=== PATIENT | male | born 1930 | race Caucasian/White ===

== ENCOUNTER 2016-12-05 12:51 | Inpatient (IN) | payer MEDICARE, OTHER ==
[~2016-12-05] VITALS: Ht 165.1 cm; Wt 65.0 kg
[2016-12-05] MEDS ORDERED: ONDANSETRON 4 MG INJ IV STA (12:54)
[2016-12-05] MEDS ORDERED: morphine 4 MG/ML VIAL IV STA (12:54)
[2016-12-05] MEDS ORDERED: SOD CHLORIDE 0.9% 1,000 ML IV STA (12:54)
[2016-12-05] MEDS ORDERED: ONDANSETRON 4 MG INJ IV PRN ×3 (13:00→18:00)
[2016-12-05] MEDS ORDERED: ACETAMINOPHEN 325 MG TAB PO PRN ×2 (13:00→18:00)
[2016-12-05 13:39] LABS: BASOPHILS % 0.2 % (0.0-2.0); EOSINOPHILS % 0.1 % (0.0-7.0); HEMATOCRIT 35.9 % (42.0-52.0); LYMPHOCYTES # 1.2 10^3/ul (0.8-2.9); MEAN CORPUSCULAR HEMOGLOBIN 30.6 pg (29.0-33.0); MEAN CORPUSCULAR HGB CONC 33.4 g/dl (32.0-37.0); MEAN CORPUSCULAR VOLUME 91.6 fl (82.0-101.0); MEAN PLATELET VOLUME 8.3 fl (7.4-10.4); MONOCYTES % 6.9 % (0.0-11.0); NEUTROPHIL # 12.5 10^3/ul (1.6-7.5); NEUTROPHILS % 84.3 % (39.0-77.0); PLATELET COUNT 528 10^3/UL (140-415); RED BLOOD COUNT 3.92 10^6/ul (4.70-6.10); RED CELL DISTRIBUTION WIDTH 12.5 % (11.5-14.5); WHITE BLOOD COUNT 14.9 10^3/ul (4.8-10.8)
--- NOTE | 2016-12-05 13:42 | RADRPT ---
PROCEDURE: Chest Radiograph. CLINICAL INDICATION: Abdominal pain TECHNIQUE: Single frontal chest radiograph. COMPARISON: CT abdomen pelvis 12/12/2015 FINDINGS: The heart is magnified. The cardiomediastinal silhouette is otherwise within normal limits. The le ft lung is clear.. There is a moderate right pleural effusion which may be loculated. There is a h azy ovoid opacity in the right mid lung zone which may represent fluid within the major fissure. A pulmonary mass or infiltrate could also have this appearance.. The bones are intact. IMPRESSION: 1. Moderate, possibly loculated right pleural effusion with adjacent atelectasis/infiltrate. 2. Ovoid opacity in the right mid lung zone which may represent fluid within the major fissure or m ay represent infiltrate or mass. Consider further evaluation with CT chest if indicated. RPTAT: KK .Carlito Pleitez MD, Date Time Electronically viewed and signed by .Carlito Pleitez MD, on 12/05/2016 13:42 .B/
[2016-12-05 13:55] LABS: INR 1.23; PROTIME 15.6 Sec (12.2-14.2); PT RATIO 1.2
[2016-12-05 13:56] LABS: PARTIAL THROMBOPLASTIN TIME 36.5 Sec (25.0-35.0)
[2016-12-05 13:57] LABS: ALANINE AMINOTRANSFERASE 25 IU/L (13-69); ALBUMIN 3.4 g/dl (3.3-4.9); ALKALINE PHOSPHATASE 129 IU/L (42-121); ANION GAP 20 (8-16); ASPARTATE AMINO TRANSFERASE 30 IU/L (15-46); BILIRUBIN,INDIRECT 0.7 mg/dl (0-1.1); BILIRUBIN,TOTAL 0.7 mg/dl (0.2-1.3); BLOOD UREA NITROGEN 21 mg/dl (7-20); CALCIUM 8.8 mg/dl (8.4-10.2); CARBON DIOXIDE 29 mmol/L (21-31); CHLORIDE 96 mmol/L (97-110); CREATININE 1.03 mg/dl (0.61-1.24); GLUCOSE 113 mg/dl (70-220); POTASSIUM 3.8 mmol/L (3.5-5.1); SODIUM 141 mmol/L (135-144); TOTAL PROTEIN 7.6 g/dl (6.1-8.1)
[2016-12-05 14:12] LABS: TROPONIN-I < 0.012 ng/ml (0.00-0.12)
[2016-12-05] MEDS ORDERED: AZTREONAM 1 GM/NS (PMX) 50 ML IVPB STA (14:34)
--- NOTE | 2016-12-05 14:47 | RADRPT ---
PROCEDURE: CT Abdomen and Pelvis without contrast. CLINICAL INDICATION: Chest and abdominal pain. TECHNIQUE: CT scan of the abdomen and pelvis without contrast was performed on a multidetector hig h-resolution CT scanner. The patient was scanned without intravenous contrast. Coronal and sagittal reformatted images were obtained from the axial source images. Images were reviewed on a high-resol [employer] PACS workstation. The total exam CTDI equals 8.07 mGy and the total exam DLP equals 445.04 mGy -cm. One or more of the following dose reduction techniques were used: Automated exposure control. Adjustment of the mA and/or kV according to patient size. Use of iterative reconstruction technique. COMPARISON: CT abdomen and pelvis 12/12/2015 FINDINGS: CT abdomen: The lung bases are remarkable for small loculated right pleural effusion. There is dense consolidati on in the right lower lobe concerning for pneumonia. There is focal pleural thickening versus locul ated pleural effusion along the anterior mid right hemithorax. The heart size is mildly enlarged wit hout pericardial thickening or effusion. The liver is normal in size and density without focal mass or intrahepatic biliary dilatation. The spleen is normal in size and homogeneous in density. The stomach is partially collapsed, but is austin ssly unremarkable. The pancreas as visualized is normal. The gallbladder is remarkable for choleli thiasis. There is no evidence for biliary dilatation. The adrenal glands are symmetric and normal. The kidneys are symmetrically unremarkable as well. No renal calculus or obstructive uropathy or m ass lesion is seen. The aorta is of normal caliber. Aortic vascular calcifications are present. There is no retroperit gan lymphadenopathy. The maria de jesus hepatis region is clear. The bowel and mesentery, as visualized, are equally unremarkable. CT pelvis: The small bowel loops situated within the pelvis are unremarkable. The patient is status post prost atectomy and pelvic lymphadenectomy . The pelvic sidewalls and inguinal regions are clear. The sigm oid colon and rectum are unremarkable. No mass, lymphadenopathy, or free fluid is seen. No acute i nflammation is seen. The surrounding osseous structures are remarkable for degenerative spondylosis of the spine. No osteolytic or osteoblastic lesion is detected. IMPRESSION: 1. Dense consolidation in the right lower lobe concerning for pneumonia. Small amount of loculated right-sided pleural effusion is present. Focal pleural thickening versus loculated pleural effusio n in the anterior right mid hemithorax. Recommend follow-up imaging to ensure resolution after the treatment. 2. Cholelithiasis without evidence of acute cholecystitis. 3. Aortoiliac atherosclerosis. 4. Status post prostatectomy and pelvic lymph node dissection. RPTAT: BB .Nayana Leon MD, MD Date Time Electronically viewed and signed by .Nayana Leon MD, MD on 12/05/2016 14:46 .O/
[2016-12-05] MEDS ORDERED: VANCOMYCIN 1 GM (PMX) 250 ML IVPB ONE (15:00)
[2016-12-05 15:28] VITALS: TEMP 98
[2016-12-05] MEDS ORDERED: FURO40TA4 PO (15:29)
--- NOTE | 2016-12-05 15:38 | ERA ---
ER Documentation Chief Complaint Date/Time DATE: 12/05/16 TIME: 15:35 Chief Complaint CHEST PAIN AND ABD PAIN SENT BY DR LAI. NO VOMITING. NAUSEA ONLY HPI Patient is an 86-year-old with no medical problems who presents with abdominal pain. The patient was sent by Dr. Lai for abdominal pain and confusion. He has had confusion over the past few weeks which is different than his normal. The patient was admitted at [facility] and had a full workup. The patient's temperature was [address] Lai wanted the patient admitted as he is unsure as to the etiology of the patient's symptoms at this time. ROS All systems reviewed and are negative except as per history of present illness. Medications Home Meds Reported Medications Furosemide* (Furosemide*) 40 Mg Tablet, 40 MG PO DAILY, TAB 12/05/16 Allergies Allergies: Coded Allergies: Penicillins (Verified Allergy, Unknown, 12/05/16) watermelon (Verified Allergy, Unknown, 12/05/16) PMhx/Soc Medical and Surgical Hx: pt denies Medical Hx, Unable to obtain Hx Alcohol Use: No Hx Substance Use: No Hx Tobacco Use: No Smoking Status: Never smoker FmHx Family History: No diabetes Physical Exam Vitals Vital Signs Date Time Temp Pulse Resp B/P Pulse Ox O2 Delivery O2 Flow Rate FiO2 12/05/16 15:28 98.0 89 20 118/67 97 Nasal Cannula 2.0 12/05/16 14:03 94 20 114/60 97 Nasal Cannula 2.0 12/05/16 13:13 98.2 102 21 105/68 97 Physical Exam Const: No acute distress Head: Atraumatic Eyes: Normal Conjunctiva ENT: Normal External Ears, Nose and Mouth. Neck: Full range of motion..~ No meningismus. Resp: Decreased breath sounds bilaterally Cardio: Regular rate and rhythm, no murmurs Abd: Diffuse tenderness to palpation with guarding Skin: No petechiae or rashes Back: No midline or flank tenderness Ext: No cyanosis, or edema Neur: Awake but confusion per the Result Diagram: 12/05/16 1330 12/05/16 1330 Results 24 hrs Laboratory Tests Test 12/05/16 13:30 White Blood Count 14.910^3/ul Red Blood Count 3.9210^6/ul Hemoglobin 12.0g/dl Hematocrit 35.9% Mean Corpuscular Volume 91.6fl Mean Corpuscular Hemoglobin 30.6pg Mean Corpuscular Hemoglobin Concent 33.4g/dl Red Cell Distribution Width 12.5% Platelet Count 06505^3/UL Mean Platelet Volume 8.3fl Neutrophils % 84.3% Lymphocytes % 8.0% Monocytes % 6.9% Eosinophils % 0.1% Basophils % 0.2% Nucleated Red Blood Cells % 0.0/100WBC Neutrophils # 12.510^3/ul Lymphocytes # 1.210^3/ul Monocytes # 1.010^3/ul Eosinophils # 0.010^3/ul Basophils # 0.010^3/ul Nucleated Red Blood Cells # 0.010^3/ul Prothrombin Time 15.6Sec Prothrombin Time Ratio 1.2 INR International Normalized Ratio 1.23 Activated Partial Thromboplast Time 36.5Sec Sodium Level 141mmol/L Potassium Level 3.8mmol/L Chloride Level 96mmol/L Carbon Dioxide Level 29mmol/L Anion Gap 20 Blood Urea Nitrogen 21mg/dl Creatinine 1.03mg/dl Glucose Level 113mg/dl Calcium Level 8.8mg/dl Total Bilirubin 0.7mg/dl Direct Bilirubin 0.00mg/dl Indirect Bilirubin 0.7mg/dl Aspartate Amino Transf (AST/SGOT) 30IU/L Alanine Aminotransferase (ALT/SGPT) 25IU/L Alkaline Phosphatase 129IU/L Troponin I < 0.012ng/ml Total Protein 7.6g/dl Albumin 3.4g/dl Globulin 4.20g/dl Albumin/Globulin Ratio 0.80 Lipase 86U/L Current Medications Medications (Trade) Dose Ordered Sig/Kelechi Route PRN Reason Start Time Stop Time Status Last Admin Dose Admin Sodium Chloride (NS) 1,000 ml @ 1,000 mls/hr Q1H STAT IV 12/05/16 12:54 12/05/16 13:53 DC 12/05/16 13:22 Morphine Sulfate (morphine) 4 mg ONCE STAT IV 12/05/16 12:54 12/05/16 12:56 DC 12/05/16 13:23 Ondansetron HCl (Zofran Inj) 4 mg ONCE STAT IV 12/05/16 12:54 12/05/16 12:56 DC 12/05/16 13:23 Ondansetron HCl (Zofran Inj) 4 mg BRIDGE ORDER PRN IV NAUSEA AND/OR VOMITING 12/05/16 13:00 12/06/16 12:59 Acetaminophen 650 mg 650 mg ER BRIDGE PRN PO MILD PAIN/FEVER 12/05/16 13:00 12/06/16 12:59 Vancomycin HCl 250 ml @ 125 mls/hr ONCE ONCE IVPB 12/05/16 15:00 12/05/16 16:59 Aztreonam (Azactam 1gm/NS (Pmx)) 50 ml @ 100 mls/hr ONCE STAT IVPB 12/05/16 14:34 12/05/16 15:03 DC 12/05/16 15:19 Procedures/MDM Chest x-ray shows pneumonia per radiology. CT scan shows pneumonia per radiology. EKG read by me: Rate/Rhythm: Regular rate and rhythm at a normal rate Intervals: Normal Impression: No evidence of ischemia or arrhythmia Patient is a 86-year-old male presents with abdominal pain. He was found to have acute pneumonia. The patient will be given vancomycin and aztreonam as he has a penicillin allergy. At this point I doubt true sepsis. The patient will be admitted to a medical surgical bed under the care of Dr. Lai. The patient will likely need continued antibiotics. The patient and family understand the plan and are okay for admission at this time. Departure Diagnosis: Primary Impression: Pneumonia Qualified Code: J18.9 - Pneumonia due to infectious organism, unspecified laterality, unspecified part of lung Additional Impressions: Altered mental status Qualified Code: R41.82 - Altered mental status, unspecified altered mental status type Abdominal pain Qualified Code: R10.84 - Generalized abdominal pain Condition: GUDELIA Li MD Dec 05, 2016 15:37
[2016-12-05 17:19] VITALS: Ht 165.1 cm; Wt 65.0 kg
[2016-12-05] MEDS ORDERED: NACL 0.9% 3 ML SYG IV SCH (18:00)
[2016-12-05] MEDS ORDERED: VANCOMYCIN IV PER PHARMACY XX SCH (18:00)
[2016-12-05] MEDS ORDERED: HALOPERIDOL 5 MG INJ IM PRN (18:00)
[2016-12-05 18:01] VITALS: BP 113/61; RESP 17
[2016-12-05] MEDS: FUROSEMIDE 40 MG INJ IV SCH ×2 (19:15→23:41)
[2016-12-05 20:55] VITALS: BP 107/57; RESP 18
--- NOTE | 2016-12-05 20:56 | HP ---
DATE OF ADMISSION: 12/05/2016 REASON FOR ADMISSION: Cough, chest pain and stomach pain. HISTORY OF PRESENT ILLNESS: This 86-year-old man was in his usual state of health until yesterday when he said he developed some cough with chest and upper abdominal pain. He also had some chills that "made him jump". The patient says that he has had some greenish phlegm that he is coughing up. The patient has had a decreased appetite. The patient has been eating and drinking some, but very little according to his . The patient has a history of dementia and is a poor historian. About 4 weeks ago, the patient was admitted to [facility] with a sore throat, fever, and altered mental status. The patient was in the hospital there and had a neurologic workup including a lumbar puncture, which was all negative. He was then transferred to a rehabilitation facility called [facility]. The patient, according to his and daughter, had improved, however, he has continued to be confused at times. He had a cough, but the cough at that time was dry. I saw the patient on December 02, 2016 in my office. At that time, he was more awake and less confused than he is now. CURRENT MEDICATIONS: Include the following, Centrum Silver, vitamin C 500 mg once a day, aspirin 81 mg a day, Prolia 60 mg subcutaneous every 6 months, vitamin D3 2000 units a day, Dulcolax laxative 5 mg delayed release 1 tablet once a day, MiraLAX daily, furosemide 80 mg orally once a day. PAST MEDICAL HISTORY: 1. Remarkable for prostate CA, status post total prostatectomy. 2. Basal cell CA of the skin removed. 3. Mid systolic click. 4. Torn cartilage ligament in the right knee, status post ACL, MCL. 5. Mitral valve prolapse. 6. Osteoporosis. 7. Dementia. ALLERGIES: PENICILLIN AND SULFA. PAST SURGICAL HISTORY: Prostatectomy for prostate cancer in 1995. FAMILY HISTORY: 1. Father . 2. Mother . SOCIAL HISTORY: The patient does not smoke. Does not drink alcohol. REVIEW OF SYSTEMS: CONSTITUTIONAL: He has had some chills. He has not had fever, but he has been weak and fatigued. HEENT: Eyes, no recent changes. Ears, nose, and throat. He denies sore throat. RESPIRATORY: He does have a productive cough. He does have pleuritic chest pain. He does seem to be dyspneic. GASTROINTESTINAL: He has had some abdominal pain in the upper abdominal area. NEUROLOGIC: He is weak diffusely. He is using a walker at home. He has no new obvious nor focal neurologic deficits.He is confused and not able to have a fluent conversation . GENITOURINARY: He is incontinent of urine. PHYSICAL EXAMINATION: GENERAL: At this time reveals an elderly, frail, patient who is fatigued. He is not able to carry on a full conversation. He does not follow simple commands. HEENT: Head normocephalic. Eyes, he is staring straight ahead and does not follow my finger at my command. Nose and mouth are normal. NECK: Supple. No neck vein distention. LUNGS: He has diminished breath sounds at both bases, more on the right than the left. HEART: Regular rhythm. No murmurs, gallops, or rubs. ABDOMEN: The abdomen is tender in the epigastric area and the abdomen is rigid. I am unable to palpate the liver or spleen. EXTREMITIES: He has 2 plus bilateral pitting edema. IMPRESSION: This patient presents now with multiple complaints. He was seen in the emergency room today. He had a chest x-ray, which shows a large right pleural effusion, possible infiltrate. This could be consistent with either a pneumonia with an effusion and/or some component of congestive heart failure. His abdominal CT scan was essentially unremarkable except for cholelithiasis without evidence of acute cholecystitis. He does have a large amount of peripheral edema, which he has had and seems increased at this time. He has not had heart disease in the past, but one must rule this out. This patient seems to have an ongoing dementing illness. The etiology of this is not entirely clear, but this has been going on for at least a year . PLAN: 1. Admit to med/surgery. 2. Start broad-spectrum antibiotics. CAT scan of brain . 3. IV diuretics. 4. Echocardiogram. 5. Will discuss with family regarding how aggressive to be with workup and other tests. 6. neurology , cardiology and pulmonary consults called . Dictated By: Jose Delgado MD /yvonne/ruddy /Document#: [id number] RAVINDER
--- NOTE | 2016-12-05 21:20 | RADRPT ---
PROCEDURE: CT Head without. CLINICAL INDICATION: Confusion. TECHNIQUE: The study was performed utilizing a multi-slice, multidetector CT scanner. Direct spira l 1 mm axial sections were obtained through the head and without the use of intravenous contrast mat erial. 1 or more of the following dose reduction techniques were utilized: Automated exposure cont rol, adjustment of the mA and/or kV according to patient's size, iterative reconstruction technique. Coronal and sagittal reformations were obtained. The images were reviewed on a PACS workstation. RADIATION DOSE: CTDIvol: 44.6 mGyDLP: 720.2 mGy-cm COMPARISON: No prior studies are available for comparison. FINDINGS: There is no intracranial hemorrhage, extra-axial fluid collection, mass lesion, midline shift or hyd rocephalus. There is mild prominence of the cerebral sulci, lateral and third ventricles. There is moderate patchy periventricular and subcortical white matter hypodensity. There is mild arterioscl erotic calcification of the parasellar internal carotid arteries. The hays-white matter differentia tion is preserved. The basal cisterns are patent. The midline structures are intact. 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 The orbits, calvarium and extracranial soft tissues are normal in appearance. The v isualized paranasal sinuses, mastoid air cells and middle ear cavities are normally aerated. IMPRESSION: 1. No acute intracranial abnormality. No intracranial hemorrhage, extra-axial fluid collection, ma ss lesion or hydrocephalous. 2. Mild peripheral and central cerebral volume loss. 3. Moderate patchy periventricular and subcortical white matter hypodensity, likely related to mainspring former brace end moi microangiopathic changes. RPTAT: HGAS .Jose Perez MD, Date Time Electronically viewed and signed by .Jose Perez MD, on 12/05/2016 21:20 .S/
[2016-12-06 02:29] VITALS: BP 122/63; RESP 20
[2016-12-06] MEDS: FUROSEMIDE 40 MG INJ IV SCH ×2 (05:37→17:13)
[2016-12-06 07:08] LABS: ALBUMIN 3.4 g/dl (3.3-4.9); ALBUMIN/GLOBULIN RATIO 0.91; BILIRUBIN,INDIRECT 0.7 mg/dl (0-1.1); BILIRUBIN,TOTAL 0.7 mg/dl (0.2-1.3); CALCIUM 8.4 mg/dl (8.4-10.2); CREATININE 1.01 mg/dl (0.61-1.24); MAGNESIUM 2.3 mg/dl (1.7-2.5); POTASSIUM 3.7 mmol/L (3.5-5.1); TOTAL PROTEIN 7.1 g/dl (6.1-8.1)
[2016-12-06 07:39] VITALS: BP 90/52; RESP 22
[2016-12-06 08:05] LABS: BASOPHILS % 0.2 % (0.0-2.0); EOSINOPHILS % 0.2 % (0.0-7.0); HEMATOCRIT 37.3 % (42.0-52.0); HEMOGLOBIN 11.9 g/dl (14.0-18.0); LYMPHOCYTES # 1.4 10^3/ul (0.8-2.9); LYMPHOCYTES % 9.4 % (15.0-51.0); MEAN CORPUSCULAR HEMOGLOBIN 29.6 pg (29.0-33.0); MEAN CORPUSCULAR HGB CONC 31.9 g/dl (32.0-37.0); MEAN CORPUSCULAR VOLUME 92.8 fl (82.0-101.0); MEAN PLATELET VOLUME 8.6 fl (7.4-10.4); MONOCYTE # 1.2 10^3/ul (0.3-0.9); MONOCYTES % 7.7 % (0.0-11.0); NEUTROPHIL # 12.2 10^3/ul (1.6-7.5); NEUTROPHILS % 81.5 % (39.0-77.0); PLATELET COUNT 520 10^3/UL (140-415); RED BLOOD COUNT 4.02 10^6/ul (4.70-6.10); RED CELL DISTRIBUTION WIDTH 12.6 % (11.5-14.5)
--- NOTE | 2016-12-06 10:09 | CONS ---
Date/Time of Note Date/Time of Note DATE: 12/06/16 TIME: 09:53 Assessment/Plan Assessment/Plan Chief Complaint/Hosp Course 1-right pleural effusion. This is a new finding compared to previous chest x- ray from [place] 2 months ago. Given elevated white count and loculation suspect infectious etiology. Given unilateral effusion less likely cardiac. Echocardiogram is pending. Will obtain BMP as well. 2. Chest pain. Sounds pleuritic in nature. Likely related to ongoing pulmonary process. Would repeat troponin and obtain EKG which is not available for review. Echocardiogram is pending. 3. Edema- pitting ble, no mention of this on previous admission. will obtain bnp , echo pending. ok to diurese. keep ble elevated. obtain venous u/s to r/o dvt. 4. Chills and leukocytosis also at the right-effusion possible infection on antibiotics.consider diagnostic/therapeutic thoracentesis 5. Dementia-patient is alert I will confused. Previous workup negative at [facility] Problems: Consultation Date/Type/Reason Admit Date/Time Dec 05, 2016 at 12:55 Date of Consultation: Dec 06, 2016 Type of Consultation: Cardiology Reason for Consultation Edema Referring Provider: CAYDEN LAI MD Hx of Present Illness Patient is a 86-year-old man without past cardiac history. Patient recently admitted to [facility] in October due to altered mental status. Workup at that time was negative and notable for no effusion or infiltrate on chest x- ray. EKG at that time showed a normal sinus rhythm with no significant abnormalities. Patient now admitted for abdominal pain and chest pain. Patient reports cough with chills. States when he coughs he has abdominal pain and chest pain. Is unclear how active patient is though he states he is moving he does not get chest pain or shortness of breath. Patient noted to have right pleural effusion with possible loculation on chest x-ray and CT scan. This is a new finding. Also with pitting edema in the bilateral lower extremities at the ankles. He does have history of dementia but is alert and responsive to questions. His face and a very soft voice making it difficult to understand him. Constitutional: chills Eyes: no complaints ENT: no complaints Respiratory: cough, shortness of breath Cardiovascular: chest pain Gastrointestinal: pain Genitourinary: no complaints Musculoskeletal: no complaints Skin: no complaints Neurologic: confusion Psychological: nl mood/affect, no complaints Past Medical History Reviewed and unchanged. per Dr. Lai's H+P note 1. Remarkable for prostate CA, status post total prostatectomy. 2. Basal cell CA of the skin removed. 3. Mid systolic click. 4. Torn cartilage ligament in the right knee, status post ACL, MCL. 5. Mitral valve prolapse. 6. Osteoporosis. 7. Dementia. Family History Significant Family History: other (pt denies high risk cad) Social History Alcohol Use: none Smoking Status: Never smoker Drug Use: none Exam/Review of Systems Vital Signs Vitals Vital Signs Date Time Temp Pulse Resp B/P Pulse Ox O2 Delivery O2 Flow Rate FiO2 12/06/16 07:39 99.2 79 22 90/52 91 12/05/16 15:28 Nasal Cannula 2.0 Intake and Output 12/05/16 12/05/16 12/06/16 15:00 23:00 07:00 Intake Total 250 ml 220 ml Balance 250 ml 220 ml Exam Constitutional: alert, other (speaks in very soft voice), No oriented Psych: nl mood/affect, no complaints Head: atraumatic, normocephalic Eyes: EOMI, nl conjunctiva, nl lids ENMT: nl nasal mucosa & septum Neck: non-tender, supple, No jvd Respiratory: other (decreased bs R base) Cardiovascular: edema (2+ pitting in ankles ble), other (rrr, nl s1s2, ii/vi llsb) Gastrointestinal: non-tender, soft Musculoskeletal: nl extremities to inspection, other Extremities: normal pulses Neurological: CONTINUITY READER II-XII intact Skin: nl turgor, No rash or lesions Results Result Diagram: 12/06/16 0730 12/06/16 0602 Results 24 hrs Laboratory Tests Test 12/05/16 13:30 12/06/16 06:02 12/06/16 07:30 White Blood Count 14.9 H 15.0 H Red Blood Count 3.92 L 4.02 L Hemoglobin 12.0 L 11.9 L Hematocrit 35.9 L 37.3 L Mean Corpuscular Volume 91.6 92.8 Mean Corpuscular Hemoglobin 30.6 29.6 Mean Corpuscular Hemoglobin Concent 33.4 31.9 L Red Cell Distribution Width 12.5 12.6 Platelet Count 528 H 520 H Mean Platelet Volume 8.3 8.6 Neutrophils % 84.3 H 81.5 H Lymphocytes % 8.0 L 9.4 L Monocytes % 6.9 7.7 Eosinophils % 0.1 0.2 Basophils % 0.2 0.2 Nucleated Red Blood Cells % 0.0 0.0 Neutrophils # 12.5 H 12.2 H Lymphocytes # 1.2 1.4 Monocytes # 1.0 H 1.2 H Eosinophils # 0.0 0.0 Basophils # 0.0 0.0 Nucleated Red Blood Cells # 0.0 0.0 Prothrombin Time 15.6 H Prothrombin Time Ratio 1.2 INR International Normalized Ratio 1.23 Activated Partial Thromboplast Time 36.5 H Sodium Level 141 142 Potassium Level 3.8 3.7 Chloride Level 96 L 101 Carbon Dioxide Level 29 27 Anion Gap 20 H 18 H Blood Urea Nitrogen 21 H 17 Creatinine 1.03 1.01 Glucose Level 113 96 Calcium Level 8.8 8.4 Total Bilirubin 0.7 0.7 Direct Bilirubin 0.00 0.00 Indirect Bilirubin 0.7 0.7 Aspartate Amino Transf (AST/SGOT) 30 43 Alanine Aminotransferase (ALT/SGPT) 25 28 Alkaline Phosphatase 129 H 116 Troponin I < 0.012 Total Protein 7.6 7.1 Albumin 3.4 3.4 Globulin 4.20 H 3.70 H Albumin/Globulin Ratio 0.80 0.91 Lipase 86 Phosphorus Level 3.0 Magnesium Level 2.3 Medications Medications Current Medications Ondansetron HCl (Zofran Inj) 4 mg Q6H PRN IV NAUSEA AND/OR VOMITING; Start 12/05 at 18:00 Acetaminophen (Tylenol Tab) 650 mg Q6H PRN PO PAIN LEVEL 1-3 OR FEVER; Start at 18:00 Enoxaparin Sodium (Lovenox) 40 mg DAILY SC ; Start 12/06/16 at 09:00 Acetaminophen (Tylenol Liquid) 650 mg Q4H PRN PO PAIN AND OR ELEVATED TEMP; Start 12/05/16 at 18:00 Ondansetron HCl (Zofran Inj) 4 mg Q4H PRN IV NAUSEA AND/OR VOMITING; Start 12/05 at 18:00 Haloperidol 1 mg 1 mg Q4 PRN IM Agitation Last administered on 12/05/16t 18:50; Admin Dose 1 MG; Start 12/05/16 at 18:00 Aztreonam 50 ml @ 100 mls/hr Q8 IVPB ; Start 12/06/16 at 22:00 Vancomycin HCl (Vancocin) 250 ml @ 125 mls/hr Q24H IVPB ; Start 12/06/16 at 11: 00 Procedures Procedures cxr images reviewed R pleural effusion with possible loculation EKG at [facility] reviewed, current ekg/echo pending SEEMA ROBB Dec 06, 2016 10:04
--- NOTE | 2016-12-06 10:14 | CONS ---
Date/Time of Note Date/Time of Note DATE: 12/06/16 TIME: 10:06 Assessment/Plan Assessment/Plan Chief Complaint/Hosp Course 86 yo male with history of prostate CA s/p prostatectomy, osteoporosis, dementia and recent gradual cognitive decline admitted with pleural effusion being treated with IV antibiotics. Head CT unrevealing for acute process. Suspect delirium secondary to active metabolic issues superimposed on dementia would continue current management as planned, once medically more stabilized may follow up with neurology and consider further cognitive testing and trial of Aricept to help slow down degenerative process would avoid haldol and ativan or any other bendzodiazepines as they may further worsen delirium, would recommend low dose Seroquel may use 25 mg qhs prn for agitation thank you for involving me in his care, i will follow up as needed Problems: Consultation Date/Type/Reason Admit Date/Time Dec 05, 2016 at 12:55 Date of Consultation: Dec 06, 2016 Type of Consultation: Neurology Reason for Consultation encephalopathy delirium Hx of Present Illness 86 year old male with history of cognitive decline recent admission to [facility] over 4 weeks ago admitted with AMS, fever and sore throat received previous unrevealing neurologic work up. He was transferred to a rehab facility [facility], was improving reportedly confused at times. Mental status has been fluctuating was seen by PCP on December 02 with less confusion at that time, he is now admitted for pleural effusion and infiltrate and CHF receiving diuresis and antibiotics. Head CT was obtained yesterday which showed no acute intracranial abnormal, no hemorrhage, no hydrocephalus with mild atrophy and chronic periventricular changes. Past Medical History as per [facility] Social History Smoking Status: Never smoker Exam/Review of Systems Vital Signs Vitals Vital Signs Date Time Temp Pulse Resp B/P Pulse Ox O2 Delivery O2 Flow Rate FiO2 12/06/16 07:39 99.2 79 22 90/52 91 12/05/16 15:28 Nasal Cannula 2.0 Intake and Output 12/05/16 12/05/16 12/06/16 15:00 23:00 07:00 Intake Total 250 ml 220 ml Balance 250 ml 220 ml Exam awake and alert can state his name difficult to assess orientation patient is very hypophonic and dysarthric CN: VERONIQUE, blinks to threat no facial asymmetry tongue midline Motor: some tremors noted in UE only on intention, no resting tremors no cogwheeling tone is wnl, can lift both UE and LE without obvious drift Coordination poor cooperation for FTN testing Reflexes 1+ throughout toes withdraw bilaterally gait unable to test Results Result Diagram: 12/06/16 0730 12/06/1602 Results 24 hrs Laboratory Tests Test 12/05/16 13:30 12/06/16 06:02 12/06/16 07:30 White Blood Count 14.9 H 15.0 H Red Blood Count 3.92 L 4.02 L Hemoglobin 12.0 L 11.9 L Hematocrit 35.9 L 37.3 L Mean Corpuscular Volume 91.6 92.8 Mean Corpuscular Hemoglobin 30.6 29.6 Mean Corpuscular Hemoglobin Concent 33.4 31.9 L Red Cell Distribution Width 12.5 12.6 Platelet Count 528 H 520 H Mean Platelet Volume 8.3 8.6 Neutrophils % 84.3 H 81.5 H Lymphocytes % 8.0 L 9.4 L Monocytes % 6.9 7.7 Eosinophils % 0.1 0.2 Basophils % 0.2 0.2 Nucleated Red Blood Cells % 0.0 0.0 Neutrophils # 12.5 H 12.2 H Lymphocytes # 1.2 1.4 Monocytes # 1.0 H 1.2 H Eosinophils # 0.0 0.0 Basophils # 0.0 0.0 Nucleated Red Blood Cells # 0.0 0.0 Prothrombin Time 15.6 H Prothrombin Time Ratio 1.2 INR International Normalized Ratio 1.23 Activated Partial Thromboplast Time 36.5 H Sodium Level 141 142 Potassium Level 3.8 3.7 Chloride Level 96 L 101 Carbon Dioxide Level 29 27 Anion Gap 20 H 18 H Blood Urea Nitrogen 21 H 17 Creatinine 1.03 1.01 Glucose Level 113 96 Calcium Level 8.8 8.4 Total Bilirubin 0.7 0.7 Direct Bilirubin 0.00 0.00 Indirect Bilirubin 0.7 0.7 Aspartate Amino Transf (AST/SGOT) 30 43 Alanine Aminotransferase (ALT/SGPT) 25 28 Alkaline Phosphatase 129 H 116 Troponin I < 0.012 Total Protein 7.6 7.1 Albumin 3.4 3.4 Globulin 4.20 H 3.70 H Albumin/Globulin Ratio 0.80 0.91 Lipase 86 Phosphorus Level 3.0 Magnesium Level 2.3 Medications Medications Current Medications Ondansetron HCl (Zofran Inj) 4 mg Q6H PRN IV NAUSEA AND/OR VOMITING; Start 12/05 at 18:00 Acetaminophen (Tylenol Tab) 650 mg Q6H PRN PO PAIN LEVEL 1-3 OR FEVER; Start at 18:00 Enoxaparin Sodium (Lovenox) 40 mg DAILY SC ; Start 12/06/16 at 09:00 Acetaminophen (Tylenol Liquid) 650 mg Q4H PRN PO PAIN AND OR ELEVATED TEMP; Start 12/05/16 at 18:00 Ondansetron HCl (Zofran Inj) 4 mg Q4H PRN IV NAUSEA AND/OR VOMITING; Start 12/05 at 18:00 Haloperidol 1 mg 1 mg Q4 PRN IM Agitation Last administered on 12/05/16t 18:50; Admin Dose 1 MG; Start 12/05/16 at 18:00 Aztreonam 50 ml @ 100 mls/hr Q8 IVPB ; Start 12/06/16 at 22:00 Vancomycin HCl (Vancocin) 250 ml @ 125 mls/hr Q24H IVPB ; Start 12/06/16 at 11: 00 KADY MILLER MD Dec 06, 2016 10:14
[2016-12-06 10:47] LABS: TROPONIN-I 0.016 ng/ml (0.00-0.12)
[2016-12-06] MEDS: VANCOMYCIN 1 GM in NS 250 ML IVPB SCH (12:29)
[2016-12-06] MEDS: ENOXAPARIN 40 MG/0.4 ML SYG SC SCH (12:29)
[2016-12-06] MEDS ORDERED: QUETIAPINE 25 MG TAB PO SCH (12:30)
--- NOTE | 2016-12-06 12:39 | PN ---
Date/Time of Note Date/Time of Note DATE: 12/06/16 TIME: 12:32 Assessment/Plan VTE Prophylaxis VTE Prophylaxis Intervention: LMWH Lines/Catheters [facility] Saline Lock Urinary Cath still in place: No Assessment/Plan Chief Complaint/Hosp Course 1. Dementia with superimposed acute encephalopathy. He seems somewhat better today. He was seen by neurology. They agree acute encephalopathy superimposed on dementia. CAT scan of head did not show any acute changes. 2. Right pleural effusion. It seems loculated ,could be secondary to infection. He is on antibiotics. Pulmonary consultation called. Discussed case with Dr. Nick . 3. Peripheral edema ,rule out congestive heart failure , echocardiogram is pending. Cardiology has seen patient and will follow. The patient does have an elevated BNP. Venous Dopplers of both legs were ordered to rule out DVT. 4. Debility. 5. Will advance diet as tolerated. 6. Discussed above with . Problems: Subjective 24 Hr Interval Summary Free Text/Dictation He is more awake today . He seems less agitated. He still has some right- sided pleuritic chest pain. Constitutional: disoriented Respiratory: cough, pleuritic pain, shortness of breath Cardiovascular: chest pain, edema Gastrointestinal: no complaints Genitourinary: no complaints Neurologic: confusion Exam/Review of Systems Vital Signs Vitals Vital Signs Date Time Temp Pulse Resp B/P Pulse Ox O2 Delivery O2 Flow Rate FiO2 12/06/16 07:39 99.2 79 22 90/52 91 12/05/16 15:28 Nasal Cannula 2.0 Intake and Output 12/05/16 12/05/16 12/06/16 15:00 23:00 07:00 Intake Total 250 ml 220 ml Balance 250 ml 220 ml Exam Constitutional: alert, frail Respiratory: congested cough, diminished breath sounds Cardiovascular: edema, regular rate and rhythm Gastrointestinal: non-tender, soft Extremities: edema Neurological: confused, lethargic Results Result Diagram: 12/06/16 0730 12/06/16 0602 Results 24 hrs Laboratory Tests Test 12/05/16 13:30 12/06/16 06:02 12/06/16 07:30 White Blood Count 14.9 H 15.0 H Red Blood Count 3.92 L 4.02 L Hemoglobin 12.0 L 11.9 L Hematocrit 35.9 L 37.3 L Mean Corpuscular Volume 91.6 92.8 Mean Corpuscular Hemoglobin 30.6 29.6 Mean Corpuscular Hemoglobin Concent 33.4 31.9 L Red Cell Distribution Width 12.5 12.6 Platelet Count 528 H 520 H Mean Platelet Volume 8.3 8.6 Neutrophils % 84.3 H 81.5 H Lymphocytes % 8.0 L 9.4 L Monocytes % 6.9 7.7 Eosinophils % 0.1 0.2 Basophils % 0.2 0.2 Nucleated Red Blood Cells % 0.0 0.0 Neutrophils # 12.5 H 12.2 H Lymphocytes # 1.2 1.4 Monocytes # 1.0 H 1.2 H Eosinophils # 0.0 0.0 Basophils # 0.0 0.0 Nucleated Red Blood Cells # 0.0 0.0 Prothrombin Time 15.6 H Prothrombin Time Ratio 1.2 INR International Normalized Ratio 1.23 Activated Partial Thromboplast Time 36.5 H Sodium Level 141 142 Potassium Level 3.8 3.7 Chloride Level 96 L 101 Carbon Dioxide Level 29 27 Anion Gap 20 H 18 H Blood Urea Nitrogen 21 H 17 Creatinine 1.03 1.01 Glucose Level 113 96 Calcium Level 8.8 8.4 Total Bilirubin 0.7 0.7 Direct Bilirubin 0.00 0.00 Indirect Bilirubin 0.7 0.7 Aspartate Amino Transf (AST/SGOT) 30 43 Alanine Aminotransferase (ALT/SGPT) 25 28 Alkaline Phosphatase 129 H 116 Troponin I < 0.012 0.016 Total Protein 7.6 7.1 Albumin 3.4 3.4 Globulin 4.20 H 3.70 H Albumin/Globulin Ratio 0.80 0.91 Lipase 86 Phosphorus Level 3.0 Magnesium Level 2.3 B-Type Natriuretic Peptide 1450 H Medications Medications Current Medications Ondansetron HCl (Zofran Inj) 4 mg Q6H PRN IV NAUSEA AND/OR VOMITING; Start 12/05 at 18:00 Acetaminophen (Tylenol Tab) 650 mg Q6H PRN PO PAIN LEVEL 1-3 OR FEVER; Start at 18:00 Enoxaparin Sodium (Lovenox) 40 mg DAILY SC Last administered on 12/06/16t 12:29 ; Admin Dose 40 MG; Start 12/06/16 at 09:00 Acetaminophen (Tylenol Liquid) 650 mg Q4H PRN PO PAIN AND OR ELEVATED TEMP; Start 12/05/16 at 18:00 Ondansetron HCl 4 mg 4 mg Q4H PRN IV NAUSEA AND/OR VOMITING; Start 12/05/16 at 18:00 Aztreonam 50 ml @ 100 mls/hr Q8 IVPB ; Start 12/06/16 at 22:00 Vancomycin HCl (Vancocin) 250 ml @ 125 mls/hr Q24H IVPB Last administered on t 12:29; Admin Dose 125 MLS/HR; Start 12/06/16 at 11:00 Quetiapine Fumarate (Seroquel) 25 mg BID PO ; Start 12/06/16 at 12:30 CAYDEN LAI MD Dec 06, 2016 12:39
[2016-12-06 14:00] VITALS: BP 109/58; RESP 22
--- NOTE | 2016-12-06 15:37 | RADRPT ---
PROCEDURE: Bilateral lower extremity venous duplex. CLINICAL INDICATION: Lower extremity pain and swelling. TECHNIQUE: Multiple longitudinal and transverse images of the bilateral lower extremity veins were obtained with hays scale and color Doppler imaging. 2D grayscale measurements with compression, co eddie Doppler flow, and augmentation was performed. The calf veins were interrogated as well. COMPARISON: No prior studies are available for comparison. FINDINGS: The bilateral common femoral, superficial femoral and popliteal veins are normally compressible thro ughout. Color flow demonstrates normal filling of the vessel. Normal waveforms are visualized and there is normal response to augmentation. The calf veins visualized are equally unremarkable. IMPRESSION: 1. No evidence of a deep vein thrombosis involving either lower extremity. RPTAT: QQ .Balbir Parkinson MD, MD Date Time Electronically viewed and signed by .Balbir Parkinson MD, on 12/06/2016 15:36 .L/
--- NOTE | 2016-12-06 17:52 | CONS ---
Date/Time of Note Date/Time of Note DATE: 12/06/16 TIME: 17:41 Assessment/Plan Assessment/Plan Additional Assessment/Plan IMP: 1. Multi-loculated small right pleural effusion with associated RLL pneumonia-- likely represents an complicated parapneumonic effusion/empyema. Concern for chronic aspiration. Unfortunately, the size of the effusion will make it a bit challenging for IR to perform U/S guided thoracentesis. RECS: 1. Obtain CT chest non-contrast to better evaluate the mid to upper lung zones not seen on CT abdomen. 2. CT-guided diagnostic thoracentesis 3. Broaden abx coverage. Recognize PCN allergy, however, carbapenem should be safe (azteonam not ideal). 4. Suggest video swallow eval. 5. Would maintain NPO Consultation Date/Type/Reason Admit Date/Time Dec 05, 2016 at 12:55 Date of Consultation: Dec 06, 2016 Type of Consultation: Pulm Hx of Present Illness Briefly, this is an 86-year-old man with a history of rapidly progressive dementia s/p recent hospitalization at [place], followed by transfer to a rehab facility, who presents with some cough, chills, and leukocytosis--noted to have a multiloculated right pleural effusion. He is very sleepy now and not able to follow commands. Subjective hx not possible: pt non-verbal Constitutional: disoriented Eyes: no complaints ENT: no complaints Respiratory: cough, pleuritic pain, shortness of breath Cardiovascular: chest pain, edema Gastrointestinal: no complaints Genitourinary: no complaints Musculoskeletal: no complaints Skin: no complaints Neurologic: confusion Psychological: nl mood/affect, no complaints Past Medical History 1. Remarkable for prostate CA, status post total prostatectomy. 2. Basal cell CA of the skin removed. 3. Mid systolic click. 4. Torn cartilage ligament in the right knee, status post ACL, MCL. 5. Mitral valve prolapse. 6. Osteoporosis. 7. Dementia. Past Surgical History prostatectomy Family History Significant Family History: no pertinent family hx Social History Alcohol Use: none Smoking Status: Never smoker Drug Use: none Exam/Review of Systems Vital Signs Vitals Vital Signs Date Time Temp Pulse Resp B/P Pulse Ox O2 Delivery O2 Flow Rate FiO2 12/06/16 14:00 99.8 85 22 109/58 97 12/05/16 15:28 Nasal Cannula 2.0 Intake and Output 8/4/17 8/4/17 8/5/17 15:00 23:00 07:00 Intake Total 250 ml 220 ml Balance 250 ml 220 ml Exam Constitutional: non-verbal Head: atraumatic, normocephalic Eyes: nl conjunctiva, nl sclera ENMT: mucosa pink and moist, nl external ears & nose Neck: non-tender, supple Respiratory: diminished breath sounds Cardiovascular: nl pulses, regular rate and rhythm Gastrointestinal: non-tender, soft Extremities: normal pulses Neurological: confused, lethargic Results Result Diagram: 12/06/16 0730 12/06/16 0602 Results 24 hrs Laboratory Tests Test 12/06/16 06:02 12/06/16 07:30 Sodium Level 142 Potassium Level 3.7 Chloride Level 101 Carbon Dioxide Level 27 Anion Gap 18 H Blood Urea Nitrogen 17 Creatinine 1.01 Glucose Level 96 Calcium Level 8.4 Phosphorus Level 3.0 Magnesium Level 2.3 Total Bilirubin 0.7 Direct Bilirubin 0.00 Indirect Bilirubin 0.7 Aspartate Amino Transf (AST/SGOT) 43 Alanine Aminotransferase (ALT/SGPT) 28 Alkaline Phosphatase 116 Troponin I 0.016 B-Type Natriuretic Peptide 1450 H Total Protein 7.1 Albumin 3.4 Globulin 3.70 H Albumin/Globulin Ratio 0.91 White Blood Count 15.0 H Red Blood Count 4.02 L Hemoglobin 11.9 L Hematocrit 37.3 L Mean Corpuscular Volume 92.8 Mean Corpuscular Hemoglobin 29.6 Mean Corpuscular Hemoglobin Concent 31.9 L Red Cell Distribution Width 12.6 Platelet Count 520 H Mean Platelet Volume 8.6 Neutrophils % 81.5 H Lymphocytes % 9.4 L Monocytes % 7.7 Eosinophils % 0.2 Basophils % 0.2 Nucleated Red Blood Cells % 0.0 Neutrophils # 12.2 H Lymphocytes # 1.4 Monocytes # 1.2 H Eosinophils # 0.0 Basophils # 0.0 Nucleated Red Blood Cells # 0.0 Medications Medications Current Medications Enoxaparin Sodium (Lovenox) 40 mg DAILY SC Last administered on 12/06/16t 12:29 ; Admin Dose 40 MG; Start 12/06/16 at 09:00 Acetaminophen (Tylenol Liquid) 650 mg Q4H PRN PO PAIN AND OR ELEVATED TEMP; Start 12/05/16 at 18:00 Ondansetron HCl 4 mg 4 mg Q4H PRN IV NAUSEA AND/OR VOMITING; Start 12/05/16 at 18:00 Aztreonam 50 ml @ 100 mls/hr Q8 IVPB ; Start 12/06/16 at 22:00 Vancomycin HCl (Vancocin) 250 ml @ 125 mls/hr Q24H IVPB Last administered on 12:29; Admin Dose 125 MLS/HR; Start 12/06/16 at 11:00 Quetiapine Fumarate (Seroquel) 25 mg BID PO Last administered on 12/06/16 12:38 ; Admin Dose 25 MG; Start 12/06/16 at 12:30 LINDA BARNES MD Dec 06, 2016 17:52
[2016-12-06 21:29] VITALS: BP 113/57; RESP 21
[2016-12-06] MEDS ORDERED: AZTREONAM 1 GM/NS (PMX) 50 ML IVPB SCH (22:00)
[2016-12-06] MEDS: MEROPENEM 1 GM/50ML(PMX) 50 ML IVPB SCH (22:17)
[2016-12-06] MEDS: ACETAMINOPHEN 650MG/20.3ML CUP PO PRN (22:22)
[2016-12-07 05:14] VITALS: BP 111/68
[2016-12-07] MEDS: FUROSEMIDE 40 MG INJ IV SCH ×2 (05:14→17:37)
[2016-12-07 07:22] VITALS: BP 114/57; RESP 22
[2016-12-07] MEDS: MEROPENEM 1 GM/50ML(PMX) 50 ML IVPB SCH ×2 (09:01→22:12)
[2016-12-07] MEDS: QUETIAPINE 25 MG TAB PO SCH ×2 (09:02→22:12)
[2016-12-07] MEDS: ENOXAPARIN 40 MG/0.4 ML SYG SC SCH (09:03)
[2016-12-07 11:03] LABS: BASOPHILS % 0.1 % (0.0-2.0); EOSINOPHILS % 0.1 % (0.0-7.0); HEMATOCRIT 38.9 % (42.0-52.0); HEMOGLOBIN 12.6 g/dl (14.0-18.0); LYMPHOCYTES # 0.9 10^3/ul (0.8-2.9); LYMPHOCYTES % 4.5 % (15.0-51.0); MEAN CORPUSCULAR HEMOGLOBIN 30.1 pg (29.0-33.0); MEAN CORPUSCULAR HGB CONC 32.4 g/dl (32.0-37.0); MEAN CORPUSCULAR VOLUME 92.8 fl (82.0-101.0); MEAN PLATELET VOLUME 8.4 fl (7.4-10.4); MONOCYTE # 0.8 10^3/ul (0.3-0.9); NEUTROPHIL # 18.2 10^3/ul (1.6-7.5); NEUTROPHILS % 90.7 % (39.0-77.0); PLATELET COUNT 578 10^3/UL (140-415); RED BLOOD COUNT 4.19 10^6/ul (4.70-6.10); RED CELL DISTRIBUTION WIDTH 12.4 % (11.5-14.5); WHITE BLOOD COUNT 20.1 10^3/ul (4.8-10.8)
[2016-12-07 11:31] LABS: ALBUMIN 3.3 g/dl (3.3-4.9); ALBUMIN/GLOBULIN RATIO 0.84; BILIRUBIN,INDIRECT 0.6 mg/dl (0-1.1); BILIRUBIN,TOTAL 0.6 mg/dl (0.2-1.3); CALCIUM 8.4 mg/dl (8.4-10.2); CREATININE 0.99 mg/dl (0.61-1.24); MAGNESIUM 2.3 mg/dl (1.7-2.5); PHOSPHORUS 3.2 mg/dl (2.5-4.9); POTASSIUM 4.1 mmol/L (3.5-5.1); TOTAL PROTEIN 7.2 g/dl (6.1-8.1)
[2016-12-07] MEDS: VANCOMYCIN 1 GM in NS 250 ML IVPB SCH (11:41)
--- NOTE | 2016-12-07 12:05 | RADRPT ---
Echocardiogram Report Patient Name: DENNY CHRISTIANSEN Gender: Male Date: 1930 Study Date: 06-Dec-2016 Guideman: JENY Location: I Ref. Physician: CAYDEN LAI Quality: Technically Difficult Study Procedures: Transthoracic echocardiogram examination, no parasternal images. Indications: Edema. 2D/M Mode Doppler Measurement Value Normal Range Measurement Value Normal Range IVSd 2D 1.1 0.6 - 1.1 cm AV Peak Zain 1.1 m/sec LA Dimen 2D 2.4 2.3 - 4.0 cm AV Peak PG 5.0 mmHg LVOT Peak Zain 1.0 m/sec MV E Peak Zain 0.5 m/sec MV A Peak Zain 0.8 m/sec MV E/A 0.7 MV Decel Time 252 msec MV Decel Treasure 2 MV E/A 0.7 Findings Left Ventricle: Normal left ventricular cavity size, wall thickness and systolic function. Normal left ventricular systolic function. Tissue Doppler/Mitral Doppler indices are consistent with impaired relaxation (Stage I diastolic dysfunction). Normal left ventricular wall thickness. The left ventricular ejection fraction is visually estimated at 65 %. Right Ventricle: Normal right ventricular size. Normal right ventricular systolic function. Left Atrium: The left atrium is normal in size and appearance. Right Atrium: The right atrium is normal in size and appearance. Atrial Septum: Normal atrial septum. Mitral Valve: Normal appearance and function of the mitral valve with trace physiologic regurgitation. Aortic Valve: The aortic valve is not well visualized. No significant aortic stenosis or insufficiency. Tricuspid Valve: Normal appearance of the tricuspid valve. No evidence of tricuspid regurgitation. Pulmonic Valve: The pulmonic valve is not visualized. Pericardium: Normal pericardium with no significant pericardial effusion. Right pleural effusion seen. Aorta: The aorta is not visualized. IVC: Normal inferior vena cava appearance. Pulmonary Artery: Pulmonary artery is not well visualized. Conclusions 1.Fair quality echo, parasternal views not obtained. 2.Normal left ventricular cavity size, wall thickness and systolic function. Normal left ventricular systolic function. Tissue Doppler/Mitral Doppler indices are consistent with impaired relaxation (Stage I diastolic dysfunction). Normal left ventricular wall thickness. The left ventricular ejection fraction is visually estimated at 65 %. 3.Normal right ventricular size. Normal right ventricular systolic function. 4.The aortic valve is not well visualized. No significant aortic stenosis or insufficiency. 5.Normal appearance of the tricuspid valve. No evidence of tricuspid regurgitation. 6.Normal pericardium with no significant pericardial effusion. Right pleural effusion seen. 7.Normal inferior vena cava appearance. Electronically Signed By: Sergio Leija 07-Dec-2016 12:04:07 -0700 Patient Name: DENNY CHRISTIANSEN Study Date: 06-Dec-2016 [id number]
--- NOTE | 2016-12-07 12:23 | PN ---
Date/Time of Note Date/Time of Note DATE: 12/07/16 TIME: 12:16 Assessment/Plan VTE Prophylaxis VTE Prophylaxis Intervention: LMWH Lines/Catheters IV [facility] Saline Lock Urinary Cath still in place: No Assessment/Plan Chief Complaint/Hosp Course 1. Dementia with superimposed acute encephalopathy. He seems somewhat better today. He was seen by neurology. They agree acute encephalopathy superimposed on dementia. CAT scan of head did not show any acute changes. 2. Right pleural effusion. It seems loculated ,could be secondary to infection. He is on antibiotics. Discussed case with Dr. Nick . He has seen the patient and made recommendations. 3. Peripheral edema ,rule out congestive heart failure , echocardiogram is pending. Cardiology has seen patient and will follow. The patient does have an elevated BNP. Venous Dopplers of both legs were ordered to rule out DVT. 4. Debility. 5. Will advance diet as tolerated. 6. Discussed above with . She tells me that on there advanced directives they have stipulated that they do not want heroic measures in the event that they has a catastrophic event. She agrees with having a DNR status which I will order. Problems: Subjective 24 Hr Interval Summary Free Text/Dictation He is more alert today; however, he is confused. He is confabulating. His is in the room with him. He denies pain. Respiratory: no complaints Cardiovascular: no complaints Gastrointestinal: no complaints Genitourinary: no complaints Musculoskeletal: no complaints Exam/Review of Systems Vital Signs Vitals Vital Signs Date Time Temp Pulse Resp B/P Pulse Ox O2 Delivery O2 Flow Rate FiO2 12/07/16 07:47 2.0 12/07/16 07:22 98.6 95 22 114/57 92 12/05/16 15:28 Nasal Cannula Intake and Output 12/06/16 12/06/16 12/07/16 15:00 23:00 07:00 Intake Total 700 ml 30 ml Balance 700 ml 30 ml Exam Constitutional: frail Psych: confusion Neck: supple Respiratory: diminished breath sounds Cardiovascular: edema, regular rate and rhythm Gastrointestinal: non-tender, soft Extremities: edema Results Result Diagram: 12/07/16 1052 12/07/16 1052 Results 24 hrs Laboratory Tests Test 12/07/16 10:52 White Blood Count 20.1 #H Red Blood Count 4.19 L Hemoglobin 12.6 L Hematocrit 38.9 L Mean Corpuscular Volume 92.8 Mean Corpuscular Hemoglobin 30.1 Mean Corpuscular Hemoglobin Concent 32.4 Red Cell Distribution Width 12.4 Platelet Count 578 H Mean Platelet Volume 8.4 Neutrophils % 90.7 H Lymphocytes % 4.5 L Monocytes % 4.0 Eosinophils % 0.1 Basophils % 0.1 Nucleated Red Blood Cells % 0.0 Neutrophils # 18.2 H Lymphocytes # 0.9 Monocytes # 0.8 Eosinophils # 0.0 Basophils # 0.0 Nucleated Red Blood Cells # 0.0 Sodium Level 147 H Potassium Level 4.1 Chloride Level 100 Carbon Dioxide Level 31 Anion Gap 20 H Blood Urea Nitrogen 16 Creatinine 0.99 Glucose Level 95 Calcium Level 8.4 Phosphorus Level 3.2 Magnesium Level 2.3 Total Bilirubin 0.6 Direct Bilirubin 0.00 Indirect Bilirubin 0.6 Aspartate Amino Transf (AST/SGOT) 31 Alanine Aminotransferase (ALT/SGPT) 25 Alkaline Phosphatase 125 H Total Protein 7.2 Albumin 3.3 Globulin 3.90 H Albumin/Globulin Ratio 0.84 Medications Medications Current Medications Enoxaparin Sodium (Lovenox) 40 mg DAILY SC Last administered on 12/07/16 09:03 ; Admin Dose 40 MG; Start 12/06/16 at 09:00 Acetaminophen (Tylenol Liquid) 650 mg Q4H PRN PO PAIN AND OR ELEVATED TEMP Last administered on 12/06/16 22:22; Admin Dose 650 MG; Start 12/05/16 at 18:00 Ondansetron HCl 4 mg 4 mg Q4H PRN IV NAUSEA AND/OR VOMITING; Start 12/05/16 at 18:00 Vancomycin HCl 250 ml @ 125 mls/hr Q24H IVPB Last administered on 12/07/16 11: 41; Admin Dose 125 MLS/HR; Start 12/06/16 at 11:00 Meropenem/Sodium Chloride (Merrem 1 Gm/50 ml (Pmx)) 50 ml @ 100 mls/hr Q12 IVPB Last administered on 12/07/16 09:01; Admin Dose 100 MLS/HR; Start 12/06/16 at 21:00 Quetiapine Fumarate (Seroquel) 12.5 mg BID PO Last administered on 12/07/16 09: 02; Admin Dose 12.5 MG; Start 12/07/16 at 09:00 CAYDEN LAI MD Dec 07, 2016 12:23
--- NOTE | 2016-12-07 13:33 | CONS ---
Date/Time of Note Date/Time of Note DATE: 12/07/16 TIME: 13:28 Assessment/Plan Assessment/Plan Chief Complaint/Hosp Course 1-right pleural effusion. This is a new finding compared to previous chest x- ray from [place] 2 months ago. Given elevated white count and loculation suspect infectious etiology. Given unilateral effusion less likely cardiac. does have elevated bnp, but normal lvef on echo. could have some degree of diastolic hf, but still favor primary etiology of infection as more likely source. agree with swallow eval as well 2. Chest pain. Sounds pleuritic in nature. Likely related to ongoing pulmonary process. no wma on echo. flat trop essentially. 3. Edema- pitting ble, much improved with elevation, diuretic. as above, may have mild diastolic hf. which could explain edema. cont prn diuretic. no e/o of dvt on u/s. 4. Chills and leukocytosis also at the right-effusion possible infection on antibiotics.consider diagnostic/therapeutic thoracentesis 5. Dementia-patient is alert I will confused. Previous workup negative at [facility] Problems: Consultation Date/Type/Reason Admit Date/Time Dec 06, 2016 at 10:07 Initial Consult Date 12/06/16 Type of Consultation: card Referring Provider: CAYDEN LAI MD 24 HR Interval Summary Free Text/Dictation pt seen, additional hx obtained from family at bedside. remains confused, eyes closed. answers some questions. pt ate some lunch per family. no report of aspiration. no cp. swelling improved. incont of urine Detailed Summary Respiratory: no complaints Cardiovascular: no complaints Gastrointestinal: no complaints Exam/Review of Systems Vital Signs Vitals Vital Signs Date Time Temp Pulse Resp B/P Pulse Ox O2 Delivery O2 Flow Rate FiO2 12/07/16 07:47 2.0 12/07/16 07:22 98.6 95 22 114/57 92 12/05/16 15:28 Nasal Cannula Intake and Output 12/06/16 12/06/16 12/07/16 15:00 23:00 07:00 Intake Total 700 ml 30 ml Balance 700 ml 30 ml Exam Constitutional: alert, other (speaks in very soft voice), No oriented Psych: nl mood/affect, no complaints Head: atraumatic, normocephalic Eyes: EOMI, nl conjunctiva, nl lids ENMT: nl nasal mucosa & septum Neck: non-tender, supple, No jvd Respiratory: other (decreased bs R base) Cardiovascular: edema (2+ pitting in ankles ble), other (rrr, nl s1s2, ii/vi llsb) Gastrointestinal: non-tender, soft Musculoskeletal: nl extremities to inspection, other Extremities: normal pulses Neurological: CELL PREPARER II-XII intact Skin: nl turgor, No rash or lesions Results Result Diagram: 12/07/16 1052 12/07/16 1052 Results 24 hrs Laboratory Tests Test 12/07/16 10:52 White Blood Count 20.1 #H Red Blood Count 4.19 L Hemoglobin 12.6 L Hematocrit 38.9 L Mean Corpuscular Volume 92.8 Mean Corpuscular Hemoglobin 30.1 Mean Corpuscular Hemoglobin Concent 32.4 Red Cell Distribution Width 12.4 Platelet Count 578 H Mean Platelet Volume 8.4 Neutrophils % 90.7 H Lymphocytes % 4.5 L Monocytes % 4.0 Eosinophils % 0.1 Basophils % 0.1 Nucleated Red Blood Cells % 0.0 Neutrophils # 18.2 H Lymphocytes # 0.9 Monocytes # 0.8 Eosinophils # 0.0 Basophils # 0.0 Nucleated Red Blood Cells # 0.0 Sodium Level 147 H Potassium Level 4.1 Chloride Level 100 Carbon Dioxide Level 31 Anion Gap 20 H Blood Urea Nitrogen 16 Creatinine 0.99 Glucose Level 95 Calcium Level 8.4 Phosphorus Level 3.2 Magnesium Level 2.3 Total Bilirubin 0.6 Direct Bilirubin 0.00 Indirect Bilirubin 0.6 Aspartate Amino Transf (AST/SGOT) 31 Alanine Aminotransferase (ALT/SGPT) 25 Alkaline Phosphatase 125 H Total Protein 7.2 Albumin 3.3 Globulin 3.90 H Albumin/Globulin Ratio 0.84 Medications Medications Current Medications Enoxaparin Sodium (Lovenox) 40 mg DAILY SC Last administered on 12/07/16 09:03 ; Admin Dose 40 MG; Start 12/06/16 at 09:00 Acetaminophen (Tylenol Liquid) 650 mg Q4H PRN PO PAIN AND OR ELEVATED TEMP Last administered on 12/06/16 22:22; Admin Dose 650 MG; Start 12/05/16 at 18:00 Ondansetron HCl 4 mg 4 mg Q4H PRN IV NAUSEA AND/OR VOMITING; Start 12/05/16 at 18:00 Vancomycin HCl 250 ml @ 125 mls/hr Q24H IVPB Last administered on 12/07/16 11: 41; Admin Dose 125 MLS/HR; Start 12/06/16 at 11:00 Meropenem/Sodium Chloride (Merrem 1 Gm/50 ml (Pmx)) 50 ml @ 100 mls/hr Q12 IVPB Last administered on 12/07/16 09:01; Admin Dose 100 MLS/HR; Start 12/06/16 at 21:00 Quetiapine Fumarate (Seroquel) 12.5 mg BID PO Last administered on 12/07/16 09: 02; Admin Dose 12.5 MG; Start 12/07/16 at 09:00 Procedures Procedures venous u/s images reviewed, no dvt SEEMA ROBB Dec 07, 2016 13:33
[2016-12-07 14:00] VITALS: BP 95/53; RESP 21
--- NOTE | 2016-12-07 16:05 | CONS ---
Date/Time of Note Date/Time of Note DATE: 12/07/16 TIME: 16:01 Consult Date/Type/Reason Admit Date/Time Dec 06, 2016 at 10:07 Initial Consult Date 12/06/16 Type of Consultation: Pulm Ordering Provider: CAYDEN LAI MD Subjective Still quite somnolent and confused. Objective Vital Signs Date Time Temp Pulse Resp B/P Pulse Ox O2 Delivery O2 Flow Rate FiO2 12/07/16 14:00 98.8 88 21 95/53 93 12/07/16 07:47 2.0 12/05/16 15:28 Nasal Cannula Intake and Output 12/06/16 12/06/16 12/07/16 15:00 23:00 07:00 Intake Total 700 ml 30 ml Balance 700 ml 30 ml Exam HEENT: Neck supple; no JVD; no LAD CVS: RRR, S1 and S2 CHEST: Coarse BS R>L ABD: Soft, NT, + BS EXT: No c/c/e Results/Medications Result Diagram: 12/07/16 1052 12/07/16 1052 Results 24 hrs Laboratory Tests Test 12/07/16 10:52 White Blood Count 20.1 #H Red Blood Count 4.19 L Hemoglobin 12.6 L Hematocrit 38.9 L Mean Corpuscular Volume 92.8 Mean Corpuscular Hemoglobin 30.1 Mean Corpuscular Hemoglobin Concent 32.4 Red Cell Distribution Width 12.4 Platelet Count 578 H Mean Platelet Volume 8.4 Neutrophils % 90.7 H Lymphocytes % 4.5 L Monocytes % 4.0 Eosinophils % 0.1 Basophils % 0.1 Nucleated Red Blood Cells % 0.0 Neutrophils # 18.2 H Lymphocytes # 0.9 Monocytes # 0.8 Eosinophils # 0.0 Basophils # 0.0 Nucleated Red Blood Cells # 0.0 Sodium Level 147 H Potassium Level 4.1 Chloride Level 100 Carbon Dioxide Level 31 Anion Gap 20 H Blood Urea Nitrogen 16 Creatinine 0.99 Glucose Level 95 Calcium Level 8.4 Phosphorus Level 3.2 Magnesium Level 2.3 Total Bilirubin 0.6 Direct Bilirubin 0.00 Indirect Bilirubin 0.6 Aspartate Amino Transf (AST/SGOT) 31 Alanine Aminotransferase (ALT/SGPT) 25 Alkaline Phosphatase 125 H Total Protein 7.2 Albumin 3.3 Globulin 3.90 H Albumin/Globulin Ratio 0.84 Medications Current Medications Enoxaparin Sodium (Lovenox) 40 mg DAILY SC Last administered on 12/07/16 09:03 ; Admin Dose 40 MG; Start 12/06/16 at 09:00 Acetaminophen (Tylenol Liquid) 650 mg Q4H PRN PO PAIN AND OR ELEVATED TEMP Last administered on 12/06/16 22:22; Admin Dose 650 MG; Start 12/05/16 at 18:00 Ondansetron HCl 4 mg 4 mg Q4H PRN IV NAUSEA AND/OR VOMITING; Start 12/05/16 at 18:00 Vancomycin HCl 250 ml @ 125 mls/hr Q24H IVPB Last administered on 12/07/16 11: 41; Admin Dose 125 MLS/HR; Start 12/06/16 at 11:00 Meropenem/Sodium Chloride (Merrem 1 Gm/50 ml (Pmx)) 50 ml @ 100 mls/hr Q12 IVPB Last administered on 12/07/16 09:01; Admin Dose 100 MLS/HR; Start 12/06/16 at 21:00 Quetiapine Fumarate (Seroquel) 12.5 mg BID PO Last administered on 12/07/16 09: 02; Admin Dose 12.5 MG; Start 12/07/16 at 09:00 Miscellaneous Information (*Rx Drug Level Order Reminder*) VANCO TROUGH @ 1, 000 ON... ONCE ONCE XX ; Start 12/08/16 at 10:00; Stop 12/08/16 at 10:01 Assessment/Plan Chief Complaint/Hosp Course Briefly, this is an 86-year-old man with a history of rapidly progressive dementia s/p recent hospitalization at [facility], followed by transfer to a rehab facility, who presents with some cough, chills, and leukocytosis--noted to have a multiloculated right pleural effusion. He is very sleepy now and not able to follow commands. Problems: Additional Assessment/Plan IMP: 1. Multi-loculated small right pleural effusion with associated RLL pneumonia-- likely represents an complicated parapneumonic effusion/empyema. Concern for chronic aspiration. Unfortunately, the size of the effusion will make it a bit challenging for IR to perform U/S guided thoracentesis. RECS: 1. Still awaiting CT chest non-contrast to better evaluate the mid to upper lung zones not seen on CT abdomen. 2. CT-guided diagnostic thoracentesis, if possible by IR 3. Continue broad-spectrum abx 4. Suggest video swallow eval once more alert LINDA BARNES MD Dec 07, 2016 16:05
[2016-12-07 19:40] VITALS: BP 106/60; RESP 16
[2016-12-08 02:00] VITALS: BP 92/58; PULSE 88; RESP 20
[2016-12-08] MEDS: ACETAMINOPHEN 650MG/20.3ML CUP PO PRN (02:05)
[2016-12-08 06:17] VITALS: BP 103/64; PULSE 78; RESP 20
[2016-12-08] MEDS: FUROSEMIDE 40 MG INJ IV SCH (06:25)
[2016-12-08 07:30] VITALS: BP 104/60; RESP 20
[2016-12-08] MEDS: ENOXAPARIN 40 MG/0.4 ML SYG SC SCH (09:00)
[2016-12-08] MEDS: QUETIAPINE 25 MG TAB PO SCH ×2 (10:24→22:11)
[2016-12-08] MEDS: MEROPENEM 1 GM/50ML(PMX) 50 ML IVPB SCH ×2 (10:24→22:11)
[2016-12-08] MEDS: VANCOMYCIN 1 GM in NS 250 ML IVPB SCH (11:35)
--- NOTE | 2016-12-08 11:59 | PN ---
Date/Time of Note Date/Time of Note DATE: 12/08/16 TIME: 11:52 Assessment/Plan VTE Prophylaxis VTE Prophylaxis Intervention: LMWH Lines/Catheters IV [facility]ter Type (from [facility] Saline Lock Urinary Cath still in place: No Assessment/Plan Chief Complaint/Hosp Course 1. Dementia with superimposed acute encephalopathy. He is better today. He was seen by neurology. They agree acute encephalopathy superimposed on dementia. CAT scan of head did not show any acute changes. He is less confused and more oriented . 2. Right pleural effusion. It seems loculated ,could be secondary to infection. He is on antibiotics. Discussed case with Dr. Nick . Patient is scheduled to have a CT of chest today 3. Peripheral edema , he has a normal EF on echocardiogram and negative venous dopplers . Edema has improved and I will decrease diuretics . 4. Debility. Will start PT . 5. Will advance diet as tolerated. 6. Discussed above with . She tells me that on there advanced directives they have stipulated that they do not want heroic measures in the event that they has a catastrophic event. She agrees with having a DNR status which I will order. Problems: Subjective 24 Hr Interval Summary Free Text/Dictation He is more alert and less disoriented and less confused . Constitutional: no complaints Respiratory: no complaints Cardiovascular: no complaints Gastrointestinal: no complaints Genitourinary: no complaints Exam/Review of Systems Vital Signs Vitals Vital Signs Date Time Temp Pulse Resp B/P Pulse Ox O2 Delivery O2 Flow Rate FiO2 12/08/16 11:18 2.0 12/08/16 07:30 98.2 78 20 104/60 95 12/08/16 06:17 Nasal Cannula Intake and Output 12/07/16 12/07/16 12/08/16 15:00 23:00 07:00 Intake Total 300 ml 240 ml 240 ml Output Total 200 ml 200 ml Balance 300 ml 40 ml 40 ml Exam Constitutional: alert, frail Psych: confusion Head: normocephalic Respiratory: diminished breath sounds Cardiovascular: regular rate and rhythm Gastrointestinal: non-tender, soft Musculoskeletal: nl extremities to inspection Results Result Diagram: 12/07/16 1052 12/07/16 1052 Results 24 hrs Laboratory Tests Test 12/08/16 10:29 Vancomycin Level Trough 10.1 Medications Medications Current Medications Enoxaparin Sodium (Lovenox) 40 mg DAILY SC Last administered on 12/07/16 09:03 ; Admin Dose 40 MG; Start 12/06/16 at 09:00 Acetaminophen (Tylenol Liquid) 650 mg Q4H PRN PO PAIN AND OR ELEVATED TEMP Last administered on 12/08/16 02:05; Admin Dose 650 MG; Start 12/05/16 at 18:00 Ondansetron HCl 4 mg 4 mg Q4H PRN IV NAUSEA AND/OR VOMITING; Start 12/05/16 at 18:00 Vancomycin HCl 250 ml @ 125 mls/hr Q24H IVPB Last administered on 12/08/16 11: 35; Admin Dose 125 MLS/HR; Start 12/06/16 at 11:00 Meropenem/Sodium Chloride (Merrem 1 Gm/50 ml (Pmx)) 50 ml @ 100 mls/hr Q12 IVPB Last administered on 12/08/16 10:24; Admin Dose 100 MLS/HR; Start 12/06/16 at 21:00 Quetiapine Fumarate (Seroquel) 12.5 mg BID PO Last administered on 12/08/16 10: 24; Admin Dose 12.5 MG; Start 12/07/16 at 09:00 CAYDEN LAI MD Dec 08, 2016 11:59
--- NOTE | 2016-12-08 15:53 | CONS ---
Date/Time of Note Date/Time of Note DATE: 12/08/16 TIME: 15:51 Consult Date/Type/Reason Admit Date/Time Dec 06, 2016 at 10:07 Initial Consult Date 12/06/16 Type of Consultation: Pulm Ordering Provider: CAYDEN LAI MD Subjective Patient little better this afternoon. Objective Vital Signs Date Time Temp Pulse Resp B/P Pulse Ox O2 Delivery O2 Flow Rate FiO2 12/08/16 11:18 2.0 12/08/16 07:30 98.2 78 20 104/60 95 12/08/16 06:17 Nasal Cannula Intake and Output 12/07/16 12/07/16 12/08/16 15:00 23:00 07:00 Intake Total 300 ml 240 ml 240 ml Output Total 200 ml 200 ml Balance 300 ml 40 ml 40 ml Exam GENERAL: Frail elderly gentleman VITAL SIGNS: per chart NECK: Supple. No JVD or lymphadenopathy. CARDIAC EXAM: S1, S2. No added sounds or murmurs. CHEST: Diminished air entry right base ABDOMEN: Soft, nontender. No guarding or rebound. EXTREMITIES: No cyanosis, clubbing or edema. NEUROLOGIC: Generalized weakness. No focal deficits. Results/Medications Result Diagram: 12/07/16 1052 12/07/16 1052 Results 24 hrs Laboratory Tests Test 12/08/16 10:29 Vancomycin Level Trough 10.1 Medications Current Medications Enoxaparin Sodium (Lovenox) 40 mg DAILY SC Last administered on 12/07/16 09:03 ; Admin Dose 40 MG; Start 12/06/16 at 09:00 Acetaminophen (Tylenol Liquid) 650 mg Q4H PRN PO PAIN AND OR ELEVATED TEMP Last administered on 12/08/16 02:05; Admin Dose 650 MG; Start 12/05/16 at 18:00 Ondansetron HCl 4 mg 4 mg Q4H PRN IV NAUSEA AND/OR VOMITING; Start 12/05/16 at 18:00 Vancomycin HCl 250 ml @ 125 mls/hr Q24H IVPB Last administered on 12/08/16 11: 35; Admin Dose 125 MLS/HR; Start 12/06/16 at 11:00; Stop 12/08/16 at 16:00 Meropenem/Sodium Chloride (Merrem 1 Gm/50 ml (Pmx)) 50 ml @ 100 mls/hr Q12 IVPB Last administered on 12/08/16 10:24; Admin Dose 100 MLS/HR; Start 12/06/16 at 21:00 Quetiapine Fumarate 12.5 mg 12.5 mg BID PO Last administered on 12/08/16 10:24 ; Admin Dose 12.5 MG; Start 12/07/16 at 09:00 Vancomycin HCl/ Sodium Chloride (Vancocin/NS) 250 ml @ 83.333 mls/ hr Q24H IVPB ; Start 12/09/16 at 11:00 Furosemide (Lasix) 40 mg DAILY PO ; Start 12/09/16 at 09:00 Assessment/Plan Chief Complaint/Hosp Course Assessment 1. Hypoxemic respiratory failure 2. Loculated right pleural effusion 3. Possible chronic aspiration 4. Leukocytosis secondary to above Plan 1. Continue current antibiotics 2. Ultrasound-guided thoracentesis case was discussed with radiology. Given that pleural effusion is loculated he may end up requiring chest tube placement. Patient is a poor surgical candidate for video-assisted thorascopic surgery. Problems: RACHID ALAN MD, [facility] Dec 08, 2016 15:53
--- NOTE | 2016-12-08 17:52 | RADRPT ---
PROCEDURE: CT Chest without contrast. CLINICAL INDICATION: Loculated pleural effusion. TECHNIQUE: Multiple contiguous helical CT images of the chest were obtained without the administra tion of intravenous contrast. Coronal and sagittal reformatted images were obtained from the source images. CTDIvol (mGy): 8.07; Total Exam DLP (mGy-cm): 326.02. One or more of the following dose reduction techniques were utilized: - Automated exposure control. - Adjustment of the mA and/or kV according to patient size. - Use of iterative reconstruction technique. COMPARISON: Chest x-ray 12/05/2016. FINDINGS: Limited imaging of the lower neck is unremarkable. The heart is mildly enlarged. There is no pericardial effusion. There is no bulky mediastinal, hil ar or axillary lymphadenopathy. Multiple small mediastinal lymph nodes are present. The thoracic aor ta is normal in caliber with atherosclerotic calcification. Tortuosity of the thoracic aorta is obse rved. The pulmonary arteries are not enlarged. There is a moderate large right pleural effusion which demonstrates a lobular contour suggesting loc ulation. A focal collection of pleural fluid is seen within the minor fissure corresponding to the o pacity on earlier x-ray. Trace left pleural fluid is observed. Scattered reticular consolidation is seen within the bilateral lung bases and likely a result of atelectasis. There is a small calcification within the right upper quadrant which may reflect a calcified lymph n ode or gallstone. Mild degenerative changes of the thoracic spine are present. Chest wall soft tissues are unremarkab le. IMPRESSION: Moderate large loculated right pleural effusion. Trace left pleural effusion. Scattered reticular consolidation throughout the lung bases, likely a result of atelectasis. RPTAT: [facility] .Susana Myers MD, MD Date Time Electronically viewed and signed by .Susana Myers MD, MD on 12/08/2016 17:51 .T/
[2016-12-08 20:24] VITALS: BP 110/59; RESP 16
[2016-12-09 02:33] VITALS: BP 109/68; RESP 16
[2016-12-09 06:34] LABS: BASOPHILS % 0.2 % (0.0-2.0); EOSINOPHILS # 0.2 10^3/ul (0.0-0.5); HEMATOCRIT 35.8 % (42.0-52.0); HEMOGLOBIN 11.4 g/dl (14.0-18.0); LYMPHOCYTES # 1.9 10^3/ul (0.8-2.9); LYMPHOCYTES % 12.2 % (15.0-51.0); MEAN CORPUSCULAR HEMOGLOBIN 29.4 pg (29.0-33.0); MEAN CORPUSCULAR HGB CONC 31.8 g/dl (32.0-37.0); MEAN CORPUSCULAR VOLUME 92.3 fl (82.0-101.0); MEAN PLATELET VOLUME 8.7 fl (7.4-10.4); MONOCYTES % 6.4 % (0.0-11.0); NEUTROPHIL # 12.1 10^3/ul (1.6-7.5); NEUTROPHILS % 79.5 % (39.0-77.0); PLATELET COUNT 558 10^3/UL (140-415); RED BLOOD COUNT 3.88 10^6/ul (4.70-6.10); RED CELL DISTRIBUTION WIDTH 12.8 % (11.5-14.5); WHITE BLOOD COUNT 15.3 10^3/ul (4.8-10.8)
[2016-12-09 06:59] LABS: ALBUMIN 3.1 g/dl (3.3-4.9); ALBUMIN/GLOBULIN RATIO 0.86; BILIRUBIN,INDIRECT 0.4 mg/dl (0-1.1); BILIRUBIN,TOTAL 0.4 mg/dl (0.2-1.3); CALCIUM 8.1 mg/dl (8.4-10.2); MAGNESIUM 2.6 mg/dl (1.7-2.5); PHOSPHORUS 2.8 mg/dl (2.5-4.9); POTASSIUM 3.8 mmol/L (3.5-5.1); TOTAL PROTEIN 6.7 g/dl (6.1-8.1)
[2016-12-09 07:17] LABS: CREATININE 0.97 mg/dl (0.61-1.24)
[2016-12-09 07:50] VITALS: BP 111/62; RESP 20
[2016-12-09] MEDS: MEROPENEM 1 GM/50ML(PMX) 50 ML IVPB SCH ×3 (08:41→22:20)
[2016-12-09] MEDS: QUETIAPINE 25 MG TAB PO SCH ×2 (08:42→20:36)
[2016-12-09] MEDS ORDERED: FUROSEMIDE 40 MG TAB PO SCH (09:00)
--- NOTE | 2016-12-09 09:17 | RADRPT ---
PROCEDURE: XR Chest 1 view. CLINICAL INDICATION: Shortness of breath. TECHNIQUE: AP views of the chest were obtained. COMPARISON: CT December 08, 2016 FINDINGS: The heart is large. Calcified atherosclerosis is noted in the aorta. Patchy infiltrates throughout the right lung, combined with moderate pleural effusion are stable. Left lower lobe infiltrates zackary ear unchanged. The lungs are hyperexpanded. The osseous structures are osteopenic, but appear shreyas sly intact. IMPRESSION: Cardiomegaly with calcified atherosclerosis in the aorta. Stable patchy infiltrates throughout the right lung, combined with moderate pleural effusion. Stable left lower lobe infiltrates. Hyperexpanded lungs. RPTAT: AA .Huy Rm MD, MD Date Time Electronically viewed and signed by .Huy Rm MD, on 12/09/2016 09:17 .P/
--- NOTE | 2016-12-09 09:43 | PN ---
Date/Time of Note Date/Time of Note DATE: 12/09/16 TIME: 09:35 Assessment/Plan VTE Prophylaxis VTE Prophylaxis Intervention: LMWH Lines/Catheters IV [facility]from [facility] Saline Lock Urinary Cath still in place: No Assessment/Plan Chief Complaint/Hosp Course 1. Dementia with superimposed acute encephalopathy. He is still confused . He was seen by neurology. They agree acute encephalopathy superimposed on dementia. CAT scan of head did not show any acute changes. He is still confused . 2. Right pleural effusion. R pneumonia ,It seems loculated ,could be secondary to infection. He is on antibiotics and is afebrile . Patient had a CT of chest yesterday , which showed a R loculated effusion . He is scheduled for a thoracentesis today . 3. Peripheral edema , he has a normal EF on echocardiogram and negative venous dopplers . Edema has improved and I will decrease diuretics . 4. Debility. Will start PT . 5. Will advance diet as tolerated. 6. Discussed above with . She tells me that on there advanced directives they have stipulated that they do not want heroic measures in the event that they has a catastrophic event. She agrees with having a DNR status which I will order. Problems: Subjective 24 Hr Interval Summary Free Text/Dictation He is in bed . He is confused . He is scheduled for a R thoracentesis today . Constitutional: disoriented Exam/Review of Systems Vital Signs Vitals Vital Signs Date Time Temp Pulse Resp B/P Pulse Ox O2 Delivery O2 Flow Rate FiO2 12/09/16 07:50 99.1 87 20 111/62 94 12/08/16 20:00 2.0 12/08/16 06:17 Nasal Cannula Intake and Output 12/08/16 12/08/16 12/09/16 15:00 23:00 07:00 Intake Total 50 ml 700 ml 200 ml Output Total 700 ml 100 ml Balance 50 ml 0 ml 100 ml Exam Psych: confusion Respiratory: diminished breath sounds Cardiovascular: regular rate and rhythm Gastrointestinal: non-tender, soft Musculoskeletal: nl extremities to inspection Neurological: confused Results Result Diagram: 12/09/16 0559 12/09/16 0559 Results 24 hrs Laboratory Tests Test 12/08/16 10:29 12/09/16 05:59 Vancomycin Level Trough 10.1 White Blood Count 15.3 #H Red Blood Count 3.88 L Hemoglobin 11.4 L Hematocrit 35.8 L Mean Corpuscular Volume 92.3 Mean Corpuscular Hemoglobin 29.4 Mean Corpuscular Hemoglobin Concent 31.8 L Red Cell Distribution Width 12.8 Platelet Count 558 H Mean Platelet Volume 8.7 Neutrophils % 79.5 H Lymphocytes % 12.2 L Monocytes % 6.4 Eosinophils % 1.0 Basophils % 0.2 Nucleated Red Blood Cells % 0.0 Neutrophils # 12.1 H Lymphocytes # 1.9 Monocytes # 1.0 H Eosinophils # 0.2 Basophils # 0.0 Nucleated Red Blood Cells # 0.0 Sodium Level 147 H Potassium Level 3.8 Chloride Level 102 Carbon Dioxide Level 34 H Anion Gap 15 Blood Urea Nitrogen 20 Creatinine 0.97 Glucose Level 101 Calcium Level 8.1 L Phosphorus Level 2.8 Magnesium Level 2.6 H Total Bilirubin 0.4 Direct Bilirubin 0.00 Indirect Bilirubin 0.4 Aspartate Amino Transf (AST/SGOT) 33 Alanine Aminotransferase (ALT/SGPT) 28 Alkaline Phosphatase 163 H Total Protein 6.7 Albumin 3.1 L Globulin 3.60 H Albumin/Globulin Ratio 0.86 Medications Medications Current Medications Enoxaparin Sodium (Lovenox) 40 mg DAILY SC Last administered on 12/07/16 09:03 ; Admin Dose 40 MG; Start 12/06/16 at 09:00 Acetaminophen (Tylenol Liquid) 650 mg Q4H PRN PO PAIN AND OR ELEVATED TEMP Last administered on 12/08/16 02:05; Admin Dose 650 MG; Start 12/05/16 at 18:00 Ondansetron HCl 4 mg 4 mg Q4H PRN IV NAUSEA AND/OR VOMITING; Start 12/05/16 at 18:00 Meropenem/Sodium Chloride (Merrem 1 Gm/50 ml (Pmx)) 50 ml @ 100 mls/hr Q12 IVPB Last administered on 12/09/16 08:41; Admin Dose 100 MLS/HR; Start 12/06/16 at 21:00 Quetiapine Fumarate 12.5 mg 12.5 mg BID PO Last administered on 12/09/16 08:42 ; Admin Dose 12.5 MG; Start 12/07/16 at 09:00 Vancomycin HCl/ Sodium Chloride (Vancocin/NS) 250 ml @ 83.333 mls/ hr Q24H IVPB ; Start 12/09/16 at 11:00 Furosemide (Lasix) 40 mg DAILY PO Last administered on 12/09/16t 08:42; Admin Dose 40 MG; Start 12/09/16 at 09:00 CAYDEN LAI MD Dec 09, 2016 09:43
[2016-12-09] MEDS ORDERED: VANCOMYCIN 1.25 GM in SOD CHLORIDE 0.9% 250 ML IVPB SCH (11:00)
--- NOTE | 2016-12-09 11:59 | CONS ---
Date/Time of Note Date/Time of Note DATE: 12/09/16 TIME: 11:47 Assessment/Plan Assessment/Plan Chief Complaint/Hosp Course 1) R sided loculated pleural effusion and likely pneumonia clear CXR back in mid october and neg procalcitonin's continue treatment for possible HCA pneumonia with vanco/merrem pt awaits R sided thorancentesis, if infected will likely need a chest tube unable to get sputum cx will get nasal cx for MRSA increase dose of merrem 2) dementia 3) hx of prostate CA and prostatectomy will order u/a and urine cx Problems: Consultation Date/Type/Reason Admit Date/Time Dec 06, 2016 at 10:07 Date of Consultation: Dec 09, 2016 Type of Consultation: ID Hx of Present Illness pt is mostly unintelligible with his speech but able to follow directions is a fair historian was hospitalized at [facility] in mid october due to fever and AMS LP was neg, neg CXR and neg procalcitonin's and was treated with just levaquin for unspecified infection He went for a doctor's visit and was adviced to be admitted to the hospital He denies F, C, NS, N, V, ORTEZ, sore throat, coryza, cough. his H&P stated he had some abd/chest pain with a cough but he denies this now Constitutional: disoriented Eyes: no complaints ENT: no complaints Respiratory: no complaints Cardiovascular: no complaints Gastrointestinal: no complaints Genitourinary: no complaints Musculoskeletal: no complaints Skin: no complaints Neurologic: confusion Psychological: confusion Past Medical History prostate CA, mitral valve prolapse, dementia Past Surgical History prostatectomy, R knee ACL repair Social History Alcohol Use: none Smoking Status: Never smoker Drug Use: none Exam/Review of Systems Vital Signs Vitals Vital Signs Date Time Temp Pulse Resp B/P Pulse Ox O2 Delivery O2 Flow Rate FiO2 12/09/16 10:22 2.0 12/09/16 07:50 99.1 87 20 111/62 94 12/08/16 06:17 Nasal Cannula Intake and Output 12/08/16 12/08/16 12/09/16 15:00 23:00 07:00 Intake Total 50 ml 700 ml 200 ml Output Total 700 ml 100 ml Balance 50 ml 0 ml 100 ml Exam Constitutional: alert, other (pt is soft spoken and unable to fully understand what he is saying but follows directions well) Head: normocephalic Respiratory: other (decreased BS at bases) Cardiovascular: regular rate and rhythm Gastrointestinal: non-tender, soft Extremities: other (no swelling) Results Result Diagram: 12/09/1659 12/09/16 0559 Results 24 hrs Laboratory Tests Test 12/09/16 05:59 White Blood Count 15.3 #H Red Blood Count 3.88 L Hemoglobin 11.4 L Hematocrit 35.8 L Mean Corpuscular Volume 92.3 Mean Corpuscular Hemoglobin 29.4 Mean Corpuscular Hemoglobin Concent 31.8 L Red Cell Distribution Width 12.8 Platelet Count 558 H Mean Platelet Volume 8.7 Neutrophils % 79.5 H Lymphocytes % 12.2 L Monocytes % 6.4 Eosinophils % 1.0 Basophils % 0.2 Nucleated Red Blood Cells % 0.0 Neutrophils # 12.1 H Lymphocytes # 1.9 Monocytes # 1.0 H Eosinophils # 0.2 Basophils # 0.0 Nucleated Red Blood Cells # 0.0 Sodium Level 147 H Potassium Level 3.8 Chloride Level 102 Carbon Dioxide Level 34 H Anion Gap 15 Blood Urea Nitrogen 20 Creatinine 0.97 Glucose Level 101 Calcium Level 8.1 L Phosphorus Level 2.8 Magnesium Level 2.6 H Total Bilirubin 0.4 Direct Bilirubin 0.00 Indirect Bilirubin 0.4 Aspartate Amino Transf (AST/SGOT) 33 Alanine Aminotransferase (ALT/SGPT) 28 Alkaline Phosphatase 163 H Total Protein 6.7 Albumin 3.1 L Globulin 3.60 H Albumin/Globulin Ratio 0.86 Medications Medications Current Medications Enoxaparin Sodium (Lovenox) 40 mg DAILY SC Last administered on 12/07/16 09:03 ; Admin Dose 40 MG; Start 12/06/16 at 09:00 Acetaminophen (Tylenol Liquid) 650 mg Q4H PRN PO PAIN AND OR ELEVATED TEMP Last administered on 12/08/16 02:05; Admin Dose 650 MG; Start 12/05/16 at 18:00 Ondansetron HCl 4 mg 4 mg Q4H PRN IV NAUSEA AND/OR VOMITING; Start 12/05/16 at 18:00 Meropenem/Sodium Chloride (Merrem 1 Gm/50 ml (Pmx)) 50 ml @ 100 mls/hr Q12 IVPB Last administered on 12/09/16 08:41; Admin Dose 100 MLS/HR; Start 12/06/16 at 21:00 Quetiapine Fumarate 12.5 mg 12.5 mg BID PO Last administered on 12/09/16t 08:42 ; Admin Dose 12.5 MG; Start 12/07/16 at 09:00 Vancomycin HCl/ Sodium Chloride (Vancocin/NS) 250 ml @ 83.333 mls/ hr Q24H IVPB ; Start 12/09/16 at 11:00 MAHENDRA VILLALOBOS MD Dec 09, 2016 11:57
[2016-12-09] MEDS ORDERED: LIDOCAINE 1% (MPF) 5 ML VIAL ONE (12:37)
--- NOTE | 2016-12-09 13:14 | RADRPT ---
PROCEDURE: Chest radiograph CLINICAL INDICATION: POST RIGHT THORACENTESIS (IN ULTRASOUND). TECHNIQUE: Single portable frontal view. COMPARISON: Radiograph performed approximately 4 hours earlier. FINDINGS: Loculated right pleural effusion, extending to the minor fissure, has slightly increased size last 4 hours. Subsegmental atelectasis at the left lung base. Right apical pleural scar. No pneumothorax. The cardiomediastinal silhouette is normal. No suspicious bone lesion. IMPRESSION: Loculated pleural effusion on the right has slightly increased in size and loss 4 hours. RPTAT: PP Physician Mecredez Date Time Electronically viewed and signed by Physician Mercedez on 12/09/2016 13:13 /
[2016-12-09] MEDS ORDERED: BARIUM SULFATE 135 ML (E-Z HD) PO ONE (13:21)
[2016-12-09 13:36] LABS: FLD MN% 44.2 %; FLD PMN% 55.8 %; FLD RBC 17 /uL; FLD WBC 443 /cmm
[2016-12-09 13:46] LABS: FLUID TOTAL PROTEIN 4.2 g/dl
[2016-12-09 13:47] LABS: FLUID GLUCOSE 96 mg/dl; FLUID TYPE THORACENTESIS FLUID
[2016-12-09 13:57] LABS: FLUID TYPE THORACENTESIS FLUID
--- NOTE | 2016-12-09 14:27 | RADRPT ---
PROCEDURE: US guided right thoracentesis. CLINICAL INDICATION: Shortness of breath. Right pleural effusion. TECHNIQUE: Prior to the procedure, informed consent was obtained. The risks, benefits, and alternatives were e xplained to the patient or the patient's family, including but not limited to bleeding, infection, p ain, visceral or vascular damage, shock, pneumothorax, chest tube placement, air embolism, and . The patient or the patient's family understood the risks and the alternatives and wished to proce ed with the study. Informed written consent was obtained. A procedural pause was performed. The patient's name, date of , and procedure to be performed were verified. Ultrasound of the right hemithorax was performed in the axial and sagittal planes. A right pleural e ffusion is noted. Utilizing ultrasound guidance, optimal location for entry to the pleural cavity wa s ascertained. The overlying skin was prepped and draped in the usual sterile fashion. Approximate ly 10 ml of 1% Xylocaine was injected locally for pain control. Using ultrasound guidance, a 5-Fren Yueh catheter was introduced into the right pleural space without difficulty. Fluid was aspirated . COMPARISON: None. FINDINGS: Initial ultrasound demonstrates fluid in the right pleural space. Approximately 0.450liters of sero us fluid was aspirated and sent to the laboratory. IMPRESSION: 1. Satisfactory ultrasound-guided right thoracentesis. RPTAT: QQ .Earle Varner MD, Date Time Electronically viewed and signed by .Earle Varner MD, on 12/09/2016 14:27 .R/
[2016-12-09 14:35] VITALS: BP 109/63; RESP 18
[2016-12-09 15:27] LABS: FLD TYPE THORACENTHESIS
[2016-12-09 15:28] LABS: FLD CLARITY CLOUDY; FLD COLOR OTHER
[2016-12-09] MEDS: ENOXAPARIN 40 MG/0.4 ML SYG SC SCH (15:28)
--- NOTE | 2016-12-09 15:53 | CONS ---
Date/Time of Note Date/Time of Note DATE: 12/09/16 TIME: 15:51 Consult Date/Type/Reason Admit Date/Time Dec 06, 2016 at 10:07 Initial Consult Date 12/06/16 Type of Consultation: Pulmonary Ordering Provider: CAYDEN LAI MD Subjective Patient status post thoracentesis. 0.45 L removed right lung. Repeat chest x- ray shows loculated effusion. Objective Vital Signs Date Time Temp Pulse Resp B/P Pulse Ox O2 Delivery O2 Flow Rate FiO2 12/09/16 14:35 98.6 98 18 109/63 92 12/09/16 10:22 2.0 12/08/16 06:17 Nasal Cannula Intake and Output 12/08/16 12/08/16 12/09/16 14:59 22:59 06:59 Intake Total 50 ml 700 ml 200 ml Output Total 700 ml 100 ml Balance 50 ml 0 ml 100 ml Exam GENERAL: Elderly gentleman comfortable at rest no acute distress VITAL SIGNS: per chart NECK: Supple. No JVD or lymphadenopathy. CARDIAC EXAM: S1, S2. No added sounds or murmurs. CHEST: Diminished air entry both bases few rales ABDOMEN: Soft, nontender. No guarding or rebound. EXTREMITIES: No cyanosis, clubbing or edema. NEUROLOGIC: Generalized weakness. No focal deficits. Results/Medications Result Diagram: 12/09/16 0559 12/09/16 0559 Results 24 hrs Laboratory Tests Test 12/09/16 05:59 12/09/16 12:20 White Blood Count 15.3 #H Red Blood Count 3.88 L Hemoglobin 11.4 L Hematocrit 35.8 L Mean Corpuscular Volume 92.3 Mean Corpuscular Hemoglobin 29.4 Mean Corpuscular Hemoglobin Concent 31.8 L Red Cell Distribution Width 12.8 Platelet Count 558 H Mean Platelet Volume 8.7 Neutrophils % 79.5 H Lymphocytes % 12.2 L Monocytes % 6.4 Eosinophils % 1.0 Basophils % 0.2 Nucleated Red Blood Cells % 0.0 Neutrophils # 12.1 H Lymphocytes # 1.9 Monocytes # 1.0 H Eosinophils # 0.2 Basophils # 0.0 Nucleated Red Blood Cells # 0.0 Sodium Level 147 H Potassium Level 3.8 Chloride Level 102 Carbon Dioxide Level 34 H Anion Gap 15 Blood Urea Nitrogen 20 Creatinine 0.97 Glucose Level 101 Calcium Level 8.1 L Phosphorus Level 2.8 Magnesium Level 2.6 H Total Bilirubin 0.4 Direct Bilirubin 0.00 Indirect Bilirubin 0.4 Aspartate Amino Transf (AST/SGOT) 33 Alanine Aminotransferase (ALT/SGPT) 28 Alkaline Phosphatase 163 H Total Protein 6.7 Albumin 3.1 L Globulin 3.60 H Albumin/Globulin Ratio 0.86 Body Fluid Type THORACENTESIS FLUID Body Fluid Volume 450.0 Body Fluid Color OTHER Body Fluid Appearance CLOUDY Body Fluid WBC 443 Body Fluid RBC (Auto) 17 Body Fluid Polynuclear WBCs (%) 55.8 Body Fluid Mononuclear Cells % Auto 44.2 Body Fluid Glucose 96 Body Fluid Total Protein 4.2 Body Fluid Lactate Dehydrogenase Medications Current Medications Enoxaparin Sodium (Lovenox) 40 mg DAILY SC Last administered on 12/09/16 15:28 ; Admin Dose 40 MG; Start 12/06/16 at 09:00 Acetaminophen (Tylenol Liquid) 650 mg Q4H PRN PO PAIN AND OR ELEVATED TEMP Last administered on 12/08/16 02:05; Admin Dose 650 MG; Start 12/05/16 at 18:00 Ondansetron HCl (Zofran Inj) 4 mg Q4H PRN IV NAUSEA AND/OR VOMITING; Start 12/05 at 18:00 Quetiapine Fumarate 12.5 mg 12.5 mg BID PO Last administered on 12/09/16 08:42 ; Admin Dose 12.5 MG; Start 12/07/16 at 09:00 Vancomycin HCl 1.25 gm/Sodium Chloride 250 ml @ 83.333 mls/ hr Q24H IVPB Last administered on 12/09/16 14:59; Admin Dose 83.333 MLS/HR; Start 12/09/16 at 11:00 Meropenem/Sodium Chloride (Merrem 1 Gm/50 ml (Pmx)) 50 ml @ 100 mls/hr Q8 IVPB Last administered on 12/09/16 14:59; Admin Dose 100 MLS/HR; Start 12/09/16 at 14:00 Docusate Sodium (Colace) 100 mg BID PO ; Start 12/09/16 at 21:00 Magnesium Hydroxide (Milk Of Mag) 30 ml DAILY PRN PO for constipation; Start at 14:00 Assessment/Plan Chief Complaint/Hosp Course Assessment 1. Hypoxemic respiratory failure 2. Loculated right pleural effusion, status post thoracentesis 3. Possible chronic aspiration 4. Leukocytosis secondary to above Plan 1. Continue current antibiotics, ID recommendations 2. Await pleural fluid studies 3. Will discuss with radiology may benefit from pigtail catheter. Problems: RACHID ALAN MD, [facility] Dec 09, 2016 15:53
--- NOTE | 2016-12-09 17:16 | RADRPT ---
PROCEDURE: Video-fluoroscopy swallowing study. CLINICAL INDICATION: Dysphagia. TECHNIQUE: Fluoroscopic guided video swallowing study was done in conjunction with the speech ther apist. The study was confined to the oral, pharyngeal, and cervical phases of the swallowing mechani sm. 0.9 minutes of fluoroscopy time was used. 9 series of images were obtained. COMPARISON: No prior study is available for comparison. FINDINGS: Images demonstrate silent aspiration during swallowing. IMPRESSION: 1. Normal study with silent aspiration during swallowing. 2. Please refer to the speech therapist's recommendations for future feedings. RPTAT: QQ .Earle Varner MD, MD Date Time Electronically viewed and signed by .Earle Varner MD, on 12/09/2016 17:16 .R/
[2016-12-09 20:00] VITALS: BP 134/62; RESP 20
[2016-12-09] MEDS: DOCUSATE SODIUM 100 MG CAP PO SCH (20:36)
[2016-12-10 02:00] VITALS: BP 130/59; RESP 19
[2016-12-10 05:35] LABS: BASOPHILS % 0.3 % (0.0-2.0); EOSINOPHILS # 0.1 10^3/ul (0.0-0.5); EOSINOPHILS % 0.8 % (0.0-7.0); HEMATOCRIT 35.7 % (42.0-52.0); HEMOGLOBIN 11.4 g/dl (14.0-18.0); LYMPHOCYTES # 1.5 10^3/ul (0.8-2.9); LYMPHOCYTES % 9.9 % (15.0-51.0); MEAN CORPUSCULAR HEMOGLOBIN 29.4 pg (29.0-33.0); MEAN CORPUSCULAR HGB CONC 31.9 g/dl (32.0-37.0); MEAN PLATELET VOLUME 8.9 fl (7.4-10.4); MONOCYTE # 0.9 10^3/ul (0.3-0.9); MONOCYTES % 5.9 % (0.0-11.0); NEUTROPHIL # 12.8 10^3/ul (1.6-7.5); NEUTROPHILS % 82.3 % (39.0-77.0); PLATELET COUNT 587 10^3/UL (140-415); RED BLOOD COUNT 3.88 10^6/ul (4.70-6.10); RED CELL DISTRIBUTION WIDTH 12.8 % (11.5-14.5); WHITE BLOOD COUNT 15.5 10^3/ul (4.8-10.8)
[2016-12-10] MEDS: MEROPENEM 1 GM/50ML(PMX) 50 ML IVPB SCH ×3 (05:53→21:11)
[2016-12-10 05:58] LABS: CALCIUM 8.1 mg/dl (8.4-10.2); CREATININE 0.93 mg/dl (0.61-1.24); POTASSIUM 3.3 mmol/L (3.5-5.1)
[2016-12-10 08:34] VITALS: BP 111/62; RESP 22
--- NOTE | 2016-12-10 08:34 | CONS ---
Date/Time of Note Date/Time of Note DATE: 12/10/16 TIME: 08:27 Assessment/Plan Assessment/Plan Chief Complaint/Hosp Course 1) R sided loculated pleural effusion and likely pneumonia clear CXR back in mid october and neg procalcitonin's continue treatment for possible HCA pneumonia with vanco/merrem pt awaits R sided thorancentesis, if infected will likely need a chest tube unable to get sputum cx will get nasal cx for MRSA increase dose of merrem 12/10 - thorancentesis performed and not likely empyema but it is exudative and likely parapneumonic effusion continue with vanco/merrem 2) dementia 3) hx of prostate CA and prostatectomy will order u/a and urine cx 12/10 -u/a looks good Problems: Consultation Date/Type/Reason Admit Date/Time Dec 06, 2016 at 10:07 Initial Consult Date 12/09/16 Type of Consultation: ID Referring Provider: CAYDEN LAI MD 24 HR Interval Summary Free Text/Dictation pt looks comfortable still hard to understand when he responds he follows directions no V, D Exam/Review of Systems Vital Signs Vitals Vital Signs Date Time Temp Pulse Resp B/P Pulse Ox O2 Delivery O2 Flow Rate FiO2 12/10/16 02:00 98.7 91 19 130/59 96 12/10/16 01:30 2.0 12/08/16 06:17 Nasal Cannula Intake and Output 12/09/16 12/09/16 12/10/16 15:00 23:00 07:00 Intake Total 100 ml 900 ml 100 ml Balance 100 ml 900 ml 100 ml Exam Constitutional: alert ENMT: mucosa pink and moist Respiratory: other (decredased BS at bases) Cardiovascular: regular rate and rhythm Gastrointestinal: non-tender, soft Results Result Diagram: 12/10/167 12/10/16 0427 Results 24 hrs Laboratory Tests Test 12/09/16 12:20 12/10/16 04:27 Body Fluid Type THORACENTESIS FLUID Body Fluid Volume 450.0 Body Fluid Color OTHER Body Fluid Appearance CLOUDY Body Fluid WBC 443 Body Fluid RBC (Auto) 17 Body Fluid Polynuclear WBCs (%) 55.8 Body Fluid Mononuclear Cells % Auto 44.2 Body Fluid Glucose 96 Body Fluid Total Protein 4.2 Body Fluid Lactate Dehydrogenase White Blood Count 15.5 H Red Blood Count 3.88 L Hemoglobin 11.4 L Hematocrit 35.7 L Mean Corpuscular Volume 92.0 Mean Corpuscular Hemoglobin 29.4 Mean Corpuscular Hemoglobin Concent 31.9 L Red Cell Distribution Width 12.8 Platelet Count 587 H Mean Platelet Volume 8.9 Neutrophils % 82.3 H Lymphocytes % 9.9 L Monocytes % 5.9 Eosinophils % 0.8 Basophils % 0.3 Nucleated Red Blood Cells % 0.0 Neutrophils # 12.8 H Lymphocytes # 1.5 Monocytes # 0.9 Eosinophils # 0.1 Basophils # 0.0 Nucleated Red Blood Cells # 0.0 Sodium Level 147 H Potassium Level 3.3 L Chloride Level 102 Carbon Dioxide Level 33 H Anion Gap 15 Blood Urea Nitrogen 20 Creatinine 0.93 Glucose Level 103 Calcium Level 8.1 L Medications Medications Current Medications Enoxaparin Sodium (Lovenox) 40 mg DAILY SC Last administered on 12/09/16 15:28 ; Admin Dose 40 MG; Start 12/06/16 at 09:00 Acetaminophen (Tylenol Liquid) 650 mg Q4H PRN PO PAIN AND OR ELEVATED TEMP Last administered on 12/08/16 02:05; Admin Dose 650 MG; Start 12/05/16 at 18:00 Ondansetron HCl (Zofran Inj) 4 mg Q4H PRN IV NAUSEA AND/OR VOMITING; Start 12/05 at 18:00 Quetiapine Fumarate 12.5 mg 12.5 mg BID PO Last administered on 12/09/16 20:36 ; Admin Dose 12.5 MG; Start 12/07/16 at 09:00 Meropenem/Sodium Chloride (Merrem 1 Gm/50 ml (Pmx)) 50 ml @ 100 mls/hr Q8 IVPB Last administered on 12/10/16 05:53; Admin Dose 100 MLS/HR; Start 12/09/16 at 14:00 Docusate Sodium (Colace) 100 mg BID PO Last administered on 12/09/16 20:36; Admin Dose 100 MG; Start 12/09/16 at 21:00 Magnesium Hydroxide 30 ml 30 ml DAILY PRN PO for constipation; Start 12/09/16 at 14:00 Vancomycin HCl/ Sodium Chloride (Vancocin/NS) 250 ml @ 83.333 mls/ hr Q24H IVPB ; Start 12/10/16 at 15:00 MAHENDRA VILLALOBOS MD Dec 10, 2016 08:34
[2016-12-10] MEDS: ENOXAPARIN 40 MG/0.4 ML SYG SC SCH (08:49)
[2016-12-10] MEDS: DOCUSATE SODIUM 100 MG CAP PO SCH ×2 (08:50→20:57)
[2016-12-10] MEDS: MAGNESIUM HYDROXIDE 30ML CUP PO PRN (08:50)
[2016-12-10] MEDS: QUETIAPINE 25 MG TAB PO SCH ×2 (08:50→20:57)
--- NOTE | 2016-12-10 14:06 | PN ---
Date/Time of Note Date/Time of Note DATE: 12/10/16 TIME: 13:58 Assessment/Plan VTE Prophylaxis VTE Prophylaxis Intervention: LMWH Lines/Catheters IV Catheter Type (from [facility] [place]): Saline Lock Urinary Cath still in place: No Assessment/Plan Chief Complaint/Hosp Course 1. Dementia . He is getting closer to baseline mental status . He is still confused . He was seen by neurology. They agree acute encephalopathy superimposed on dementia. CAT scan of head did not show any acute changes.. 2. Right pleural effusion. R pneumonia . loculated effusion . Thoracentesis done yesterday and 450 cc of fluid removed , exudative , 3. Peripheral edema , he has a normal EF on echocardiogram and negative venous dopplers . Edema has improved and I will decrease diuretics . 4. Debility. Will start PT . 5. Will advance diet as tolerated. 6. Discussed above with . She tells me that on there advanced directives they have stipulated that they do not want heroic measures in the event that they has a catastrophic event. She agrees with having a DNR status which I will order. 7. dysphagia ,he had swallowing study done yesterday which shows aspiration . He does not want a feeding tube . Continue current diet . To be evaluated by Acute Rehab . Problems: Subjective 24 Hr Interval Summary Free Text/Dictation He is awake and responsive ; although , confused and difficult to understand . Constitutional: disoriented Respiratory: cough Cardiovascular: no complaints Gastrointestinal: other Genitourinary: no complaints Musculoskeletal: no complaints Exam/Review of Systems Vital Signs Vitals Vital Signs Date Time Temp Pulse Resp B/P Pulse Ox O2 Delivery O2 Flow Rate FiO2 12/10/16 11:21 2.0 12/10/16 08:34 98.5 97 22 111/62 93 12/08/16 06:17 Nasal Cannula Intake and Output 12/09/16 12/09/16 12/10/16 15:00 23:00 07:00 Intake Total 100 ml 900 ml 100 ml Balance 100 ml 900 ml 100 ml Exam Constitutional: alert, frail Psych: confusion Neck: supple Respiratory: congested cough, diminished breath sounds Cardiovascular: regular rate and rhythm Gastrointestinal: non-tender, soft Musculoskeletal: nl extremities to inspection Results Result Diagram: 12/10/16 0427 12/10/16 0427 Results 24 hrs Laboratory Tests Test 12/10/16 04:27 White Blood Count 15.5 H Red Blood Count 3.88 L Hemoglobin 11.4 L Hematocrit 35.7 L Mean Corpuscular Volume 92.0 Mean Corpuscular Hemoglobin 29.4 Mean Corpuscular Hemoglobin Concent 31.9 L Red Cell Distribution Width 12.8 Platelet Count 587 H Mean Platelet Volume 8.9 Neutrophils % 82.3 H Lymphocytes % 9.9 L Monocytes % 5.9 Eosinophils % 0.8 Basophils % 0.3 Nucleated Red Blood Cells % 0.0 Neutrophils # 12.8 H Lymphocytes # 1.5 Monocytes # 0.9 Eosinophils # 0.1 Basophils # 0.0 Nucleated Red Blood Cells # 0.0 Sodium Level 147 H Potassium Level 3.3 L Chloride Level 102 Carbon Dioxide Level 33 H Anion Gap 15 Blood Urea Nitrogen 20 Creatinine 0.93 Glucose Level 103 Calcium Level 8.1 L Medications Medications Current Medications Enoxaparin Sodium (Lovenox) 40 mg DAILY SC Last administered on 12/10/16 08:49 ; Admin Dose 40 MG; Start 12/06/16 at 09:00 Acetaminophen (Tylenol Liquid) 650 mg Q4H PRN PO PAIN AND OR ELEVATED TEMP Last administered on 12/08/16 02:05; Admin Dose 650 MG; Start 12/05/16 at 18:00 Ondansetron HCl (Zofran Inj) 4 mg Q4H PRN IV NAUSEA AND/OR VOMITING; Start 12/05 at 18:00 Quetiapine Fumarate 12.5 mg 12.5 mg BID PO Last administered on 12/10/16 08:50 ; Admin Dose 12.5 MG; Start 12/07/16 at 09:00 Meropenem/Sodium Chloride (Merrem 1 Gm/50 ml (Pmx)) 50 ml @ 100 mls/hr Q8 IVPB Last administered on 12/10/16 05:53; Admin Dose 100 MLS/HR; Start 12/09/16 at 14:00 Docusate Sodium (Colace) 100 mg BID PO Last administered on 12/10/16 08:50; Admin Dose 100 MG; Start 12/09/16 at 21:00 Magnesium Hydroxide 30 ml 30 ml DAILY PRN PO for constipation Last administered on 12/10/16 08:50; Admin Dose 30 ML; Start 12/09/16 at 14:00 Vancomycin HCl/ Sodium Chloride (Vancocin/NS) 250 ml @ 83.333 mls/ hr Q24H IVPB ; Start 12/10/16 at 15:00 CAYDEN LAI MD Dec 10, 2016 14:06
[2016-12-10] MEDS ORDERED: POTASSIUM CHLORIDE 20 MEQ POWDER FOR ORAL SOLN PO ONE (14:30)
[2016-12-10 14:58] VITALS: BP 105/57; RESP 22
[2016-12-10] MEDS: VANCOMYCIN 1.25 GM in SOD CHLORIDE 0.9% 250 ML IVPB SCH (15:10)
--- NOTE | 2016-12-10 16:00 | RADRPT ---
Vent Rate: 92 bpm RR Interval: 0 msec LA Interval: 136 msec QRS Duration: 70 msec QT Interval: 360 msec QTC Interval: 445 msec P-R-T [place]: 57 - 54 - 61 degrees Normal sinus rhythm Normal ECG Electronically Signed By: Konstantin Ruiz [id number]
--- NOTE | 2016-12-10 16:28 | CONS ---
Date/Time of Note Date/Time of Note DATE: 12/10/16 TIME: 16:26 Consult Date/Type/Reason Admit Date/Time Dec 06, 2016 at 10:07 Initial Consult Date 12/06/16 Type of Consultation: Pulmonary Ordering Provider: CAYDEN LAI MD Subjective Patient relatively comfortable. Status post thoracentesis. Pleural fluid consistent with exudative effusion. Likely secondary to aspiration pneumonia. Objective Vital Signs Date Time Temp Pulse Resp B/P Pulse Ox O2 Delivery O2 Flow Rate FiO2 12/10/16 14:58 98.4 95 22 105/57 93 12/10/16 11:21 2.0 12/08/16 06:17 Nasal Cannula Intake and Output 12/09/16 12/09/16 12/10/16 14:59 22:59 06:59 Intake Total 100 ml 900 ml 100 ml Balance 100 ml 900 ml 100 ml Exam PHYSICAL EXAMINATION GENERAL: Chronically ill-appearing elderly gentleman. VITAL SIGNS: see below. HEENT: Pupils equal, round, and reactive to light CARDIAC: S1, S2, 1/6 systolic ejection murmur CHEST: Diminished air entry bilaterally. ABDOMEN: Mildly distended. Bowel sounds present no guarding or rebound EXTREMITIES: No cyanosis, clubbing edema +1 NEUROLOGIC: Generalized weakness Results/Medications Result Diagram: 12/10/1642612/10/167 Results 24 hrs Laboratory Tests Test 12/10/16 04:27 White Blood Count 15.5 H Red Blood Count 3.88 L Hemoglobin 11.4 L Hematocrit 35.7 L Mean Corpuscular Volume 92.0 Mean Corpuscular Hemoglobin 29.4 Mean Corpuscular Hemoglobin Concent 31.9 L Red Cell Distribution Width 12.8 Platelet Count 587 H Mean Platelet Volume 8.9 Neutrophils % 82.3 H Lymphocytes % 9.9 L Monocytes % 5.9 Eosinophils % 0.8 Basophils % 0.3 Nucleated Red Blood Cells % 0.0 Neutrophils # 12.8 H Lymphocytes # 1.5 Monocytes # 0.9 Eosinophils # 0.1 Basophils # 0.0 Nucleated Red Blood Cells # 0.0 Sodium Level 147 H Potassium Level 3.3 L Chloride Level 102 Carbon Dioxide Level 33 H Anion Gap 15 Blood Urea Nitrogen 20 Creatinine 0.93 Glucose Level 103 Calcium Level 8.1 L Medications Current Medications Enoxaparin Sodium (Lovenox) 40 mg DAILY SC Last administered on 12/10/16 08:49 ; Admin Dose 40 MG; Start 12/06/16 at 09:00 Acetaminophen (Tylenol Liquid) 650 mg Q4H PRN PO PAIN AND OR ELEVATED TEMP Last administered on 12/08/16 02:05; Admin Dose 650 MG; Start 12/05/16 at 18:00 Ondansetron HCl (Zofran Inj) 4 mg Q4H PRN IV NAUSEA AND/OR VOMITING; Start 12/05 at 18:00 Quetiapine Fumarate 12.5 mg 12.5 mg BID PO Last administered on 12/10/16 08:50 ; Admin Dose 12.5 MG; Start 12/07/16 at 09:00 Meropenem/Sodium Chloride (Merrem 1 Gm/50 ml (Pmx)) 50 ml @ 100 mls/hr Q8 IVPB Last administered on 12/10/16 14:20; Admin Dose 100 MLS/HR; Start 12/09/16 at 14:00 Docusate Sodium (Colace) 100 mg BID PO Last administered on 12/10/16 08:50; Admin Dose 100 MG; Start 12/09/16 at 21:00 Magnesium Hydroxide 30 ml 30 ml DAILY PRN PO for constipation Last administered on 12/10/16 08:50; Admin Dose 30 ML; Start 12/09/16 at 14:00 Vancomycin HCl/ Sodium Chloride (Vancocin/NS) 250 ml @ 83.333 mls/ hr Q24H IVPB Last administered on 12/10/16 15:10; Admin Dose 83.333 MLS/HR; Start at 15:00 Assessment/Plan Chief Complaint/Hosp Course Assessment 1. Hypoxemic respiratory failure 2. Loculated right pleural effusion, status post thoracentesis, will require pigtail catheter drainage. 3. Evidence of recurrent aspiration on swallow evaluation. 4. Leukocytosis secondary to above 5. Hypokalemia Plan 1. Continue current antibiotics, ID recommendations 2. Await pleural fluid studies 3. Pigtail catheter drainage 4. Speech therapy evaluation and recommendations. May require PEG tube placement. 5. Replace electrolytes Problems: RACHID ALAN MD, [facility] Dec 10, 2016 16:28
[2016-12-10] MEDS: ACETAMINOPHEN 650MG/20.3ML CUP PO PRN (18:20)
[2016-12-10 20:05] VITALS: BP 90/54; RESP 20
[2016-12-11 02:28] VITALS: BP 101/57; RESP 18
[2016-12-11] MEDS: MEROPENEM 1 GM/50ML(PMX) 50 ML IVPB SCH ×3 (05:13→21:38)
--- NOTE | 2016-12-11 06:18 | CONS ---
Date/Time of Note Date/Time of Note DATE: 12/11/16 TIME: 06:13 Assessment/Plan Assessment/Plan Chief Complaint/Hosp Course 1) R sided loculated pleural effusion and likely pneumonia clear CXR back in mid october and neg procalcitonin's continue treatment for possible HCA pneumonia with vanco/merrem pt awaits R sided thorancentesis, if infected will likely need a chest tube unable to get sputum cx will get nasal cx for MRSA increase dose of merrem 12/10 - thorancentesis performed and not likely empyema but it is exudative and likely parapneumonic effusion continue with vanco/merrem 12/11 - pt to get pigtail cath for further drainage of R sided loculated pleural effusion continue present vanco/merrem 2) dementia 12/11 - pt is more alert and able to speak back and be understood what he is saying 3) hx of prostate CA and prostatectomy will order u/a and urine cx 12/10 -u/a looks good Problems: Consultation Date/Type/Reason Admit Date/Time Dec 06, 2016 at 10:07 Initial Consult Date 12/09/16 Type of Consultation: ID Referring Provider: CAYDEN LAI MD 24 HR Interval Summary Free Text/Dictation pt to get pleurx cath today (pigtail) spoke to nurse no problems overnight no cough, N, V, D pt's speech is more clear and understandable now he wants to wear pants and is tired of all these procedures Exam/Review of Systems Vital Signs Vitals Vital Signs Date Time Temp Pulse Resp B/P Pulse Ox O2 Delivery O2 Flow Rate FiO2 12/11/16 02:28 97.6 74 18 101/57 97 12/10/16 19:52 2.0 12/08/16 06:17 Nasal Cannula Intake and Output 12/10/16 12/10/16 12/11/16 15:00 23:00 07:00 Intake Total 50 ml 830 ml Balance 50 ml 830 ml Exam Constitutional: alert, other (pt responds to questions and able to be understood today) Head: normocephalic ENMT: mucosa pink and moist Respiratory: other (decreased BS mainly at R base) Cardiovascular: regular rate and rhythm Gastrointestinal: non-tender, soft Results Result Diagram: 12/10/16 0427 12/10/16 042 Medications Medications Current Medications Enoxaparin Sodium (Lovenox) 40 mg DAILY SC Last administered on 12/10/16 08:49 ; Admin Dose 40 MG; Start 12/06/16 at 09:00 Acetaminophen (Tylenol Liquid) 650 mg Q4H PRN PO PAIN AND OR ELEVATED TEMP Last administered on 12/10/16 18:20; Admin Dose 650 MG; Start 12/05/16 at 18:00 Ondansetron HCl (Zofran Inj) 4 mg Q4H PRN IV NAUSEA AND/OR VOMITING; Start 12/05 at 18:00 Quetiapine Fumarate 12.5 mg 12.5 mg BID PO Last administered on 12/10/16 20:57 ; Admin Dose 12.5 MG; Start 12/07/16 at 09:00 Meropenem/Sodium Chloride (Merrem 1 Gm/50 ml (Pmx)) 50 ml @ 100 mls/hr Q8 IVPB Last administered on 12/11/16 05:13; Admin Dose 100 MLS/HR; Start 12/09/16 at 14:00 Docusate Sodium (Colace) 100 mg BID PO Last administered on 12/10/16 20:57; Admin Dose 100 MG; Start 12/09/16 at 21:00 Magnesium Hydroxide 30 ml 30 ml DAILY PRN PO for constipation Last administered on 12/10/16 08:50; Admin Dose 30 ML; Start 12/09/16 at 14:00 Vancomycin HCl/ Sodium Chloride (Vancocin/NS) 250 ml @ 83.333 mls/ hr Q24H IVPB Last administered on 12/10/16 15:10; Admin Dose 83.333 MLS/HR; Start at 15:00 MAHENDRA VILLALOBOS MD Dec 11, 2016 06:17
[2016-12-11 06:49] LABS: BASOPHILS % 0.3 % (0.0-2.0); EOSINOPHILS # 0.2 10^3/ul (0.0-0.5); EOSINOPHILS % 1.5 % (0.0-7.0); HEMATOCRIT 36.5 % (42.0-52.0); HEMOGLOBIN 11.4 g/dl (14.0-18.0); LYMPHOCYTES # 1.8 10^3/ul (0.8-2.9); LYMPHOCYTES % 11.3 % (15.0-51.0); MEAN CORPUSCULAR HEMOGLOBIN 28.9 pg (29.0-33.0); MEAN CORPUSCULAR HGB CONC 31.2 g/dl (32.0-37.0); MEAN CORPUSCULAR VOLUME 92.6 fl (82.0-101.0); MEAN PLATELET VOLUME 8.9 fl (7.4-10.4); MONOCYTE # 0.9 10^3/ul (0.3-0.9); MONOCYTES % 5.4 % (0.0-11.0); NEUTROPHIL # 12.6 10^3/ul (1.6-7.5); NEUTROPHILS % 80.9 % (39.0-77.0); PLATELET COUNT 624 10^3/UL (140-415); RED BLOOD COUNT 3.94 10^6/ul (4.70-6.10); RED CELL DISTRIBUTION WIDTH 12.9 % (11.5-14.5); WHITE BLOOD COUNT 15.6 10^3/ul (4.8-10.8)
[2016-12-11 07:10] LABS: CALCIUM 8.2 mg/dl (8.4-10.2); CREATININE 0.88 mg/dl (0.61-1.24); POTASSIUM 3.6 mmol/L (3.5-5.1)
[2016-12-11 07:56] VITALS: BP 105/55; RESP 20
[2016-12-11] MEDS: MAGNESIUM HYDROXIDE 30ML CUP PO PRN (09:16)
[2016-12-11] MEDS: DOCUSATE SODIUM 100 MG CAP PO SCH (09:16)
[2016-12-11] MEDS: QUETIAPINE 25 MG TAB PO SCH ×2 (09:16→21:38)
[2016-12-11] MEDS: ENOXAPARIN 40 MG/0.4 ML SYG SC SCH (09:24)
--- NOTE | 2016-12-11 10:13 | RADRPT ---
PROCEDURE: Chest 1 views. CLINICAL INDICATION: Shortness of breath. TECHNIQUE: AP views of the chest was obtained. COMPARISON: December 09, 2016 FINDINGS: The heart is large. Moderate sized, loculated appearing right pleural effusion is unchanged. Associ ated infiltrates in the right middle and lower lobes are stable. Atelectasis is seen at the left gaetano ng base. The osseous structures are osteopenic, but appear grossly intact. IMPRESSION: Cardiomegaly . Stable moderate sized, loculated appearing right pleural effusion with associated infiltrates in the right middle and lower lobes. Atelectasis at the left lung base. RPTAT: AA .Huy Rm MD, MD Date Time Electronically viewed and signed by .Huy Rm MD, on 12/11/2016 10:12 .P/
--- NOTE | 2016-12-11 13:23 | CONS ---
Date/Time of Note Date/Time of Note DATE: 12/11/16 TIME: 13:22 Consult Date/Type/Reason Admit Date/Time Dec 06, 2016 at 10:07 Initial Consult Date 12/06/16 Type of Consultation: Pulmonary Ordering Provider: CAYDEN LAI MD Subjective Agitated. No evidence of respiratory distress. Objective Vital Signs Date Time Temp Pulse Resp B/P Pulse Ox O2 Delivery O2 Flow Rate FiO2 12/11/16 07:56 97.5 92 20 105/55 94 12/10/16 19:52 2.0 12/08/16 06:17 Nasal Cannula Intake and Output 12/10/16 12/10/16 12/11/16 15:00 23:00 07:00 Intake Total 50 ml 1130 ml 750 ml Balance 50 ml 1130 ml 750 ml Exam PHYSICAL EXAMINATION GENERAL: Chronically ill-appearing elderly gentleman. VITAL SIGNS: see below. HEENT: Pupils equal, round, and reactive to light CARDIAC: S1, S2, 1/6 systolic ejection murmur CHEST: Diminished air entry bilaterally. ABDOMEN: Mildly distended. Bowel sounds present no guarding or rebound EXTREMITIES: No cyanosis, clubbing edema +1 NEUROLOGIC: Generalized weakness Results/Medications Result Diagram: 12/11/16 0600 12/11/16 0600 Results 24 hrs Laboratory Tests Test 12/11/16 06:00 White Blood Count 15.6 H Red Blood Count 3.94 L Hemoglobin 11.4 L Hematocrit 36.5 L Mean Corpuscular Volume 92.6 Mean Corpuscular Hemoglobin 28.9 L Mean Corpuscular Hemoglobin Concent 31.2 L Red Cell Distribution Width 12.9 Platelet Count 624 H Mean Platelet Volume 8.9 Neutrophils % 80.9 H Lymphocytes % 11.3 L Monocytes % 5.4 Eosinophils % 1.5 Basophils % 0.3 Nucleated Red Blood Cells % 0.0 Neutrophils # 12.6 H Lymphocytes # 1.8 Monocytes # 0.9 Eosinophils # 0.2 Basophils # 0.0 Nucleated Red Blood Cells # 0.0 Sodium Level 148 H Potassium Level 3.6 Chloride Level 104 Carbon Dioxide Level 33 H Anion Gap 15 Blood Urea Nitrogen 21 H Creatinine 0.88 Glucose Level 90 Calcium Level 8.2 L Medications Current Medications Enoxaparin Sodium (Lovenox) 40 mg DAILY SC Last administered on 12/11/16t 09:24 ; Admin Dose 40 MG; Start 8/5/17 at 09:00 Acetaminophen (Tylenol Liquid) 650 mg Q4H PRN PO PAIN AND OR ELEVATED TEMP Last administered on 12/10/16 18:20; Admin Dose 650 MG; Start 12/05/16 at 18:00 Ondansetron HCl (Zofran Inj) 4 mg Q4H PRN IV NAUSEA AND/OR VOMITING; Start 12/05 at 18:00 Quetiapine Fumarate 12.5 mg 12.5 mg BID PO Last administered on 12/11/16 09:16 ; Admin Dose 12.5 MG; Start 12/07/16 at 09:00 Meropenem/Sodium Chloride (Merrem 1 Gm/50 ml (Pmx)) 50 ml @ 100 mls/hr Q8 IVPB Last administered on 12/11/16 13:17; Admin Dose 100 MLS/HR; Start 12/09/16 at 14:00 Docusate Sodium (Colace) 100 mg BID PO Last administered on 12/11/16 09:16; Admin Dose 100 MG; Start 12/09/16 at 21:00 Magnesium Hydroxide 30 ml 30 ml DAILY PRN PO for constipation Last administered on 12/11/16 09:16; Admin Dose 30 ML; Start 12/09/16 at 14:00 Vancomycin HCl/ Sodium Chloride (Vancocin/NS) 250 ml @ 83.333 mls/ hr Q24H IVPB Last administered on 12/10/16 15:10; Admin Dose 83.333 MLS/HR; Start at 15:00 Miscellaneous Information (*Rx Drug Level Order Reminder*) 1 ONCE ONCE XX ; Start 12/12/16 at 14:00; Stop 12/12/16 at 14:01 Assessment/Plan Chief Complaint/Hosp Course Assessment 1. Hypoxemic respiratory failure 2. Loculated right pleural effusion, status post thoracentesis, discussed with radiology. Not enough fluid for chest pain. 3. Evidence of recurrent aspiration on swallow evaluation. 4. Leukocytosis secondary to above 5. Hypokalemia Plan 1. Continue current antibiotics, ID recommendations 2. Await pleural fluid studies 3. Aspiration precautions 4. Speech therapy evaluation and recommendations. May require PEG tube placement. 5. Replace electrolytes Prognosis guarded. May require palliative care. Problems: RACHID ALAN MD, [facility] Dec 11, 2016 13:23
[2016-12-11] MEDS: VANCOMYCIN 1.25 GM in SOD CHLORIDE 0.9% 250 ML IVPB SCH (14:38)
[2016-12-11 15:30] VITALS: BP 99/55; RESP 20
[2016-12-11 20:05] VITALS: BP 106/52; RESP 18
--- NOTE | 2016-12-11 20:27 | PN ---
Date/Time of Note Date/Time of Note DATE: 12/11/16 TIME: 20:20 Assessment/Plan VTE Prophylaxis VTE Prophylaxis Intervention: LMWH Lines/Catheters [facility] Saline Lock Urinary Cath still in place: No Assessment/Plan Chief Complaint/Hosp Course 1. Dementia . He is getting closer to baseline mental status and is trying to speak . He is still confused . He was seen by neurology. They agree acute encephalopathy superimposed on dementia. CAT scan of head did not show any acute changes.. 2. Right pleural effusion. R pneumonia . loculated effusion . Thoracentesis done 2 days ago and 450 cc of fluid removed , exudative , normal cytology . 3. Peripheral edema , he has a normal EF on echocardiogram and negative venous dopplers . Edema has improved and I will decrease diuretics . 4. Debility. Will start PT . He has been accepted to Acute Rehab Unit . 5. Will advance diet as tolerated. 6. Discussed above with . She tells me that on there advanced directives and they have stipulated that they do not want heroic measures in the event that they has a catastrophic event. She agrees with having a DNR status which I will order DNR . 7. dysphagia ,he had swallowing study done yesterday which shows aspiration . He does not want a feeding tube . Continue current diet . I spoke with and daughter about this and they agree no feeding tube . Problems: Subjective 24 Hr Interval Summary Free Text/Dictation The patient is awake and is trying to speak to me ; although most of his speech is unintelligible . His and general teller are in the room . Constitutional: disoriented, poor po Exam/Review of Systems Vital Signs Vitals Vital Signs Date Time Temp Pulse Resp B/P Pulse Ox O2 Delivery O2 Flow Rate FiO2 12/11/16 18:57 2.0 12/11/16 15:30 98.6 87 20 99/55 97 12/08/16 06:17 Nasal Cannula Intake and Output 12/10/16 12/10/16 12/11/16 15:00 23:00 07:00 Intake Total 50 ml 1130 ml 750 ml Balance 50 ml 1130 ml 750 ml Exam Constitutional: alert Psych: confusion ENMT: nl external ears & nose Neck: supple Respiratory: diminished breath sounds Cardiovascular: regular rate and rhythm Gastrointestinal: soft Musculoskeletal: nl extremities to inspection Neurological: confused Results Result Diagram: 12/11/16 0600 12/11/16 0600 Results 24 hrs Laboratory Tests Test 12/11/16 06:00 White Blood Count 15.6 H Red Blood Count 3.94 L Hemoglobin 11.4 L Hematocrit 36.5 L Mean Corpuscular Volume 92.6 Mean Corpuscular Hemoglobin 28.9 L Mean Corpuscular Hemoglobin Concent 31.2 L Red Cell Distribution Width 12.9 Platelet Count 624 H Mean Platelet Volume 8.9 Neutrophils % 80.9 H Lymphocytes % 11.3 L Monocytes % 5.4 Eosinophils % 1.5 Basophils % 0.3 Nucleated Red Blood Cells % 0.0 Neutrophils # 12.6 H Lymphocytes # 1.8 Monocytes # 0.9 Eosinophils # 0.2 Basophils # 0.0 Nucleated Red Blood Cells # 0.0 Sodium Level 148 H Potassium Level 3.6 Chloride Level 104 Carbon Dioxide Level 33 H Anion Gap 15 Blood Urea Nitrogen 21 H Creatinine 0.88 Glucose Level 90 Calcium Level 8.2 L Medications Medications Current Medications Enoxaparin Sodium (Lovenox) 40 mg DAILY SC Last administered on 12/11/16 09:24 ; Admin Dose 40 MG; Start 12/06/16 at 09:00 Acetaminophen (Tylenol Liquid) 650 mg Q4H PRN PO PAIN AND OR ELEVATED TEMP Last administered on 12/10/16 18:20; Admin Dose 650 MG; Start 12/05/16 at 18:00 Ondansetron HCl (Zofran Inj) 4 mg Q4H PRN IV NAUSEA AND/OR VOMITING; Start 12/05 at 18:00 Quetiapine Fumarate 12.5 mg 12.5 mg BID PO Last administered on 12/11/16 09:16 ; Admin Dose 12.5 MG; Start 12/07/16 at 09:00 Meropenem/Sodium Chloride (Merrem 1 Gm/50 ml (Pmx)) 50 ml @ 100 mls/hr Q8 IVPB Last administered on 12/11/16 13:17; Admin Dose 100 MLS/HR; Start 12/09/16 at 14:00 Docusate Sodium (Colace) 100 mg BID PO Last administered on 12/11/16 09:16; Admin Dose 100 MG; Start 12/09/16 at 21:00 Magnesium Hydroxide 30 ml 30 ml DAILY PRN PO for constipation Last administered on 12/11/16 09:16; Admin Dose 30 ML; Start 12/09/16 at 14:00 Vancomycin HCl/ Sodium Chloride (Vancocin/NS) 250 ml @ 83.333 mls/ hr Q24H IVPB Last administered on 12/11/16 14:38; Admin Dose 83.333 MLS/HR; Start 12/10 at 15:00 Miscellaneous Information (*Rx Drug Level Order Reminder*) 1 ONCE ONCE XX ; Start 12/12/16 at 14:00; Stop 12/12/16 at 14:01 CAYDEN LAI MD Dec 11, 2016 20:27
[2016-12-11] MEDS: DOCUSATE SODIUM 10 MG/ML (10ML CUP) PO SCH (21:38)
[2016-12-12 02:35] VITALS: BP 103/57; RESP 20
[2016-12-12] MEDS: MEROPENEM 1 GM/50ML(PMX) 50 ML IVPB SCH (05:26)
[2016-12-12 06:38] LABS: WHITE BLOOD COUNT 15.1 10^3/ul (4.8-10.8)
[2016-12-12 06:39] LABS: BASOPHILS % 0.3 % (0.0-2.0); EOSINOPHILS # 0.2 10^3/ul (0.0-0.5); EOSINOPHILS % 1.5 % (0.0-7.0); HEMATOCRIT 33.4 % (42.0-52.0); HEMOGLOBIN 10.7 g/dl (14.0-18.0); LYMPHOCYTES # 1.8 10^3/ul (0.8-2.9); LYMPHOCYTES % 11.8 % (15.0-51.0); MEAN CORPUSCULAR HEMOGLOBIN 30.1 pg (29.0-33.0); MEAN CORPUSCULAR VOLUME 94.1 fl (82.0-101.0); MONOCYTE # 0.9 10^3/ul (0.3-0.9); NEUTROPHILS % 79.9 % (39.0-77.0); PLATELET COUNT 566 10^3/UL (140-415); RED BLOOD COUNT 3.55 10^6/ul (4.70-6.10); RED CELL DISTRIBUTION WIDTH 12.9 % (11.5-14.5)
[2016-12-12 07:08] LABS: CALCIUM 8.1 mg/dl (8.4-10.2); CREATININE 0.82 mg/dl (0.61-1.24); POTASSIUM 3.9 mmol/L (3.5-5.1)
[2016-12-12 08:10] VITALS: BP 112/68; RESP 18
[2016-12-12] MEDS: DOCUSATE SODIUM 10 MG/ML (10ML CUP) PO SCH ×2 (08:20→21:02)
[2016-12-12] MEDS: QUETIAPINE 25 MG TAB PO SCH ×2 (08:20→20:53)
[2016-12-12] MEDS: ENOXAPARIN 40 MG/0.4 ML SYG SC SCH (08:21)
--- NOTE | 2016-12-12 10:45 | PN ---
Date/Time of Note Date/Time of Note DATE: 12/12/16 TIME: 10:39 Assessment/Plan VTE Prophylaxis VTE Prophylaxis Intervention: LMWH Lines/Catheters IV [facility]from [facility] Saline Lock Urinary Cath still in place: No Assessment/Plan Chief Complaint/Hosp Course 1. Dementia . He is getting closer to baseline mental status and is trying to speak . He is still confused . He was seen by neurology. They agree acute encephalopathy superimposed on dementia. CAT scan of head did not show any acute changes.. The patient has been accepted to acute rehab unit. He will be transferred there today. I have informed the and his daughter of this transfer. We will continue DNR status there. 2. Right pleural effusion. R pneumonia . loculated effusion . Thoracentesis done 2 days ago and 450 cc of fluid removed , exudative , normal cytology . 3. Peripheral edema , he has a normal EF on echocardiogram and negative venous dopplers . Edema has improved and I will decrease diuretics . 4. Debility. Will start PT . He has been accepted to Acute Rehab Unit . 5. Will advance diet as tolerated. 6. Discussed above with . She tells me that on there advanced directives and they have stipulated that they do not want heroic measures in the event that they has a catastrophic event. She agrees with having a DNR status which I will order DNR . 7. dysphagia ,he had swallowing study done yesterday which shows aspiration . He does not want a feeding tube . Continue current diet . I spoke with and daughter about this and they agree no feeding tube . Problems: Subjective 24 Hr Interval Summary Free Text/Dictation He is sleeping but he does arouse to verbal stimuli and is responsive. He is confused and it is difficult to understand him. He does have some area of redness on his right arm where he had an IV. I suspect the IV infiltrated. Constitutional: disoriented Exam/Review of Systems Vital Signs Vitals Vital Signs Date Time Temp Pulse Resp B/P Pulse Ox O2 Delivery O2 Flow Rate FiO2 12/12/16 08:10 98.1 84 18 112/68 96 12/12/16 03:52 2.0 12/11/16 21:30 Nasal Cannula Intake and Output 12/11/16 12/11/16 12/12/16 15:00 23:00 07:00 Intake Total 50 ml 850 ml 170 ml Balance 50 ml 850 ml 170 ml Exam Constitutional: alert Psych: confusion Respiratory: diminished breath sounds Cardiovascular: regular rate and rhythm Gastrointestinal: soft Musculoskeletal: nl extremities to inspection Neurological: confused (Home on #1 4-year-old Gretchen so I will write out this stuff for him he knows the mass has not seen him now because we can switch him to oral just being here and all of his right for now and he can go and continue the nose DNR on him when he goes) Results Result Diagram: 12/12/16 0544 12/12/16 0544 Results 24 hrs Laboratory Tests Test 12/12/16 05:44 White Blood Count 15.1 H Red Blood Count 3.55 L Hemoglobin 10.7 L Hematocrit 33.4 L Mean Corpuscular Volume 94.1 Mean Corpuscular Hemoglobin 30.1 Mean Corpuscular Hemoglobin Concent 32.0 Red Cell Distribution Width 12.9 Platelet Count 566 H Mean Platelet Volume 9.0 Neutrophils % 79.9 H Lymphocytes % 11.8 L Monocytes % 6.0 Eosinophils % 1.5 Basophils % 0.3 Nucleated Red Blood Cells % 0.0 Neutrophils # 12.0 H Lymphocytes # 1.8 Monocytes # 0.9 Eosinophils # 0.2 Basophils # 0.0 Nucleated Red Blood Cells # 0.0 Sodium Level 147 H Potassium Level 3.9 Chloride Level 104 Carbon Dioxide Level 32 H Anion Gap 15 Blood Urea Nitrogen 21 H Creatinine 0.82 Glucose Level 88 Calcium Level 8.1 L Medications Medications Current Medications Enoxaparin Sodium (Lovenox) 40 mg DAILY SC Last administered on 12/12/16 08:21 ; Admin Dose 40 MG; Start 12/06/16 at 09:00 Acetaminophen (Tylenol Liquid) 650 mg Q4H PRN PO PAIN AND OR ELEVATED TEMP Last administered on 12/10/16 18:20; Admin Dose 650 MG; Start 12/05/16 at 18:00 Ondansetron HCl (Zofran Inj) 4 mg Q4H PRN IV NAUSEA AND/OR VOMITING; Start 12/05 at 18:00 Quetiapine Fumarate 12.5 mg 12.5 mg BID PO Last administered on 12/12/16 08:20 ; Admin Dose 12.5 MG; Start 12/07/16 at 09:00 Meropenem/Sodium Chloride (Merrem 1 Gm/50 ml (Pmx)) 50 ml @ 100 mls/hr Q8 IVPB Last administered on 12/12/16 05:26; Admin Dose 100 MLS/HR; Start 12/09/16 at 14:00 Magnesium Hydroxide 30 ml 30 ml DAILY PRN PO for constipation Last administered on 12/11/16 09:16; Admin Dose 30 ML; Start 12/09/16 at 14:00 Vancomycin HCl/ Sodium Chloride (Vancocin/NS) 250 ml @ 83.333 mls/ hr Q24H IVPB Last administered on 12/11/16 14:38; Admin Dose 83.333 MLS/HR; Start 12/10 at 15:00 Miscellaneous Information (*Rx Drug Level Order Reminder*) 1 ONCE ONCE XX ; Start 12/12/16 at 14:00; Stop 12/12/16 at 14:01 Docusate Sodium (Colace Liquid Cup) 100 mg BID PO Last administered on 08:20; Admin Dose 100 MG; Start 12/11/16 at 21:00 CAYDEN LAI MD Dec 12, 2016 10:45
--- NOTE | 2016-12-12 10:48 | PDOCDIS ---
Discharge Instructions DIAGNOSIS Discharge Diagnosis 1.Right lower lobe pneumonia with loculated pleural effusion 2.Encephalopathy superimposed on dementia 3. Debility 4. Malnourished. CONDITION Patient Condition: Fair HOME CARE INSTRUCTIONS: Diet Instructions: Special Diet: PUREED, NECTAR THICK LIQ ACTIVITY: Activity Restrictions: Slowly Increase Activity Rest between Activity Bathing Restrictions: Shower FOLLOW UP/APPOINTMENTS Follow-up Plan CAYDEN Whitaker MD Dec 12, 2016 10:48
--- NOTE | 2016-12-12 12:33 | CONS ---
Date/Time of Note Date/Time of Note DATE: 12/12/16 TIME: 12:21 Assessment/Plan Assessment/Plan Chief Complaint/Hosp Course 1) R sided loculated pleural effusion and likely pneumonia clear CXR back in mid october and neg procalcitonin's continue treatment for possible HCA pneumonia with vanco/merrem pt awaits R sided thorancentesis, if infected will likely need a chest tube unable to get sputum cx will get nasal cx for MRSA increase dose of merrem 12/10 - thorancentesis performed and not likely empyema but it is exudative and likely parapneumonic effusion continue with vanco/merrem 12/11 - pt to get pigtail cath for further drainage of R sided loculated pleural effusion continue present vanco/merrem 12/12 - too little fluid to be able to get pigtail cath in and pt now a good candidate for decortication will change antibiotics to levo/flayl/doxy and continue thru 12/18 2) dementia 12/11 - pt is more alert and able to speak back and be understood what he is saying 12/12 - again hard to understand 1/2 of what he says 3) hx of prostate CA and prostatectomy will order u/a and urine cx 12/10 -u/a looks good Problems: Consultation Date/Type/Reason Admit Date/Time Dec 06, 2016 at 10:07 Initial Consult Date 12/09/16 Type of Consultation: ID Referring Provider: CAYDEN LAI MD 24 HR Interval Summary Free Text/Dictation pt is again more hard to understand looks comfortable, No V, D Exam/Review of Systems Vital Signs Vitals Vital Signs Date Time Temp Pulse Resp B/P Pulse Ox O2 Delivery O2 Flow Rate FiO2 12/12/16 08:10 98.1 84 18 112/68 96 12/12/16 03:52 2.0 12/11/16 21:30 Nasal Cannula Intake and Output 12/11/16 12/11/16 12/12/16 15:00 23:00 07:00 Intake Total 50 ml 850 ml 170 ml Balance 50 ml 850 ml 170 ml Exam Constitutional: alert Head: normocephalic ENMT: mucosa pink and moist Respiratory: other (decreased BS at R base) Cardiovascular: regular rate and rhythm Gastrointestinal: non-tender, soft Results Result Diagram: 12/12/16 0544 12/12/16 0544 Results 24 hrs Laboratory Tests Test 12/12/16 05:44 White Blood Count 15.1 H Red Blood Count 3.55 L Hemoglobin 10.7 L Hematocrit 33.4 L Mean Corpuscular Volume 94.1 Mean Corpuscular Hemoglobin 30.1 Mean Corpuscular Hemoglobin Concent 32.0 Red Cell Distribution Width 12.9 Platelet Count 566 H Mean Platelet Volume 9.0 Neutrophils % 79.9 H Lymphocytes % 11.8 L Monocytes % 6.0 Eosinophils % 1.5 Basophils % 0.3 Nucleated Red Blood Cells % 0.0 Neutrophils # 12.0 H Lymphocytes # 1.8 Monocytes # 0.9 Eosinophils # 0.2 Basophils # 0.0 Nucleated Red Blood Cells # 0.0 Sodium Level 147 H Potassium Level 3.9 Chloride Level 104 Carbon Dioxide Level 32 H Anion Gap 15 Blood Urea Nitrogen 21 H Creatinine 0.82 Glucose Level 88 Calcium Level 8.1 L Medications Medications Current Medications Enoxaparin Sodium (Lovenox) 40 mg DAILY SC Last administered on 12/12/16 08:21 ; Admin Dose 40 MG; Start 12/06/16 at 09:00 Acetaminophen (Tylenol Liquid) 650 mg Q4H PRN PO PAIN AND OR ELEVATED TEMP Last administered on 12/10/16 18:20; Admin Dose 650 MG; Start 12/05/16 at 18:00 Ondansetron HCl (Zofran Inj) 4 mg Q4H PRN IV NAUSEA AND/OR VOMITING; Start 12/05 at 18:00 Quetiapine Fumarate 12.5 mg 12.5 mg BID PO Last administered on 12/12/16 08:20 ; Admin Dose 12.5 MG; Start 12/07/16 at 09:00 Meropenem/Sodium Chloride (Merrem 1 Gm/50 ml (Pmx)) 50 ml @ 100 mls/hr Q8 IVPB Last administered on 12/12/16 05:26; Admin Dose 100 MLS/HR; Start 12/09/16 at 14:00 Magnesium Hydroxide 30 ml 30 ml DAILY PRN PO for constipation Last administered on 12/11/16 09:16; Admin Dose 30 ML; Start 12/09/16 at 14:00 Vancomycin HCl/ Sodium Chloride (Vancocin/NS) 250 ml @ 83.333 mls/ hr Q24H IVPB Last administered on 12/11/16 14:38; Admin Dose 83.333 MLS/HR; Start 12/10 at 15:00 Miscellaneous Information (*Rx Drug Level Order Reminder*) 1 ONCE ONCE XX ; Start 12/12/16 at 14:00; Stop 12/12/16 at 14:01 Docusate Sodium (Colace Liquid Cup) 100 mg BID PO Last administered on 08:20; Admin Dose 100 MG; Start 12/11/16 at 21:00 Silver Sulfadiazine (Thermazene 1% 25 Gm) 1 applic DAILY TOP ; Start 12/12/16 at 13:00 MAHENDRA VILLALOBOS MD Dec 12, 2016 12:33
[2016-12-12] MEDS ORDERED: SILVER SULFADIAZINE 1% 25 GM CR TOP SCH (13:00)
[2016-12-12] MEDS: metroNIDAZOLE 500 MG TAB PO SCH ×2 (14:19→21:01)
[2016-12-12 14:30] VITALS: BP 110/55; RESP 16
--- NOTE | 2016-12-12 15:31 | CONS ---
Date/Time of Note Date/Time of Note DATE: 12/12/16 TIME: 15:29 Consult Date/Type/Reason Admit Date/Time Dec 06, 2016 at 10:07 Initial Consult Date 12/06/16 Type of Consultation: Pulmonary Ordering Provider: CAYDEN LAI MD Subjective Intermittent agitation. Objective Vital Signs Date Time Temp Pulse Resp B/P Pulse Ox O2 Delivery O2 Flow Rate FiO2 12/12/16 14:30 98.3 82 16 110/55 96 12/12/16 03:52 2.0 12/11/16 21:30 Nasal Cannula Intake and Output 12/11/16 12/11/16 12/12/16 15:00 23:00 07:00 Intake Total 50 ml 850 ml 170 ml Balance 50 ml 850 ml 170 ml Exam PHYSICAL EXAMINATION GENERAL: Chronically ill-appearing elderly gentleman. VITAL SIGNS: see below. HEENT: Pupils equal, round, and reactive to light CARDIAC: S1, S2, 1/6 systolic ejection murmur CHEST: Diminished air entry bilaterally. ABDOMEN: Mildly distended. Bowel sounds present no guarding or rebound EXTREMITIES: No cyanosis, clubbing edema +1 NEUROLOGIC: Generalized weakness Results/Medications Result Diagram: 12/12/16 0544 12/12/16 0544 Results 24 hrs Laboratory Tests Test 12/12/16 05:44 White Blood Count 15.1 H Red Blood Count 3.55 L Hemoglobin 10.7 L Hematocrit 33.4 L Mean Corpuscular Volume 94.1 Mean Corpuscular Hemoglobin 30.1 Mean Corpuscular Hemoglobin Concent 32.0 Red Cell Distribution Width 12.9 Platelet Count 566 H Mean Platelet Volume 9.0 Neutrophils % 79.9 H Lymphocytes % 11.8 L Monocytes % 6.0 Eosinophils % 1.5 Basophils % 0.3 Nucleated Red Blood Cells % 0.0 Neutrophils # 12.0 H Lymphocytes # 1.8 Monocytes # 0.9 Eosinophils # 0.2 Basophils # 0.0 Nucleated Red Blood Cells # 0.0 Sodium Level 147 H Potassium Level 3.9 Chloride Level 104 Carbon Dioxide Level 32 H Anion Gap 15 Blood Urea Nitrogen 21 H Creatinine 0.82 Glucose Level 88 Calcium Level 8.1 L Medications Current Medications Enoxaparin Sodium (Lovenox) 40 mg DAILY SC Last administered on 12/12/16t 08:21 ; Admin Dose 40 MG; Start 12/06/16 at 09:00 Acetaminophen (Tylenol Liquid) 650 mg Q4H PRN PO PAIN AND OR ELEVATED TEMP Last administered on 12/10/16 18:20; Admin Dose 650 MG; Start 12/05/16 at 18:00 Ondansetron HCl (Zofran Inj) 4 mg Q4H PRN IV NAUSEA AND/OR VOMITING; Start 12/05 at 18:00 Quetiapine Fumarate (Seroquel) 12.5 mg BID PO Last administered on 12/12/16 08 :20; Admin Dose 12.5 MG; Start 12/07/16 at 09:00 Magnesium Hydroxide (Milk Of Mag) 30 ml DAILY PRN PO for constipation Last administered on 12/11/16 09:16; Admin Dose 30 ML; Start 12/09/16 at 14:00 Docusate Sodium (Colace Liquid Cup) 100 mg BID PO Last administered on 08:20; Admin Dose 100 MG; Start 12/11/16 at 21:00 Silver Sulfadiazine (Thermazene 1% 25 Gm) 1 applic DAILY TOP Last administered on 12/12/16 14:22; Admin Dose 1 APPLIC; Start 12/12/16 at 13:00 Doxycycline Hyclate (Vibramycin) 100 mg BID PO ; Start 12/12/16 at 21:00 Metronidazole (Flagyl) 500 mg Q8 PO Last administered on 12/12/16 14:19; Admin Dose 500 MG; Start 12/12/16 at 14:00 Levofloxacin (Levaquin) 500 mg DAILY@06 PO ; Start 12/13/16 at 06:00 Assessment/Plan Chief Complaint/Hosp Course Assessment 1. Hypoxemic respiratory failure 2. Loculated right pleural effusion, status post thoracentesis, discussed with radiology. Discussed with radiology not enough effusion for pigtail catheter. 3. Evidence of recurrent aspiration on swallow evaluation. 4. Leukocytosis secondary to above Plan 1. Continue current antibiotics, ID recommendations 2. Monitor chest x-ray and pleural effusions. 3. Aspiration precautions 4. Speech therapy evaluation and recommendations. More conservative approach may be appropriate given his advanced age and poor functional status Problems: RACHID ALAN MD, [facility] Dec 12, 2016 15:30
[2016-12-12] MEDS ORDERED: DOXYCYCLINE 100 MG TAB PO SCH (21:00)
[2016-12-12 23:58] VITALS: BP 100/59; RESP 19
[2016-12-13] MEDS ORDERED: LEVOFLOXACIN 500 MG TAB PO SCH (06:00)
== END 2016-12-12 23:15 | DRG 193 ==
LOC: E/R 12:51 → PP2 12:55 → OBSVTOIN 12-06 10:07
PROVIDERS: ADMIT Internal Medicine; ATTEND Internal Medicine
PROC: 0W993ZX Drainage of Right Pleural Cavity, Percutaneous Approach, Diagnostic (ICD-10-PCS; principal; 2016-12-09)
DX: J18.9 Pneumonia, unspecified organism (principal); J96.91 Respiratory failure, unspecified with hypoxia; G93.40 Encephalopathy, unspecified; J90 Pleural effusion, not elsewhere classified; R13.10 Dysphagia, unspecified; M81.0 Age-related osteoporosis without current pathological fracture; Y95 Nosocomial condition; F03.90 Unspecified dementia, unspecified severity, without behavioral disturbance, psychotic disturbance, mood disturbance, and anxiety; E87.6 Hypokalemia; R53.81 Other malaise; D72.829 Elevated white blood cell count, unspecified; Z66 Do not resuscitate; Z85.46 Personal history of malignant neoplasm of prostate; Z90.79 Acquired absence of other genital organ(s); Z85.828 Personal history of other malignant neoplasm of skin
CPT/HCPCS: 32555; 36415; 70450; 71010; 71250; 74176; 74230; 80048; 80053; 80202; 82945; 83615; 83690; 83735; 83880; 84100; 84145; 84157; 84484; 85025; 85610; 85730; 87070; 87102; 87116; 88104; 88305; 89051; 92526; 92610; 92611; 93005; 93306; 93970; 96361; 96374; 96375; 97110; 97116; 97163; 97530; G0378; J1630; J1650; J1940; J2185; J2270; J2405; J3370; J7030; J7050

== ENCOUNTER 2016-12-12 18:34 | Inpatient (IN) | payer MEDICARE, OTHER ==
[~2016-12-12] VITALS: Ht 165.1 cm; Wt 54.7 kg
[~2016-12-12 18:34] MED LIST: FURO40TA4 PO
[2016-12-12 23:40] VITALS: Ht 165.1 cm; Wt 54.7 kg
[2016-12-13 02:00] VITALS: BP 103/58; RESP 18
[2016-12-13] MEDS ORDERED: ACETAMINOPHEN 650MG/20.3ML CUP PO PRN (02:00)
[2016-12-13] MEDS: metroNIDAZOLE 500 MG TAB PO SCH ×3 (06:30→21:30)
[2016-12-13] MEDS: LEVOFLOXACIN 500 MG TAB PO SCH (06:30)
[2016-12-13 06:47] LABS: ADD UMIC YES; UR ASCORBIC ACID 20 mg/dL (NEGATIVE); UR BILIRUBIN (Dip) NEGATIVE (NEGATIVE); UR BLOOD (Dip) NEGATIVE (NEGATIVE); UR CLARITY CLEAR (CLEAR); UR COLOR YELLOW (YELLOW); UR GLUCOSE (Dip) NEGATIVE (NEGATIVE); UR KETONES (Dip) NEGATIVE (NEGATIVE); UR LEUKOCYTE ESTERASE (Dip) NEGATIVE Leu/ul (NEGATIVE); UR NITRITE (Dip) NEGATIVE (NEGATIVE); UR RBC 0 /HPF (0-5); UR SPECIFIC GRAVITY (Dip) 1.021 (1.003-1.030); UR TOTAL PROTEIN (Dip) 1+ mg/dl (NEGATIVE); UR UROBILINOGEN (Dip) 2+ mg/dL (NEGATIVE)
[2016-12-13 07:11] LABS: BASOPHILS % 0.2 % (0.0-2.0); EOSINOPHILS # 0.2 10^3/ul (0.0-0.5); EOSINOPHILS % 1.5 % (0.0-7.0); HEMATOCRIT 35.8 % (42.0-52.0); HEMOGLOBIN 11.5 g/dl (14.0-18.0); LYMPHOCYTES # 1.7 10^3/ul (0.8-2.9); MEAN CORPUSCULAR HEMOGLOBIN 29.9 pg (29.0-33.0); MEAN CORPUSCULAR HGB CONC 32.1 g/dl (32.0-37.0); MEAN CORPUSCULAR VOLUME 93.2 fl (82.0-101.0); MEAN PLATELET VOLUME 9.1 fl (7.4-10.4); MONOCYTE # 0.8 10^3/ul (0.3-0.9); MONOCYTES % 5.9 % (0.0-11.0); NEUTROPHIL # 10.2 10^3/ul (1.6-7.5); NEUTROPHILS % 78.8 % (39.0-77.0); PLATELET COUNT 592 10^3/UL (140-415); RED BLOOD COUNT 3.84 10^6/ul (4.70-6.10); RED CELL DISTRIBUTION WIDTH 12.9 % (11.5-14.5)
[2016-12-13 07:30] VITALS: BP 108/60; RESP 18
[2016-12-13 07:40] LABS: ALBUMIN 2.7 g/dl (3.3-4.9); ALBUMIN/GLOBULIN RATIO 0.69; BILIRUBIN,INDIRECT 0.3 mg/dl (0-1.1); BILIRUBIN,TOTAL 0.3 mg/dl (0.2-1.3); CALCIUM 8.3 mg/dl (8.4-10.2); CREATININE 0.79 mg/dl (0.61-1.24); TOTAL PROTEIN 6.6 g/dl (6.1-8.1)
[2016-12-13] MEDS: DOCUSATE SODIUM 10 MG/ML (10ML CUP) PO SCH ×2 (08:05→21:30)
[2016-12-13] MEDS: QUETIAPINE 25 MG TAB PO SCH ×2 (08:05→21:30)
[2016-12-13] MEDS: DOXYCYCLINE 100 MG TAB PO SCH ×2 (08:05→21:30)
[2016-12-13] MEDS: ENOXAPARIN 40 MG/0.4 ML SYG SC SCH (08:06)
--- NOTE | 2016-12-13 09:46 | HP ---
Date/Time of Note Date/Time of Note DATE: 12/13/16 TIME: 09:29 Assessment/Plan VTE Prophylaxis VTE Prophylaxis Intervention: LMWH Lines/Catheters Urinary Cath still in place: No Assessment/Plan Assessment/Plan ASSESSMENT: 1. Acute metabolic encephalopathy 2. Impaired mobility, gait and balance. 3. Impaired self-care and activities of daily living. 4. Impaired cognition 5. Dementia 6. Anemia. 7. Dysphagia 8. Status post hypoxemic respiratory failure due to right pleural effusion, status post thoracentesis, and aspiration pneumonia 9. Leukocytosis 10. Mitral valve prolapse 11. History of prostate carcinoma status post prostatectomy 12. Osteoporosis 13. History of right knee ACL/MCL tear PLAN: 1. The patient will be admitted for inpatient comprehensive interdisciplinary rehabilitation to address the impairments and medical conditions listed above while assessing equipment needs and compensatory strategies with coordinated interdisciplinary services that will include physical, occupational, speech therapies and close monitoring and treatment with 24-hour rehabilitation nursing. The patient is anticipated to tolerate 3 hours daily for at least 5 out of the 7 days per week of therapies. 2. Begin physical therapy for bed mobility, transfers, balance training, gait training with assistive devices as needed. 3. Begin occupational therapy for activities of daily living, functional transfers, adaptive equipment evaluation, and patient education. 4. Begin speech therapy for cognitive training and swallowing training for dysphagia. Continue current modified diet per ST. Per chart documentation, patient and family declined recommendation for alternate means of nutrition with risk of further aspiration. 5. Rehabilitation nursing to provide the patient education regarding current medications as they relate to medical illness. Monitor pain, monitor bowel and bladder programs and administer such programs and reinforce them with therapies. 6. Dr. Goncalves and associates follow for management of medical comorbidities. 7. For hypoxemic respiratory failure due to right pleural effusion, the patient is status post thoracentesis and with aspiration pneumonia, remains on antibiotics per pulmonary and internal medicine. Monitor pulmonary status, currently stable. 8. For anemia, continue to monitor hemoglobin and hematocrit. 9. For leukocytosis secondary to above, improving. Continue to monitor WBCs trend and monitor temp curve. 10. For DVT prophylaxis he is on lovenox. REHABILITATION GOALS: Improve bed mobility, transfers, gait and self-care activities of daily living to supervision level with assistive devices and adaptive equipment as needed. ESTIMATED LENGTH OF STAY: Approximately 14 days. His case will be discussed with a weekly interdisciplinary conference. Anticipated disposition is to home with family support. PROGNOSIS: At the current time, this inpatient hospital rehabilitation stay is medically necessary to achieve important health and functional goals. The patient requires frequent physician visits, 24-hour rehabilitation nursing and a coordinated intensive rehabilitation program as described above to address complex medical, nursing and rehabilitation needs. The patient has a fair prognosis for benefiting from this program and returning to home and community. REHABILITATION PHYSICIAN POST-ADMISSION ASSESSMENT REVIEW: I have had the opportunity to examine the patient within 24 hours of admission and have reviewed the preadmission assessment and find it consistent with my examination and evaluation of the patient. I confirm that this patient is appropriate for admission and treatment in this inpatient rehabilitation hospital, needs intense interdisciplinary rehabilitation care and is expected to achieve meaningful goals within a reasonable period of time that are consistent with the planned discharge disposition as noted above. 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 Work up done include CT head which showed no acute intracranial findings. CT Abdomen was unremarkable. CXR showed right sided pleural effusion with pneumonia. The patient was followed by pulmonary team and underwent thoracentesis. The patient was also started on antibiotics. The patient was evaluated bys speech therapy and underwent MBSS which showed silent aspiration even with puree and nectar thick and recommended alternate means of obtaining nutrition but patient and family declined feeding tube, understanding risks including further aspiration in the future, and patient was placed on puree diet with nectar thick liquids. The patient was evaluated by neurology and felt to have acute encephalopathy superimposed on dementia. The patient did work with physical and occupational therapies and noted to have a significant functional decline. Currently requiring max assist for his basic mobility and self care ADLs. Due to ongoing medical comorbidities requiring close physician follow up and significant functional decline the patient was thought to benefit from acute inpatient rehabilitation. ROS REVIEW OF SYSTEMS: CONSTITUTIONAL: No fevers, chills. No night sweats. EYES: No new visual changes. No pain. EARS, NOSE AND THROAT: Significant for dysphagia. RESPIRATORY: Denies shortness of breath. Has occasional cough. CARDIOVASCULAR: No chest pain, no palpitations. GENITOURINARY: Denies hematuria or dysuria. GASTROINTESTINAL: Denies nausea or vomiting. No constipation reported per nursing. NEUROLOGICAL: Denies headache. No new paresthesias. MUSCULOSKELETAL: Denies joint pain. No muscle spasms. SKIN: Denies itching. PSYCHIATRIC: Denies current anxiety or depression. REVIEW OF SYSTEMS: Otherwise negative. PMH/Family/Social Past Medical History Medical History: cancer (prostate cancer status post prostatectomy, basal cell carcinoma of skin removed), other (baseline cognitive impairments with dementia , history of right knee ACL/MCL tear, osteoporosis, mitral valve prolapse) Past Surgical History As above Family History Significant Family History: no pertinent family hx Social History Prior level of function: Patient unable to provide history. Per chart, he lives with in one story home, 1 step to living room with railing, 5 steps out to backdoor. Reported to be fairly independent for ADLs and mobility. Used walker for community ambulation. Alcohol Use: none Smoking Status: Never smoker Drug Use: none Exam/Review of Systems Vital Signs Vitals Vital Signs Date Time Temp Pulse Resp B/P Pulse Ox O2 Delivery O2 Flow Rate FiO2 12/13/16 07:30 98.6 77 18 108/60 93 Intake and Output 12/12/16 12/12/16 12/13/16 15:00 23:00 07:00 Intake Total 400 ml Output Total 100 ml Balance 300 ml Exam Exam PHYSICAL EXAMINATION: VITAL SIGNS: Reviewed in electronic medical records. GENERAL: The patient is elderly, frail appearing, awake, alert, in no acute distress. HEENT: Normocephalic, atraumatic. Mucous membranes moist. Sclera anicteric. Extraocular muscles appear grossly intact though with limited cooperation. NECK: Supple, nontender. Trachea appears midline. RESPIRATORY: Poor effort. Diminished breath sounds bilaterally. No wheezing. Respirations are nonlabored without accessory muscle use. CARDIOVASCULAR: Regular rate and rhythm, audible S1, S2. No significant edema. ABDOMEN: Soft, nontender. Bowel sounds are present. No masses palpated. EXTREMITIES: Calves are soft and nontender. No cyanosis. SKIN: Scattered bruising to his extremities. Blanchable redness bilateral heels , sacrococcyx region. Redness noted RUE where previously had peripheral IV line. Rash noted to his back. PSYCHIATRIC: Affect and mood are appropriate. No agitation. NEUROLOGICAL/MUSCULOSKELETAL: The patient is awake, alert, in no acute distress , oriented to self, [facility] and year 2016 but did not know month, follows some simple commands but requires repetition and cuing. Speech intelligibility is decreased. Active range of motion in the bilateral upper and lower extremities within functional limits. No joint effusions or redness. Difficulty cooperating with individualized muscle strength testing, but overall has at least antigravity strength bilateral upper and lower extremity strength. Sensation intact to light touch. No increase in tone. Labs Result Diagram: 12/13/1655812/13/1659 Medications Medications Current Medications Metronidazole (Flagyl) 500 mg Q8 PO Last administered on 12/13/16 06:30; Admin Dose 500 MG; Start 12/13/16 at 06:00 Levofloxacin (Levaquin) 500 mg DAILY@06 PO Last administered on 12/13/16 06:30 ; Admin Dose 500 MG; Start 12/13/16 at 06:00 Doxycycline Hyclate (Vibramycin) 100 mg BID PO Last administered on 12/13/16 08:05; Admin Dose 100 MG; Start 12/13/16 at 09:00 Acetaminophen (Tylenol Liquid) 650 mg Q4H PRN PO PAIN AND OR ELEVATED TEMP; Start 12/13/16 at 02:00 Docusate Sodium (Colace Liquid Cup) 100 mg BID PO Last administered on 08:05; Admin Dose 100 MG; Start 12/13/16 at 09:00 Enoxaparin Sodium (Lovenox) 40 mg DAILY SC Last administered on 12/13/16 08:06 ; Admin Dose 40 MG; Start 12/13/16 at 09:00 Magnesium Hydroxide (Milk Of Mag) 30 ml DAILY PRN PO CONSTIPATION; Start at 02:00 Quetiapine Fumarate (Seroquel) 12.5 mg BID PO Last administered on 12/13/16 08 :05; Admin Dose 12.5 MG; Start 12/13/16 at 09:00 ADEN WILCOX Dec 13, 2016 09:45
--- NOTE | 2016-12-13 13:33 | CONS ---
Date/Time of Note Date/Time of Note DATE: 12/13/16 TIME: 13:33 Assessment/Plan Assessment/Plan Additional Assessment/Plan 0. weakness from hospitalization and debility 1. Dementia . near baseline per , no e/o confusion, monitor 2. Right pleural effusion. R pneumonia . loculated effusion . s/p thoracentesis, continue monitoring status for aspiration 3. Peripheral edema , he has a normal EF on echocardiogram and negative venous dopplers . monitor for edema 4. Debility. in ARU 5. Will advance diet as tolerated. 6. DNAR status - confirmed with , no feeding tube Consultation Date/Type/Reason Admit Date/Time Dec 12, 2016 at 23:20 Constitutional: improved, no complaints Eyes: no complaints Respiratory: no complaints Cardiovascular: no complaints Skin: no complaints Past Medical History PAST MEDICAL HISTORY: 1. Remarkable for prostate CA, status post total prostatectomy. 2. Basal cell CA of the skin removed. 3. Mid systolic click. 4. Torn cartilage ligament in the right knee, status post ACL, MCL. 5. Mitral valve prolapse. 6. Osteoporosis. 7. Dementia. ALLERGIES: PENICILLIN AND SULFA. PAST SURGICAL HISTORY: Prostatectomy for prostate cancer in 1995. FAMILY HISTORY: 1. Father . 2. Mother . SOCIAL HISTORY: The patient does not smoke. Does not drink alcohol. Medical History: cancer (prostate cancer status post prostatectomy, basal cell carcinoma of skin removed), other (baseline cognitive impairments with dementia , history of right knee ACL/MCL ligament tear, osteoporosis, mitral valve prolapse) Social History Alcohol Use: none Smoking Status: Never smoker Drug Use: none Exam/Review of Systems Vital Signs Vitals Vital Signs Date Time Temp Pulse Resp B/P Pulse Ox O2 Delivery O2 Flow Rate FiO2 12/13/16 07:30 98.6 77 18 108/60 93 Intake and Output 12/12/16 12/12/16 12/13/16 15:00 23:00 07:00 Intake Total 400 ml Output Total 100 ml Balance 300 ml Exam Constitutional: alert, oriented Psych: no complaints Head: atraumatic, normocephalic Eyes: EOMI, nl lids Respiratory: congested cough, crackles/rales Cardiovascular: regular rate and rhythm Gastrointestinal: nl liver, spleen, soft Neurological: NUTRITION ASSISTANT II-XII intact Results Result Diagram: 12/13/16 0559 12/13/16 0559 Results 24 hrs Laboratory Tests Test 12/13/16 05:59 12/13/16 06:30 White Blood Count 13.0 H Red Blood Count 3.84 L Hemoglobin 11.5 L Hematocrit 35.8 L Mean Corpuscular Volume 93.2 Mean Corpuscular Hemoglobin 29.9 Mean Corpuscular Hemoglobin Concent 32.1 Red Cell Distribution Width 12.9 Platelet Count 592 H Mean Platelet Volume 9.1 Neutrophils % 78.8 H Lymphocytes % 13.0 L Monocytes % 5.9 Eosinophils % 1.5 Basophils % 0.2 Nucleated Red Blood Cells % 0.0 Neutrophils # 10.2 H Lymphocytes # 1.7 Monocytes # 0.8 Eosinophils # 0.2 Basophils # 0.0 Nucleated Red Blood Cells # 0.0 Sodium Level 145 H Potassium Level 4.0 Chloride Level 103 Carbon Dioxide Level 31 Anion Gap 15 Blood Urea Nitrogen 20 Creatinine 0.79 Glucose Level 88 Calcium Level 8.3 L Total Bilirubin 0.3 Direct Bilirubin 0.00 Indirect Bilirubin 0.3 Aspartate Amino Transf (AST/SGOT) 45 Alanine Aminotransferase (ALT/SGPT) 39 Alkaline Phosphatase 144 H Total Protein 6.6 Albumin 2.7 L Globulin 3.90 H Albumin/Globulin Ratio 0.69 Urine Color YELLOW Urine Clarity CLEAR Urine pH 8.0 Urine Specific [place] 1.021 Urine Ketones NEGATIVE Urine Nitrite NEGATIVE Urine Bilirubin NEGATIVE Urine Urobilinogen 2+ H Urine Leukocyte Esterase NEGATIVE Urine Microscopic RBC 0 Urine Microscopic WBC 2 Urine Hemoglobin NEGATIVE Urine Glucose NEGATIVE Urine Total Protein 1+ H Medications Medications Current Medications Metronidazole (Flagyl) 500 mg Q8 PO Last administered on 12/13/16 06:30; Admin Dose 500 MG; Start 12/13/16 at 06:00 Levofloxacin (Levaquin) 500 mg DAILY@06 PO Last administered on 12/13/16 06:30 ; Admin Dose 500 MG; Start 12/13/16 at 06:00 Doxycycline Hyclate (Vibramycin) 100 mg BID PO Last administered on 12/13/16 08:05; Admin Dose 100 MG; Start 12/13/16 at 09:00 Acetaminophen (Tylenol Liquid) 650 mg Q4H PRN PO PAIN AND OR ELEVATED TEMP; Start 12/13/16 at 02:00 Docusate Sodium (Colace Liquid Cup) 100 mg BID PO Last administered on 08:05; Admin Dose 100 MG; Start 12/13/16 at 09:00 Enoxaparin Sodium (Lovenox) 40 mg DAILY SC Last administered on 12/13/16 08:06 ; Admin Dose 40 MG; Start 12/13/16 at 09:00 Magnesium Hydroxide (Milk Of Mag) 30 ml DAILY PRN PO CONSTIPATION; Start at 02:00 Quetiapine Fumarate (Seroquel) 12.5 mg BID PO Last administered on 12/13/16 08 :05; Admin Dose 12.5 MG; Start 12/13/16 at 09:00 ANNE CROFT MD Dec 13, 2016 13:33
[2016-12-13 19:39] VITALS: BP 99/56; RESP 21
[2016-12-14 04:21] VITALS: BP 103/64; RESP 19
[2016-12-14] MEDS: LEVOFLOXACIN 500 MG TAB PO SCH (06:46)
[2016-12-14] MEDS: metroNIDAZOLE 500 MG TAB PO SCH ×3 (06:46→21:38)
[2016-12-14 08:00] VITALS: BP 101/57; PULSE 82; RESP 18
[2016-12-14] MEDS: QUETIAPINE 25 MG TAB PO SCH ×2 (08:25→21:37)
[2016-12-14] MEDS: DOCUSATE SODIUM 10 MG/ML (10ML CUP) PO SCH ×2 (08:25→21:36)
[2016-12-14] MEDS: DOXYCYCLINE 100 MG TAB PO SCH ×2 (08:25→21:36)
[2016-12-14] MEDS: ENOXAPARIN 40 MG/0.4 ML SYG SC SCH (08:26)
--- NOTE | 2016-12-14 09:55 | PN ---
Date/Time of Note Date/Time of Note DATE: 12/14/16 TIME: 09:49 Assessment/Plan VTE Prophylaxis VTE Prophylaxis Intervention: LMWH Lines/Catheters Urinary Cath still in place: No Assessment/Plan Assessment/Plan 1. Acute metabolic encephalopathy superimposed on baseline cognitive impairments with dementia, with impaired mobility/gait/ADLs. Continue PT/OT/ST. Moderate assist for bed mobility and transfers. 2. Dysphagia. Patient and family have declined feeding tube, on modified diet per ST. Continue ST. 3. Status post hypoxemic respiratory failure due to right loculated pleural effusion status post thoracentesis and pneumonia. Continue to monitor pulmonary status, stable. Continue medical management per internal medicine. 4. Anemia. Monitor hemoglobin/hematocrit, stable on last labs. 5. Mitral valve prolapse 6. History of prostate carcinoma status post prostatectomy 7. Osteoporosis 8. History of right knee ACL/MCL tear 9. Hypernatremia. Improved, monitor. Internal medicine managing. Subjective 24 Hr Interval Summary Free Text/Dictation Rehab progress note Subjective: Patient without acute complaints. Nursing reports no acute overnight events. ROS: Denies headache, no chest pain, no shortness of breath, no abdominal pain, no chills, no vomiting. Exam/Review of Systems Vital Signs Vitals Vital Signs Date Time Temp Pulse Resp B/P Pulse Ox O2 Delivery O2 Flow Rate FiO2 12/14/16 04:21 98.0 53 19 103/64 94 Intake and Output 12/13/16 12/13/16 12/14/16 15:00 23:00 07:00 Intake Total 520 ml Output Total 150 ml 151 ml Balance 370 ml -151 ml Exam General: Awake, alert, no acute distress, frail appearing CV: Regular rate, s1s2 Lungs: Respirations are nonlabored. Poor effort, diminished breath sounds bilaterally. No wheezing Abdomen soft, nontender Extremities without cyanosis, no new swelling Neuro: No focal changes. Moves all extremities symmetrically. Decreased speech intelligibility. Results Result Diagram: 12/13/16 0559 12/13/16558 Medications Medications Current Medications Metronidazole (Flagyl) 500 mg Q8 PO Last administered on 12/14/16 06:46; Admin Dose 500 MG; Start 12/13/16 at 06:00 Levofloxacin (Levaquin) 500 mg DAILY@06 PO Last administered on 12/14/16 06:46 ; Admin Dose 500 MG; Start 12/13/16 at 06:00 Doxycycline Hyclate (Vibramycin) 100 mg BID PO Last administered on 12/14/16 08:25; Admin Dose 100 MG; Start 12/13/16 at 09:00 Acetaminophen (Tylenol Liquid) 650 mg Q4H PRN PO PAIN AND OR ELEVATED TEMP; Start 12/13/16 at 02:00 Docusate Sodium (Colace Liquid Cup) 100 mg BID PO Last administered on 08:25; Admin Dose 100 MG; Start 12/13/16 at 09:00 Enoxaparin Sodium (Lovenox) 40 mg DAILY SC Last administered on 12/14/16 08:26 ; Admin Dose 40 MG; Start 12/13/16 at 09:00 Magnesium Hydroxide (Milk Of Mag) 30 ml DAILY PRN PO CONSTIPATION; Start at 02:00 Quetiapine Fumarate (Seroquel) 12.5 mg BID PO Last administered on 12/14/16 08 :25; Admin Dose 12.5 MG; Start 12/13/16 at 09:00 ADEN WILCOX Dec 14, 2016 09:55
[2016-12-14 20:00] VITALS: BP 113/66; RESP 18
[2016-12-15 02:00] VITALS: BP 103/55; RESP 18
[2016-12-15] MEDS: LEVOFLOXACIN 500 MG TAB PO SCH (06:47)
[2016-12-15] MEDS: metroNIDAZOLE 500 MG TAB PO SCH ×3 (06:47→21:43)
[2016-12-15 07:30] VITALS: BP 106/64; RESP 20
--- NOTE | 2016-12-15 08:26 | CONS ---
Date/Time of Note Date/Time of Note DATE: 12/15/16 TIME: 08:23 Assessment/Plan Assessment/Plan Chief Complaint/Hosp Course 1. He is now on the acute rehab unit. He is overall looking much better. He is sitting up and feeding himself. He is having a fluent conversation with me. 2. Right lower lobe pneumonia with loculated pleural effusion , he is on 3 antibiotics for this infection. 3. Dementia with resolving superimposed encephalopathy 4. Malnutrition Plan: We will continue current comprehensive rehabilitation program. Problems: Consultation Date/Type/Reason Admit Date/Time Dec 12, 2016 at 23:20 Initial Consult Date 24 HR Interval Summary Free Text/Dictation He is sitting up eating breakfast himself. He is much more awake and alert. He is having a fluent conversation with me. Constitutional: improved, no complaints Exam/Review of Systems Vital Signs Vitals Vital Signs Date Time Temp Pulse Resp B/P Pulse Ox O2 Delivery O2 Flow Rate FiO2 12/15/16 02:00 98.4 88 18 103/55 94 12/14/16 08:00 Room Air Intake and Output 12/14/16 12/14/16 12/15/16 15:00 23:00 07:00 Intake Total 480 ml Output Total 150 ml Balance -150 ml 480 ml Exam Constitutional: alert Psych: confusion Respiratory: clear to auscultation, diminished breath sounds Cardiovascular: regular rate and rhythm Gastrointestinal: soft Musculoskeletal: nl extremities to inspection Results Result Diagram: 12/13/16 0559 12/13/16 0559 Results 24 hrs Laboratory Tests Test 12/14/16 10:33 Lab Scanned Report REFERENCE LAB Medications Medications Current Medications Metronidazole (Flagyl) 500 mg Q8 PO Last administered on 12/15/16 06:47; Admin Dose 500 MG; Start 12/13/16 at 06:00 Levofloxacin (Levaquin) 500 mg DAILY@06 PO Last administered on 12/15/16 06:47 ; Admin Dose 500 MG; Start 12/13/16 at 06:00 Doxycycline Hyclate (Vibramycin) 100 mg BID PO Last administered on 12/14/16 21:36; Admin Dose 100 MG; Start 12/13/16 at 09:00 Acetaminophen (Tylenol Liquid) 650 mg Q4H PRN PO PAIN AND OR ELEVATED TEMP; Start 8/12/17 at 02:00 Docusate Sodium (Colace Liquid Cup) 100 mg BID PO Last administered on 21:36; Admin Dose 100 MG; Start 12/13/16 at 09:00 Enoxaparin Sodium (Lovenox) 40 mg DAILY SC Last administered on 12/14/16 08:26 ; Admin Dose 40 MG; Start 12/13/16 at 09:00 Magnesium Hydroxide (Milk Of Mag) 30 ml DAILY PRN PO CONSTIPATION; Start at 02:00 Quetiapine Fumarate (Seroquel) 12.5 mg BID PO Last administered on 12/14/16 21 :37; Admin Dose 12.5 MG; Start 12/13/16 at 09:00 CAYDEN LAI MD Dec 15, 2016 08:26
[2016-12-15] MEDS: DOCUSATE SODIUM 10 MG/ML (10ML CUP) PO SCH ×2 (08:33→21:43)
[2016-12-15] MEDS: QUETIAPINE 25 MG TAB PO SCH ×2 (08:33→21:43)
[2016-12-15] MEDS: DOXYCYCLINE 100 MG TAB PO SCH ×2 (08:33→21:43)
[2016-12-15] MEDS: ENOXAPARIN 40 MG/0.4 ML SYG SC SCH (08:34)
--- NOTE | 2016-12-15 13:30 | CONS ---
Date/Time of Note Date/Time of Note DATE: 12/15/16 TIME: 13:30 Consult Date/Type/Reason Admit Date/Time Dec 12, 2016 at 23:20 Initial Consult Date Objective Vital Signs Date Time Temp Pulse Resp B/P Pulse Ox O2 Delivery O2 Flow Rate FiO2 12/15/16 07:30 98.4 89 20 106/64 96 12/14/16 08:00 Room Air Intake and Output 12/14/16 12/14/16 12/15/16 15:00 23:00 07:00 Intake Total 480 ml Output Total 150 ml Balance -150 ml 480 ml INTERDISCIPLINARY TEAM CONFERENCE BOWEL- Cont BLADDER-Cont SKIN- intact OT- DRESSING-mod BATHING-mod TOILETING-mod PT- BED MOBILITY-min TRANSFERS-min AMBULATION-min 150 feet SPEECH- COGNITION-max DYPHAGIA-puree diet A/P- Interdisciplinary team conference held today. Please see interdisciplinary sheet. Working toward d.c. on 12/25 with post discharge follow up of physical therapy, occupational therapy. Results/Medications Result Diagram: 12/13/16 0559 12/13/16 0559 Medications Current Medications Metronidazole (Flagyl) 500 mg Q8 PO Last administered on 12/15/16 13:18; Admin Dose 500 MG; Start 12/13/16 at 06:00 Levofloxacin (Levaquin) 500 mg DAILY@06 PO Last administered on 12/15/16 06:47 ; Admin Dose 500 MG; Start 12/13/16 at 06:00 Doxycycline Hyclate (Vibramycin) 100 mg BID PO Last administered on 12/15/16 08:33; Admin Dose 100 MG; Start 12/13/16 at 09:00 Acetaminophen (Tylenol Liquid) 650 mg Q4H PRN PO PAIN AND OR ELEVATED TEMP; Start 12/13/16 at 02:00 Docusate Sodium (Colace Liquid Cup) 100 mg BID PO Last administered on 08:33; Admin Dose 100 MG; Start 12/13/16 at 09:00 Enoxaparin Sodium (Lovenox) 40 mg DAILY SC Last administered on 12/15/16 08:34 ; Admin Dose 40 MG; Start 12/13/16 at 09:00 Magnesium Hydroxide (Milk Of Mag) 30 ml DAILY PRN PO CONSTIPATION; Start at 02:00 Quetiapine Fumarate (Seroquel) 12.5 mg BID PO Last administered on 12/15/16t 08 :33; Admin Dose 12.5 MG; Start 12/13/16 at 09:00 MAYITO BARBER MD Dec 15, 2016 13:30
[2016-12-15 14:00] VITALS: BP 111/66; RESP 18
[2016-12-15 20:00] VITALS: BP 118/65; RESP 18
[2016-12-16 02:00] VITALS: BP 114/68; RESP 18
[2016-12-16] MEDS: LEVOFLOXACIN 500 MG TAB PO SCH (06:38)
[2016-12-16] MEDS: metroNIDAZOLE 500 MG TAB PO SCH ×3 (06:38→22:12)
[2016-12-16 07:54] VITALS: BP 100/65; RESP 18
[2016-12-16] MEDS: DOXYCYCLINE 100 MG TAB PO SCH ×2 (08:50→20:28)
[2016-12-16] MEDS: QUETIAPINE 25 MG TAB PO SCH ×2 (08:50→20:28)
[2016-12-16] MEDS: DOCUSATE SODIUM 10 MG/ML (10ML CUP) PO SCH ×2 (08:50→20:28)
[2016-12-16] MEDS: ENOXAPARIN 40 MG/0.4 ML SYG SC SCH (09:03)
--- NOTE | 2016-12-16 12:40 | CONS ---
Date/Time of Note Date/Time of Note DATE: 12/16/16 TIME: 12:40 Consult Date/Type/Reason Admit Date/Time Dec 12, 2016 at 23:20 Subjective Comfortable Objective pulm-cta mod assist Vital Signs Date Time Temp Pulse Resp B/P Pulse Ox O2 Delivery O2 Flow Rate FiO2 12/16/16 07:54 98.0 82 18 100/65 95 12/14/16 08:00 Room Air Intake and Output 12/15/16 12/15/16 12/16/16 15:00 23:00 07:00 Intake Total 320 ml Output Total 3 ml 2 ml Balance -3 ml 318 ml Results/Medications Result Diagram: 12/13/16 0559 12/13/16 0559 Medications Current Medications Metronidazole (Flagyl) 500 mg Q8 PO Last administered on 12/16/16 06:38; Admin Dose 500 MG; Start 12/13/16 at 06:00 Levofloxacin (Levaquin) 500 mg DAILY@06 PO Last administered on 12/16/16 06:38 ; Admin Dose 500 MG; Start 12/13/16 at 06:00 Doxycycline Hyclate (Vibramycin) 100 mg BID PO Last administered on 12/16/16 08:50; Admin Dose 100 MG; Start 12/13/16 at 09:00 Acetaminophen (Tylenol Liquid) 650 mg Q4H PRN PO PAIN AND OR ELEVATED TEMP; Start 12/13/16 at 02:00 Docusate Sodium (Colace Liquid Cup) 100 mg BID PO Last administered on 08:50; Admin Dose 100 MG; Start 12/13/16 at 09:00 Enoxaparin Sodium (Lovenox) 40 mg DAILY SC Last administered on 12/16/16 09:03 ; Admin Dose 40 MG; Start 12/13/16 at 09:00 Magnesium Hydroxide (Milk Of Mag) 30 ml DAILY PRN PO CONSTIPATION; Start at 02:00 Quetiapine Fumarate (Seroquel) 12.5 mg BID PO Last administered on 12/16/16 08 :50; Admin Dose 12.5 MG; Start 12/13/16 at 09:00 Assessment/Plan Additional Assessment/Plan Rehab- Encephalopathy superimposed on dementia ; R knee ACL/MCL tear Tolerating rehab program anemia Dysphagia-speech therapy Pulm- s/p resp fail/pleural effusion MVP prostate CA-s.p prostatectomy; MAYITO BARBER MD Dec 16, 2016 12:40
[2016-12-16] MEDS ORDERED: VITAMIN A & D 5 GM OINT PACKET TOP ONE (12:53)
--- NOTE | 2016-12-16 13:22 | CONS ---
Date/Time of Note Date/Time of Note DATE: 12/16/16 TIME: 13:18 Assessment/Plan Assessment/Plan Chief Complaint/Hosp Course 1. He is now on the acute rehab unit. He is more confused today than he was yesterday . 2. Right lower lobe pneumonia with loculated pleural effusion , he is on 3 antibiotics for this infection. 3. Dementia with resolving superimposed encephalopathy 4. Malnutrition 5. DNR status Plan: We will continue current comprehensive rehabilitation program. Problems: Consultation Date/Type/Reason Admit Date/Time Dec 12, 2016 at 23:20 24 HR Interval Summary Free Text/Dictation He is awake and talking ; however , it is difficult to understand what he is saying . Exam/Review of Systems Vital Signs Vitals Vital Signs Date Time Temp Pulse Resp B/P Pulse Ox O2 Delivery O2 Flow Rate FiO2 12/16/16 07:54 98.0 82 18 100/65 95 12/14/16 08:00 Room Air Intake and Output 12/15/16 12/15/16 12/16/16 15:00 23:00 07:00 Intake Total 320 ml Output Total 3 ml 2 ml Balance -3 ml 318 ml Exam Constitutional: alert, frail Psych: confusion Respiratory: clear to auscultation, diminished breath sounds Cardiovascular: regular rate and rhythm Gastrointestinal: non-tender, soft Musculoskeletal: nl extremities to inspection Results Result Diagram: 12/13/16 0559 12/13/16 0559 Medications Medications Current Medications Metronidazole (Flagyl) 500 mg Q8 PO Last administered on 12/16/16 06:38; Admin Dose 500 MG; Start 12/13/16 at 06:00 Levofloxacin (Levaquin) 500 mg DAILY@06 PO Last administered on 12/16/16 06:38 ; Admin Dose 500 MG; Start 12/13/16 at 06:00 Doxycycline Hyclate (Vibramycin) 100 mg BID PO Last administered on 12/16/16 08:50; Admin Dose 100 MG; Start 12/13/16 at 09:00 Acetaminophen (Tylenol Liquid) 650 mg Q4H PRN PO PAIN AND OR ELEVATED TEMP; Start 12/13/16 at 02:00 Docusate Sodium (Colace Liquid Cup) 100 mg BID PO Last administered on 08:50; Admin Dose 100 MG; Start 8/12/17 at 09:00 Enoxaparin Sodium (Lovenox) 40 mg DAILY SC Last administered on 12/16/16 09:03 ; Admin Dose 40 MG; Start 12/13/16 at 09:00 Magnesium Hydroxide (Milk Of Mag) 30 ml DAILY PRN PO CONSTIPATION; Start at 02:00 Quetiapine Fumarate (Seroquel) 12.5 mg BID PO Last administered on 12/16/16 08 :50; Admin Dose 12.5 MG; Start 12/13/16 at 09:00 CAYDEN LAI MD Dec 16, 2016 13:22
[2016-12-16 20:00] VITALS: BP 107/59; RESP 18
[2016-12-17 02:00] VITALS: BP 121/70; RESP 18
[2016-12-17] MEDS: LEVOFLOXACIN 500 MG TAB PO SCH (05:49)
[2016-12-17] MEDS: metroNIDAZOLE 500 MG TAB PO SCH (05:49)
[2016-12-17 07:31] VITALS: BP 101/58; RESP 18
[2016-12-17] MEDS: DOXYCYCLINE 100 MG TAB PO SCH (08:56)
[2016-12-17] MEDS: ENOXAPARIN 40 MG/0.4 ML SYG SC SCH (08:56)
[2016-12-17] MEDS: DOCUSATE SODIUM 10 MG/ML (10ML CUP) PO SCH ×2 (08:56→21:00)
[2016-12-17] MEDS: QUETIAPINE 25 MG TAB PO SCH ×2 (08:57→21:00)
--- NOTE | 2016-12-17 10:15 | CONS ---
Date/Time of Note Date/Time of Note DATE: 12/17/16 TIME: 10:14 Consult Date/Type/Reason Admit Date/Time Dec 12, 2016 at 23:20 Subjective Following commands Objective pulm-cta mod assist ambulation 40 feet Vital Signs Date Time Temp Pulse Resp B/P Pulse Ox O2 Delivery O2 Flow Rate FiO2 12/17/16 07:31 98.2 85 18 101/58 94 12/14/16 08:00 Room Air Intake and Output 12/16/16 12/16/16 12/17/16 15:00 23:00 07:00 Intake Total 720 ml 360 ml 380 ml Balance 720 ml 360 ml 380 ml Results/Medications Result Diagram: 12/13/1659 12/13/1659 Medications Current Medications Metronidazole (Flagyl) 500 mg Q8 PO Last administered on 12/17/16 05:49; Admin Dose 500 MG; Start 12/13/16 at 06:00 Levofloxacin (Levaquin) 500 mg DAILY@06 PO Last administered on 12/17/16 05:49 ; Admin Dose 500 MG; Start 12/13/16 at 06:00 Doxycycline Hyclate (Vibramycin) 100 mg BID PO Last administered on 12/17/16 08:56; Admin Dose 100 MG; Start 12/13/16 at 09:00 Acetaminophen (Tylenol Liquid) 650 mg Q4H PRN PO PAIN AND OR ELEVATED TEMP; Start 12/13/16 at 02:00 Docusate Sodium (Colace Liquid Cup) 100 mg BID PO Last administered on 08:56; Admin Dose 100 MG; Start 12/13/16 at 09:00 Enoxaparin Sodium (Lovenox) 40 mg DAILY SC Last administered on 12/17/16 08:56 ; Admin Dose 40 MG; Start 12/13/16 at 09:00 Magnesium Hydroxide (Milk Of Mag) 30 ml DAILY PRN PO CONSTIPATION; Start at 02:00 Quetiapine Fumarate (Seroquel) 12.5 mg BID PO Last administered on 12/17/16 08 :57; Admin Dose 12.5 MG; Start 12/13/16 at 09:00 Assessment/Plan Additional Assessment/Plan Rehab- Encephalopathy superimposed on dementia ; R knee ACL/MCL tear Continue rehab program, patient progressing with program anemia Dysphagia-speech therapy Pulm- s/p resp fail/pleural effusion MVP prostate CA-s.p prostatectomy MAYITO BARBER MD Dec 17, 2016 10:15
--- NOTE | 2016-12-17 13:28 | CONS ---
Date/Time of Note Date/Time of Note DATE: 12/17/16 TIME: 13:18 Assessment/Plan Assessment/Plan Chief Complaint/Hosp Course 1. He is now on the acute rehab unit. He is less confused today than he was yesterday . 2. Right lower lobe pneumonia with loculated pleural effusion , he is on 3 antibiotics for this infection. I am going to stop antibiotics today . 3. Dementia with resolving superimposed encephalopathy 4. Malnutrition 5. DNR status Plan: We will continue current comprehensive rehabilitation program.I spoke to his and she is willing to take him home with help . gas plant worker will start the process . Problems: Consultation Date/Type/Reason Admit Date/Time Dec 12, 2016 at 23:20 24 HR Interval Summary Free Text/Dictation He is awake and responsive . He is confused . Constitutional: disoriented Exam/Review of Systems Vital Signs Vitals Vital Signs Date Time Temp Pulse Resp B/P Pulse Ox O2 Delivery O2 Flow Rate FiO2 12/17/16 07:31 98.2 85 18 101/58 94 12/14/16 08:00 Room Air Intake and Output 12/16/16 12/16/16 12/17/16 15:00 23:00 07:00 Intake Total 720 ml 360 ml 380 ml Balance 720 ml 360 ml 380 ml Exam Constitutional: alert Psych: confusion Respiratory: clear to auscultation, diminished breath sounds Cardiovascular: regular rate and rhythm Gastrointestinal: non-tender, soft Musculoskeletal: nl extremities to inspection Neurological: lethargic Results Result Diagram: 12/13/16 0559 12/13/16 0559 Medications Medications Current Medications Metronidazole (Flagyl) 500 mg Q8 PO Last administered on 12/17/16 05:49; Admin Dose 500 MG; Start 12/13/16 at 06:00 Levofloxacin (Levaquin) 500 mg DAILY@06 PO Last administered on 12/17/16 05:49 ; Admin Dose 500 MG; Start 12/13/16 at 06:00 Doxycycline Hyclate (Vibramycin) 100 mg BID PO Last administered on 12/17/16 08:56; Admin Dose 100 MG; Start 12/13/16 at 09:00 Acetaminophen (Tylenol Liquid) 650 mg Q4H PRN PO PAIN AND OR ELEVATED TEMP; Start 12/13/16 at 02:00 Docusate Sodium (Colace Liquid Cup) 100 mg BID PO Last administered on 08:56; Admin Dose 100 MG; Start 12/13/16 at 09:00 Enoxaparin Sodium (Lovenox) 40 mg DAILY SC Last administered on 12/17/16 08:56 ; Admin Dose 40 MG; Start 12/13/16 at 09:00 Magnesium Hydroxide (Milk Of Mag) 30 ml DAILY PRN PO CONSTIPATION; Start at 02:00 Quetiapine Fumarate (Seroquel) 12.5 mg BID PO Last administered on 12/17/16 08 :57; Admin Dose 12.5 MG; Start 12/13/16 at 09:00 CAYDEN LAI MD Dec 17, 2016 13:27
[2016-12-17 20:00] VITALS: BP 107/63; RESP 18
[2016-12-18 02:00] VITALS: BP 112/68; RESP 18
[2016-12-18 07:30] VITALS: BP 108/59; RESP 20
[2016-12-18] MEDS: ENOXAPARIN 40 MG/0.4 ML SYG SC SCH (08:39)
[2016-12-18] MEDS: QUETIAPINE 25 MG TAB PO SCH ×2 (08:39→21:43)
[2016-12-18] MEDS: DOCUSATE SODIUM 10 MG/ML (10ML CUP) PO SCH ×2 (08:40→21:43)
--- NOTE | 2016-12-18 09:23 | CONS ---
Date/Time of Note Date/Time of Note DATE: 12/18/16 TIME: 09:19 Assessment/Plan Assessment/Plan Chief Complaint/Hosp Course 1. He is now on the acute rehab unit. He seems more alert , but still confused . 2. Right lower lobe pneumonia with loculated pleural effusion . He has completed a course of antibiotics . 3. Dementia with resolving superimposed encephalopathy 4. Malnutrition 5. DNR status Plan: We will continue current comprehensive rehabilitation program.I spoke to his and she is willing to take him home with help . dairy farm worker will start the process . Problems: Consultation Date/Type/Reason Admit Date/Time Dec 12, 2016 at 23:20 24 HR Interval Summary Free Text/Dictation He is sitting up in a Wheelchair . Physical therapy is working with him for gait training .He is awake and responsive . Confused . Exam/Review of Systems Vital Signs Vitals Vital Signs Date Time Temp Pulse Resp B/P Pulse Ox O2 Delivery O2 Flow Rate FiO2 12/18/16 02:00 98.6 9 18 112/68 93 12/14/16 08:00 Room Air Intake and Output 12/17/16 12/17/16 12/18/16 14:59 22:59 06:59 Intake Total 720 ml 840 ml 360 ml Output Total 200 ml Balance 720 ml 840 ml 160 ml Exam Constitutional: alert, frail Psych: confusion Respiratory: clear to auscultation, diminished breath sounds Cardiovascular: regular rate and rhythm Gastrointestinal: soft Musculoskeletal: nl extremities to inspection Medications Medications Current Medications Acetaminophen (Tylenol Liquid) 650 mg Q4H PRN PO PAIN AND OR ELEVATED TEMP; Start 12/13/16 at 02:00 Docusate Sodium (Colace Liquid Cup) 100 mg BID PO Last administered on 08:40; Admin Dose 100 MG; Start 12/13/16 at 09:00 Enoxaparin Sodium (Lovenox) 40 mg DAILY SC Last administered on 12/18/16 08:39 ; Admin Dose 40 MG; Start 12/13/16 at 09:00 Magnesium Hydroxide (Milk Of Mag) 30 ml DAILY PRN PO CONSTIPATION; Start at 02:00 Quetiapine Fumarate (Seroquel) 12.5 mg BID PO Last administered on 12/18/16 08 :39; Admin Dose 12.5 MG; Start 12/13/16 at 09:00 CAYDEN LAI MD Dec 18, 2016 09:23
--- NOTE | 2016-12-18 10:04 | CONS ---
DATE OF ADMISSION: 12/12/2016 DATE OF CONSULTATION: 12/17/2016 TYPE OF CONSULTATION: Psychological. REFERRING PHYSICIAN: Porfirio Mckay MD REASON FOR CONSULTATION: This consultation was requested by Dr. Porfirio Mckay in order to evaluate the cognitive and emotional function of this patient related to his present medical condition. HISTORY OF PRESENT ILLNESS: The patient is an 86-year-old male. Patient presented with a history of significant cognitive impairments with dementia. Patient reported by his had been actually functioning fairly stable at home prior to a period of time where he became very, very confused and unable to function adequately. Patient was seen to problem possibly have an acute encephalopathy superimposed on his dementia. The patient is motivated to get better and does want to return home after discharge. FAMILY/SOCIAL HISTORY: The patient lives with his in a home in [place]. The patient's was present with the patient's permission. Patient does want to return home after discharge. MEDICATION: Patient is currently on Seroquel 12.5 mg b.i.d. SUBSTANCE USE: The patient reports that he does not smoke. Patient does drink some wine with dinner with his , usually has no more than 2 glasses. MENTAL STATUS EXAMINATION: Appearance: Patient was seen in bed. He is of average height and weight. Patient is right-handed. Behavior: The patient was cooperative during the consultation. The patient did attempt to answer all questions presented to him by the interviewer. Patient spoke in a very low voice. It was very difficult to understand him. Mood and affect: The patient's mood appears to be depressed. Affect does appear to be slightly anxious. Perception: The patient reports no hallucinations or delusions. The patient was alert to person and place, but not exactly to situation and time. Memory and cognition: Patient's memory and cognition appear to be impaired. He did have difficulty recalling recent and remote events. He was able to name the hospital. Patient could not say the month and the year. Patient was unable to say who the director of mechanical engineering is, the governor of the state, or the mayor of the [facility]. He did come close; however, because for the president he said "front." For the governor, he said "[place]." The patient was unable to spell world backwards. The patient was able to do 1 serial 7 subtraction from 100 but then made an error and could go no further. Overall, the patient's memory appears to have some impairment and is likely resulting from his continuing dementia and the acute encephalopathy. Intelligence: Intelligence would appear to fall in the average range when he was functioning well. Insight: Poor. Judgment: Poor. Thought content: Patient is concerned about his present medical condition. The patient is fearful that he will not be able to recover. The patient does want to return home with his after discharge. The patient's is aware that they will need some help after discharge. DISCUSSION: Patient may be able to benefit from some cognitive/behavioral psychotherapy while he is on the unit. The psychotherapy would focus on his underlying mood, as well as some of his cognitive disorganization. 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 FO6.90: Unspecified dementia without behavioral disturbance. Thank you very much, Dr. Mckay, for referring this individual. Please do not hesitate to call if you have any additional questions. Dictated By: Ruy Tran, PHD /yvonne/kathryn /Document#: [id number]
[2016-12-18] MEDS: SILVER SULFADIAZINE 1% 25 GM CR TOP SCH (11:48)
--- NOTE | 2016-12-18 13:22 | CONS ---
Date/Time of Note Date/Time of Note DATE: 12/18/16 TIME: 13:22 Consult Date/Type/Reason Admit Date/Time Dec 12, 2016 at 23:20 Subjective at bedside. Objective pulm-cta abd soft min/mod ambulation 75 feet Vital Signs Date Time Temp Pulse Resp B/P Pulse Ox O2 Delivery O2 Flow Rate FiO2 12/18/16 07:30 97.5 90 20 108/59 95 12/14/16 08:00 Room Air Intake and Output 12/17/16 12/17/16 12/18/16 15:00 23:00 07:00 Intake Total 720 ml 840 ml 360 ml Output Total 200 ml Balance 720 ml 840 ml 160 ml Results/Medications Medications Current Medications Acetaminophen (Tylenol Liquid) 650 mg Q4H PRN PO PAIN AND OR ELEVATED TEMP; Start 12/13/16 at 02:00 Docusate Sodium (Colace Liquid Cup) 100 mg BID PO Last administered on 08:40; Admin Dose 100 MG; Start 12/13/16 at 09:00 Enoxaparin Sodium (Lovenox) 40 mg DAILY SC Last administered on 12/18/16 08:39 ; Admin Dose 40 MG; Start 12/13/16 at 09:00 Magnesium Hydroxide (Milk Of Mag) 30 ml DAILY PRN PO CONSTIPATION; Start at 02:00 Quetiapine Fumarate (Seroquel) 12.5 mg BID PO Last administered on 12/18/16 08 :39; Admin Dose 12.5 MG; Start 12/13/16 at 09:00 Silver Sulfadiazine (Thermazene 1% 25 Gm) 1 applic DAILY TOP Last administered on 12/18/16 11:48; Admin Dose 1 APPLIC; Start 12/18/16 at 11:00 Assessment/Plan Additional Assessment/Plan Rehab- Encephalopathy superimposed on dementia ; R knee ACL/MCL tear Overall improving with rehab program anemia Dysphagia-speech therapy Pulm- s/p resp fail/pleural effusion MVP prostate CA-s.p prostatectomy MAYITO BARBER MD Dec 18, 2016 13:22
[2016-12-18 14:00] VITALS: BP 94/54; RESP 20
[2016-12-18 19:30] VITALS: BP 105/61; RESP 19
[2016-12-19 02:02] VITALS: BP 116/66; RESP 18
[2016-12-19 07:30] VITALS: BP 109/63; RESP 18
--- NOTE | 2016-12-19 09:20 | CONS ---
Date/Time of Note Date/Time of Note DATE: 12/19/16 TIME: 09:20 Consult Date/Type/Reason Admit Date/Time Dec 12, 2016 at 23:20 Subjective Comfortable Objective pulm-cta abd-soft min assist 100 feet Vital Signs Date Time Temp Pulse Resp B/P Pulse Ox O2 Delivery O2 Flow Rate FiO2 12/19/16 07:30 97.9 83 18 109/63 96 Intake and Output 12/18/16 12/18/16 12/19/16 15:00 23:00 07:00 Intake Total 500 ml 420 ml 100 ml Output Total 200 ml Balance 500 ml 420 ml -100 ml Results/Medications Medications Current Medications Acetaminophen (Tylenol Liquid) 650 mg Q4H PRN PO PAIN AND OR ELEVATED TEMP; Start 12/13/16 at 02:00 Docusate Sodium (Colace Liquid Cup) 100 mg BID PO Last administered on 21:43; Admin Dose 100 MG; Start 12/13/16 at 09:00 Enoxaparin Sodium (Lovenox) 40 mg DAILY SC Last administered on 12/18/16 08:39 ; Admin Dose 40 MG; Start 12/13/16 at 09:00 Magnesium Hydroxide (Milk Of Mag) 30 ml DAILY PRN PO CONSTIPATION; Start at 02:00 Quetiapine Fumarate (Seroquel) 12.5 mg BID PO Last administered on 12/18/16 21 :43; Admin Dose 12.5 MG; Start 12/13/16 at 09:00 Silver Sulfadiazine (Thermazene 1% 25 Gm) 1 applic DAILY TOP Last administered on 12/18/16 11:48; Admin Dose 1 APPLIC; Start 12/18/16 at 11:00 Assessment/Plan Additional Assessment/Plan Rehab- Encephalopathy superimposed on dementia ; R knee ACL/MCL tear Tolerating rehab program anemia Dysphagia-speech therapy Pulm- s/p resp fail/pleural effusion MVP prostate CA-s.p prostatectomy; MAYITO BARBER MD Dec 19, 2016 09:20
[2016-12-19] MEDS: QUETIAPINE 25 MG TAB PO SCH ×2 (09:21→20:01)
[2016-12-19] MEDS: ENOXAPARIN 40 MG/0.4 ML SYG SC SCH (09:22)
[2016-12-19] MEDS: SILVER SULFADIAZINE 1% 25 GM CR TOP SCH (09:22)
[2016-12-19] MEDS: DOCUSATE SODIUM 10 MG/ML (10ML CUP) PO SCH ×2 (09:22→20:01)
--- NOTE | 2016-12-19 10:08 | CONS ---
Date/Time of Note Date/Time of Note DATE: 12/19/16 TIME: 10:05 Assessment/Plan Assessment/Plan Chief Complaint/Hosp Course 1. He is now on the acute rehab unit. He seems more alert , but still confused .He is working with speech therapy and is doing well . 2. Right lower lobe pneumonia with loculated pleural effusion . He has completed a course of antibiotics . 3. Dementia with resolving superimposed encephalopathy 4. Malnutrition 5. DNR status Plan: We will continue current comprehensive rehabilitation program.I spoke to his and she is willing to take him home with help . asbestos hazard abatement worker will start the process . Problems: Consultation Date/Type/Reason Admit Date/Time Dec 12, 2016 at 23:20 24 HR Interval Summary Free Text/Dictation He is awake and alert . He is sitting up in wheelchair and is working with speech therapy . Constitutional: disoriented Exam/Review of Systems Vital Signs Vitals Vital Signs Date Time Temp Pulse Resp B/P Pulse Ox O2 Delivery O2 Flow Rate FiO2 12/19/16 07:30 97.9 83 18 109/63 96 Intake and Output 12/18/16 12/18/16 12/19/16 15:00 23:00 07:00 Intake Total 500 ml 420 ml 100 ml Output Total 200 ml Balance 500 ml 420 ml -100 ml Exam Constitutional: alert, frail Psych: confusion Head: normocephalic Respiratory: clear to auscultation, diminished breath sounds Cardiovascular: regular rate and rhythm Gastrointestinal: non-tender, soft Musculoskeletal: nl extremities to inspection Medications Medications Current Medications Acetaminophen (Tylenol Liquid) 650 mg Q4H PRN PO PAIN AND OR ELEVATED TEMP; Start 12/13/16 at 02:00 Docusate Sodium (Colace Liquid Cup) 100 mg BID PO Last administered on 09:22; Admin Dose 100 MG; Start 12/13/16 at 09:00 Enoxaparin Sodium (Lovenox) 40 mg DAILY SC Last administered on 12/19/16 09:22 ; Admin Dose 40 MG; Start 12/13/16 at 09:00 Magnesium Hydroxide (Milk Of Mag) 30 ml DAILY PRN PO CONSTIPATION; Start at 02:00 Quetiapine Fumarate (Seroquel) 12.5 mg BID PO Last administered on 12/19/16 09 :21; Admin Dose 12.5 MG; Start 12/13/16 at 09:00 Silver Sulfadiazine (Thermazene 1% 25 Gm) 1 applic DAILY TOP Last administered on 12/19/16t 09:22; Admin Dose 1 APPLIC; Start 12/18/16 at 11:00 CAYDEN LAI MD Dec 19, 2016 10:08
[2016-12-19 14:00] VITALS: BP 108/65; RESP 18
[2016-12-19 20:00] VITALS: BP 115/68; RESP 18
[2016-12-20 02:00] VITALS: BP 110/67; RESP 18
[2016-12-20 08:00] VITALS: BP 114/73; RESP 18
[2016-12-20] MEDS: ENOXAPARIN 40 MG/0.4 ML SYG SC SCH (08:32)
[2016-12-20] MEDS: QUETIAPINE 25 MG TAB PO SCH ×2 (08:34→20:47)
[2016-12-20] MEDS: DOCUSATE SODIUM 10 MG/ML (10ML CUP) PO SCH ×2 (08:34→20:46)
[2016-12-20] MEDS: SILVER SULFADIAZINE 1% 25 GM CR TOP SCH (08:35)
--- NOTE | 2016-12-20 11:18 | CONS ---
Date/Time of Note Date/Time of Note DATE: 12/20/16 TIME: :17 Consult Date/Type/Reason Admit Date/Time Dec 12, 2016 at 23:20 Subjective Comfortable Objective pulm-cta min assist ambulation 100 feet Vital Signs Date Time Temp Pulse Resp B/P Pulse Ox O2 Delivery O2 Flow Rate FiO2 12/20/16 08:00 98.5 83 18 114/73 95 Intake and Output 12/19/16 12/19/16 12/20/16 15:00 23:00 07:00 Intake Total 320 ml 400 ml Output Total 1 ml Balance 319 ml 400 ml Results/Medications Medications Current Medications Acetaminophen (Tylenol Liquid) 650 mg Q4H PRN PO PAIN AND OR ELEVATED TEMP; Start 12/13/16 at 02:00 Docusate Sodium (Colace Liquid Cup) 100 mg BID PO Last administered on 08:34; Admin Dose 100 MG; Start 12/13/16 at 09:00 Enoxaparin Sodium (Lovenox) 40 mg DAILY SC Last administered on 12/20/16 08:32 ; Admin Dose 40 MG; Start 12/13/16 at 09:00 Magnesium Hydroxide (Milk Of Mag) 30 ml DAILY PRN PO CONSTIPATION; Start at 02:00 Quetiapine Fumarate (Seroquel) 12.5 mg BID PO Last administered on 12/20/16 08 :34; Admin Dose 12.5 MG; Start 12/13/16 at 09:00 Silver Sulfadiazine (Thermazene 1% 25 Gm) 1 applic DAILY TOP Last administered on 12/20/16 08:35; Admin Dose 1 APPLIC; Start 12/18/16 at 11:00 Assessment/Plan Additional Assessment/Plan Rehab- Encephalopathy superimposed on dementia ; R knee ACL/MCL tear Continue rehab program anemia Dysphagia-speech therapy Pulm- s/p resp fail/pleural effusion MVP prostate CA-s.p prostatectomy MAYITO BARBER MD Dec 20, 2016 11:18
--- NOTE | 2016-12-20 14:00 | CONS ---
Date/Time of Note Date/Time of Note DATE: 12/20/16 TIME: 13:59 Assessment/Plan Assessment/Plan Chief Complaint/Hosp Course 1. He is now on the acute rehab unit. He seems more alert , but still confused . His is with him and she says that he ate all of his lunch today. He was up walking with physical therapy. 2. Right lower lobe pneumonia with loculated pleural effusion . He has completed a course of antibiotics . 3. Dementia with resolving superimposed encephalopathy 4. Malnutrition 5. DNR status Plan: We will continue current comprehensive rehabilitation program.I spoke to his and she is willing to take him home with help . fabric worker fitter will start the process . Problems: Consultation Date/Type/Reason Admit Date/Time Dec 12, 2016 at 23:20 24 HR Interval Summary Free Text/Dictation He is in bed sitting up. His is with him. He is talking; however, he is confused. Constitutional: disoriented Exam/Review of Systems Vital Signs Vitals Vital Signs Date Time Temp Pulse Resp B/P Pulse Ox O2 Delivery O2 Flow Rate FiO2 12/20/16 08:00 98.5 83 18 114/73 95 Intake and Output 12/19/16 12/19/16 12/20/16 15:00 23:00 07:00 Intake Total 320 ml 400 ml Output Total 1 ml Balance 319 ml 400 ml Exam Constitutional: alert, frail Psych: confusion Respiratory: clear to auscultation, diminished breath sounds Cardiovascular: regular rate and rhythm Gastrointestinal: soft Musculoskeletal: nl extremities to inspection Medications Medications Current Medications Acetaminophen (Tylenol Liquid) 650 mg Q4H PRN PO PAIN AND OR ELEVATED TEMP; Start 12/13/16 at 02:00 Docusate Sodium (Colace Liquid Cup) 100 mg BID PO Last administered on 08:34; Admin Dose 100 MG; Start 12/13/16 at 09:00 Enoxaparin Sodium (Lovenox) 40 mg DAILY SC Last administered on 12/20/16 08:32 ; Admin Dose 40 MG; Start 12/13/16 at 09:00 Magnesium Hydroxide (Milk Of Mag) 30 ml DAILY PRN PO CONSTIPATION; Start at 02:00 Quetiapine Fumarate (Seroquel) 12.5 mg BID PO Last administered on 12/20/16 08 :34; Admin Dose 12.5 MG; Start 12/13/16 at 09:00 Silver Sulfadiazine (Thermazene 1% 25 Gm) 1 applic DAILY TOP Last administered on 12/20/16t 08:35; Admin Dose 1 APPLIC; Start 12/18/16 at 11:00 CAYDEN LAI MD Dec 20, 2016 14:00
[2016-12-20 20:00] VITALS: BP 110/69; RESP 18
[2016-12-21 02:00] VITALS: BP 115/72; RESP 18
[2016-12-21 07:50] LABS: BASOPHILS % 0.4 % (0.0-2.0); EOSINOPHILS # 0.2 10^3/ul (0.0-0.5); EOSINOPHILS % 2.5 % (0.0-7.0); HEMATOCRIT 36.5 % (42.0-52.0); HEMOGLOBIN 11.9 g/dl (14.0-18.0); LYMPHOCYTES # 2.1 10^3/ul (0.8-2.9); LYMPHOCYTES % 28.3 % (15.0-51.0); MEAN CORPUSCULAR HEMOGLOBIN 29.8 pg (29.0-33.0); MEAN CORPUSCULAR HGB CONC 32.6 g/dl (32.0-37.0); MEAN CORPUSCULAR VOLUME 91.3 fl (82.0-101.0); MONOCYTE # 0.7 10^3/ul (0.3-0.9); MONOCYTES % 8.9 % (0.0-11.0); NEUTROPHILS % 59.4 % (39.0-77.0); PLATELET COUNT 589 10^3/UL (140-415); RED CELL DISTRIBUTION WIDTH 13.8 % (11.5-14.5); WHITE BLOOD COUNT 7.3 10^3/ul (4.8-10.8)
[2016-12-21 08:00] VITALS: BP 118/78; PULSE 78; RESP 18
[2016-12-21 08:14] LABS: CREATININE 0.76 mg/dl (0.61-1.24)
[2016-12-21] MEDS: SILVER SULFADIAZINE 1% 25 GM CR TOP SCH (08:41)
[2016-12-21] MEDS: QUETIAPINE 25 MG TAB PO SCH ×2 (08:42→21:36)
[2016-12-21] MEDS: ENOXAPARIN 40 MG/0.4 ML SYG SC SCH (08:42)
[2016-12-21] MEDS: DOCUSATE SODIUM 10 MG/ML (10ML CUP) PO SCH ×2 (08:43→21:36)
[2016-12-21 20:00] VITALS: BP 107/65; RESP 18
[2016-12-22 02:00] VITALS: BP 109/62; RESP 18
[2016-12-22 07:30] VITALS: BP 112/67; RESP 18
[2016-12-22] MEDS: QUETIAPINE 25 MG TAB PO SCH ×2 (09:04→20:41)
[2016-12-22] MEDS: ENOXAPARIN 40 MG/0.4 ML SYG SC SCH (09:05)
[2016-12-22] MEDS: DOCUSATE SODIUM 10 MG/ML (10ML CUP) PO SCH ×2 (09:06→20:40)
[2016-12-22] MEDS: SILVER SULFADIAZINE 1% 25 GM CR TOP SCH (09:06)
--- NOTE | 2016-12-22 09:21 | CONS ---
Date/Time of Note Date/Time of Note DATE: 12/22/16 TIME: 09:20 Consult Date/Type/Reason Admit Date/Time Dec 12, 2016 at 23:20 Objective Vital Signs Date Time Temp Pulse Resp B/P Pulse Ox O2 Delivery O2 Flow Rate FiO2 12/22/16 07:30 97.8 85 18 112/67 96 12/21/16 08:00 Room Air Intake and Output 12/21/16 12/21/16 12/22/16 15:00 23:00 07:00 Intake Total 720 ml Balance 720 ml Exam INTERDISCIPLINARY TEAM CONFERENCE BOWEL- Cont BLADDER-Cont SKIN-healing OT- DRESSING-min assist BATHING-min assist TOILETING-min assist PT- BED MOBILITY-min assist TRANSFERS-min assist AMBULATION-min assist 100 feet SPEECH- COGNITION-max assist DYPHAGIA-significant aspiration risk A/P- Interdisciplinary team conference held today. Please see interdisciplinary sheet. Working toward d.c. on 12/25 with post discharge follow up of physical therapy, occupational therapy. Results/Medications Result Diagram: 12/21/16 0638 12/21/16 0638 Medications Current Medications Acetaminophen (Tylenol Liquid) 650 mg Q4H PRN PO PAIN AND OR ELEVATED TEMP; Start 12/13/16 at 02:00 Docusate Sodium (Colace Liquid Cup) 100 mg BID PO Last administered on 09:06; Admin Dose 100 MG; Start 12/13/16 at 09:00 Enoxaparin Sodium (Lovenox) 40 mg DAILY SC Last administered on 12/22/16 09:05 ; Admin Dose 40 MG; Start 12/13/16 at 09:00 Magnesium Hydroxide (Milk Of Mag) 30 ml DAILY PRN PO CONSTIPATION; Start at 02:00 Quetiapine Fumarate (Seroquel) 12.5 mg BID PO Last administered on 12/22/16 09 :04; Admin Dose 12.5 MG; Start 12/13/16 at 09:00 Silver Sulfadiazine (Thermazene 1% 25 Gm) 1 applic DAILY TOP Last administered on 12/22/16 09:06; Admin Dose 1 APPLIC; Start 12/18/16 at 11:00 MAYITO BARBER MD Dec 22, 2016 09:21
--- NOTE | 2016-12-22 11:22 | CONS ---
Date/Time of Note Date/Time of Note DATE: 12/22/16 TIME: 11:19 Assessment/Plan Assessment/Plan Chief Complaint/Hosp Course 1. He is now on the acute rehab unit. He is more lethargic this morning. He has been participating with physical therapy. Tentatively will be transferred to home in several days. 2. Right lower lobe pneumonia with loculated pleural effusion . He has completed a course of antibiotics . 3. Dementia with resolving superimposed encephalopathy 4. Malnutrition 5. DNR status Plan: We will continue current comprehensive rehabilitation program.I spoke to his and she is willing to take him home with help . health workers will start the process . Problems: Consultation Date/Type/Reason Admit Date/Time Dec 12, 2016 at 23:20 24 HR Interval Summary Free Text/Dictation He is sleeping. He does arouse to verbal stimuli. Constitutional: disoriented, no complaints Exam/Review of Systems Vital Signs Vitals Vital Signs Date Time Temp Pulse Resp B/P Pulse Ox O2 Delivery O2 Flow Rate FiO2 12/22/16 07:30 97.8 85 18 112/67 96 12/21/16 08:00 Room Air Intake and Output 12/21/16 12/21/16 12/22/16 15:00 23:00 07:00 Intake Total 720 ml Balance 720 ml Exam Constitutional: alert, frail Psych: confusion Respiratory: clear to auscultation, diminished breath sounds Cardiovascular: regular rate and rhythm Gastrointestinal: non-tender, soft Musculoskeletal: nl extremities to inspection Neurological: lethargic Results Result Diagram: 12/21/16 0638 12/21/16 0638 Medications Medications Current Medications Acetaminophen (Tylenol Liquid) 650 mg Q4H PRN PO PAIN AND OR ELEVATED TEMP; Start 12/13/16 at 02:00 Docusate Sodium (Colace Liquid Cup) 100 mg BID PO Last administered on 09:06; Admin Dose 100 MG; Start 12/13/16 at 09:00 Enoxaparin Sodium (Lovenox) 40 mg DAILY SC Last administered on 12/22/16 09:05 ; Admin Dose 40 MG; Start 12/13/16 at 09:00 Magnesium Hydroxide (Milk Of Mag) 30 ml DAILY PRN PO CONSTIPATION; Start at 02:00 Quetiapine Fumarate (Seroquel) 12.5 mg BID PO Last administered on 12/22/16 09 :04; Admin Dose 12.5 MG; Start 12/13/16 at 09:00 Silver Sulfadiazine (Thermazene 1% 25 Gm) 1 applic DAILY TOP Last administered on 12/22/16 09:06; Admin Dose 1 APPLIC; Start 12/18/16 at 11:00 CAYDEN LAI MD Dec 22, 2016 11:22
[2016-12-22 13:23] LABS: BASOPHILS % 0.4 % (0.0-2.0); EOSINOPHILS # 0.2 10^3/ul (0.0-0.5); EOSINOPHILS % 1.7 % (0.0-7.0); HEMATOCRIT 39.5 % (42.0-52.0); HEMOGLOBIN 12.4 g/dl (14.0-18.0); LYMPHOCYTES # 2.1 10^3/ul (0.8-2.9); LYMPHOCYTES % 22.9 % (15.0-51.0); MEAN CORPUSCULAR HEMOGLOBIN 29.1 pg (29.0-33.0); MEAN CORPUSCULAR HGB CONC 31.4 g/dl (32.0-37.0); MEAN CORPUSCULAR VOLUME 92.7 fl (82.0-101.0); MEAN PLATELET VOLUME 8.7 fl (7.4-10.4); MONOCYTE # 0.6 10^3/ul (0.3-0.9); MONOCYTES % 6.4 % (0.0-11.0); RED BLOOD COUNT 4.26 10^6/ul (4.70-6.10); RED CELL DISTRIBUTION WIDTH 14.2 % (11.5-14.5); WHITE BLOOD COUNT 9.1 10^3/ul (4.8-10.8)
[2016-12-22 13:40] LABS: ALBUMIN 3.2 g/dl (3.3-4.9); ALBUMIN/GLOBULIN RATIO 0.78; BILIRUBIN,INDIRECT 0.2 mg/dl (0-1.1); BILIRUBIN,TOTAL 0.2 mg/dl (0.2-1.3); CALCIUM 9.2 mg/dl (8.4-10.2); CREATININE 0.88 mg/dl (0.61-1.24); POTASSIUM 4.6 mmol/L (3.5-5.1); TOTAL PROTEIN 7.3 g/dl (6.1-8.1)
[2016-12-22 14:00] VITALS: BP 90/59; RESP 20
[2016-12-22 14:24] LABS: PLATELET COUNT 621 10^3/UL (140-415)
--- NOTE | 2016-12-22 14:56 | RADRPT ---
PROCEDURE: XR Chest. CLINICAL INDICATION: Cough TECHNIQUE: Single frontal view of the chest was obtained COMPARISON: 12/11/2016 FINDINGS: See impression. IMPRESSION: Stable loculated right pleural effusion, which is moderate in size. Stable associated basilar atele ctasis in the mid and lower right lung zones. Superimposed infection to be determined clinically. The left lung is clear. Otherwise, no convincing interval change. RPTAT: EE Yani Montero Physician Date Time Electronically viewed and signed by Yani Montero Physician on 12/22/2016 14:56 /
[2016-12-22 20:00] VITALS: BP 98/58; RESP 18
[2016-12-23 02:00] VITALS: BP 111/70; RESP 18
[2016-12-23 07:44] VITALS: BP 118/57; RESP 18
[2016-12-23 08:04] LABS: BASOPHIL # 0.1 10^3/ul (0.0-0.1); BASOPHILS % 0.8 % (0.0-2.0); EOSINOPHILS # 0.3 10^3/ul (0.0-0.5); EOSINOPHILS % 3.6 % (0.0-7.0); HEMATOCRIT 36.8 % (42.0-52.0); HEMOGLOBIN 11.6 g/dl (14.0-18.0); LYMPHOCYTES # 2.1 10^3/ul (0.8-2.9); MEAN CORPUSCULAR HEMOGLOBIN 29.1 pg (29.0-33.0); MEAN CORPUSCULAR HGB CONC 31.5 g/dl (32.0-37.0); MEAN CORPUSCULAR VOLUME 92.2 fl (82.0-101.0); MEAN PLATELET VOLUME 9.2 fl (7.4-10.4); MONOCYTE # 0.8 10^3/ul (0.3-0.9); MONOCYTES % 10.1 % (0.0-11.0); NEUTROPHILS % 57.9 % (39.0-77.0); PLATELET COUNT 555 10^3/UL (140-415); RED BLOOD COUNT 3.99 10^6/ul (4.70-6.10); RED CELL DISTRIBUTION WIDTH 14.2 % (11.5-14.5); WHITE BLOOD COUNT 7.9 10^3/ul (4.8-10.8)
--- NOTE | 2016-12-23 08:49 | CONS ---
Date/Time of Note Date/Time of Note DATE: 12/23/16 TIME: 08:45 Assessment/Plan Assessment/Plan Chief Complaint/Hosp Course 1. He is now on the acute rehab unit. He is more lethargic this morning. He has been participating with physical therapy. Tentatively will be transferred to home in several days. 2. Right lower lobe pneumonia with loculated pleural effusion . He has completed a course of antibiotics . 3. Dementia with resolving superimposed encephalopathy 4. Malnutrition 5. DNR status Plan: We will continue current comprehensive rehabilitation program.I spoke to his and she is willing to take him home with help . flume worker will start the process . I did speak to his daughter Sami yesterday. We brought up the possibility of him going home on hospice. I will discuss this with the family and his today to see if that is something they want to pursue. Problems: Consultation Date/Type/Reason Admit Date/Time Dec 12, 2016 at 23:20 24 HR Interval Summary Free Text/Dictation He is awake this morning. He is talking. He was able to eat his breakfast. Constitutional: no complaints Exam/Review of Systems Vital Signs Vitals Vital Signs Date Time Temp Pulse Resp B/P Pulse Ox O2 Delivery O2 Flow Rate FiO2 12/23/16 07:44 98.6 83 18 118/57 96 12/21/16 08:00 Room Air Exam Constitutional: alert, frail, oriented ENMT: nl external ears & nose, nl lips & teeth, nl nasal mucosa & septum Respiratory: clear to auscultation, diminished breath sounds Cardiovascular: regular rate and rhythm Gastrointestinal: non-tender, soft Musculoskeletal: nl extremities to inspection Results Result Diagram: 12/23/16 0644 12/22/16 1304 Results 24 hrs Laboratory Tests Test 12/22/16 13:04 12/23/16 06:44 White Blood Count 9.1 # 7.9 Red Blood Count 4.26 L 3.99 L Hemoglobin 12.4 L 11.6 L Hematocrit 39.5 L 36.8 L Mean Corpuscular Volume 92.7 92.2 Mean Corpuscular Hemoglobin 29.1 29.1 Mean Corpuscular Hemoglobin Concent 31.4 L 31.5 L Red Cell Distribution Width 14.2 14.2 Platelet Count 621 H 555 H Mean Platelet Volume 8.7 9.2 Neutrophils % 68.0 57.9 Lymphocytes % 22.9 27.0 Monocytes % 6.4 10.1 Eosinophils % 1.7 3.6 Basophils % 0.4 0.8 Nucleated Red Blood Cells % 0.0 0.0 Neutrophils # (Manual) 6 5 Lymphocytes # 2.1 2.1 Monocytes # 0.6 0.8 Eosinophils # 0.2 0.3 Basophils # 0.0 0.1 Nucleated Red Blood Cells # 0.0 0.0 Sodium Level 141 Potassium Level 4.6 Chloride Level 100 Carbon Dioxide Level 29 Anion Gap 17 H Blood Urea Nitrogen 12 Creatinine 0.88 Glucose Level 119 Calcium Level 9.2 Total Bilirubin 0.2 Direct Bilirubin 0.00 Indirect Bilirubin 0.2 Aspartate Amino Transf (AST/SGOT) 46 Alanine Aminotransferase (ALT/SGPT) 46 Alkaline Phosphatase 164 H Total Protein 7.3 Albumin 3.2 L Globulin 4.10 H Albumin/Globulin Ratio 0.78 Medications Medications Current Medications Acetaminophen (Tylenol Liquid) 650 mg Q4H PRN PO PAIN AND OR ELEVATED TEMP; Start 12/13/16 at 02:00 Docusate Sodium (Colace Liquid Cup) 100 mg BID PO Last administered on 20:40; Admin Dose 100 MG; Start 12/13/16 at 09:00 Enoxaparin Sodium (Lovenox) 40 mg DAILY SC Last administered on 12/22/16 09:05 ; Admin Dose 40 MG; Start 12/13/16 at 09:00 Magnesium Hydroxide (Milk Of Mag) 30 ml DAILY PRN PO CONSTIPATION; Start at 02:00 Quetiapine Fumarate (Seroquel) 12.5 mg BID PO Last administered on 12/22/16 20 :41; Admin Dose 12.5 MG; Start 12/13/16 at 09:00 Silver Sulfadiazine (Thermazene 1% 25 Gm) 1 applic DAILY TOP Last administered on 12/22/16 09:06; Admin Dose 1 APPLIC; Start 12/18/16 at 11:00 CAYDEN LAI MD Dec 23, 2016 08:49
[2016-12-23] MEDS: QUETIAPINE 25 MG TAB PO SCH ×2 (08:57→21:11)
[2016-12-23] MEDS: DOCUSATE SODIUM 10 MG/ML (10ML CUP) PO SCH ×2 (08:57→21:11)
[2016-12-23] MEDS: SILVER SULFADIAZINE 1% 25 GM CR TOP SCH (08:57)
[2016-12-23] MEDS: ENOXAPARIN 40 MG/0.4 ML SYG SC SCH (09:03)
--- NOTE | 2016-12-23 12:01 | CONS ---
Date/Time of Note Date/Time of Note DATE: 12/23/16 TIME: 11:59 Consult Date/Type/Reason Admit Date/Time Dec 12, 2016 at 23:20 Subjective Patient comfortable Objective Vital Signs Date Time Temp Pulse Resp B/P Pulse Ox O2 Delivery O2 Flow Rate FiO2 12/23/16 07:44 98.6 83 18 118/57 96 12/21/16 08:00 Room Air Exam Lungs clear Abdomen soft Min assist ambulation Results/Medications Result Diagram: 12/23/16 0644 12/22/16 1304 Results 24 hrs Laboratory Tests Test 12/22/16 13:04 12/23/16 06:44 White Blood Count 9.1 # 7.9 Red Blood Count 4.26 L 3.99 L Hemoglobin 12.4 L 11.6 L Hematocrit 39.5 L 36.8 L Mean Corpuscular Volume 92.7 92.2 Mean Corpuscular Hemoglobin 29.1 29.1 Mean Corpuscular Hemoglobin Concent 31.4 L 31.5 L Red Cell Distribution Width 14.2 14.2 Platelet Count 621 H 555 H Mean Platelet Volume 8.7 9.2 Neutrophils % 68.0 57.9 Lymphocytes % 22.9 27.0 Monocytes % 6.4 10.1 Eosinophils % 1.7 3.6 Basophils % 0.4 0.8 Nucleated Red Blood Cells % 0.0 0.0 Neutrophils # (Manual) 6 5 Lymphocytes # 2.1 2.1 Monocytes # 0.6 0.8 Eosinophils # 0.2 0.3 Basophils # 0.0 0.1 Nucleated Red Blood Cells # 0.0 0.0 Sodium Level 141 Potassium Level 4.6 Chloride Level 100 Carbon Dioxide Level 29 Anion Gap 17 H Blood Urea Nitrogen 12 Creatinine 0.88 Glucose Level 119 Calcium Level 9.2 Total Bilirubin 0.2 Direct Bilirubin 0.00 Indirect Bilirubin 0.2 Aspartate Amino Transf (AST/SGOT) 46 Alanine Aminotransferase (ALT/SGPT) 46 Alkaline Phosphatase 164 H Total Protein 7.3 Albumin 3.2 L Globulin 4.10 H Albumin/Globulin Ratio 0.78 Medications Current Medications Acetaminophen (Tylenol Liquid) 650 mg Q4H PRN PO PAIN AND OR ELEVATED TEMP; Start 12/13/16 at 02:00 Docusate Sodium (Colace Liquid Cup) 100 mg BID PO Last administered on t 08:57; Admin Dose 100 MG; Start 12/13/16 at 09:00 Enoxaparin Sodium (Lovenox) 40 mg DAILY SC Last administered on 12/23/16 09:03 ; Admin Dose 40 MG; Start 12/13/16 at 09:00 Magnesium Hydroxide (Milk Of Mag) 30 ml DAILY PRN PO CONSTIPATION; Start at 02:00 Quetiapine Fumarate (Seroquel) 12.5 mg BID PO Last administered on 12/23/16 08 :57; Admin Dose 12.5 MG; Start 12/13/16 at 09:00 Assessment/Plan Additional Assessment/Plan Rehab- Encephalopathy superimposed on dementia ; R knee ACL/MCL tear Continue rehab activities in addition to family training. anemia Dysphagia-speech therapy-patient is significant aspiration risk however family declining more aggressive treatment. Continue with aspiration precautions Pulm- s/p resp fail/pleural effusion MVP prostate CA-s.p prostatectomy MAYITO BARBER MD Dec 23, 2016 12:00
[2016-12-23 20:00] VITALS: BP 101/58; RESP 18
[2016-12-24 02:00] VITALS: BP 115/62; RESP 18
[2016-12-24 08:01] VITALS: BP 119/58; RESP 18
[2016-12-24] MEDS: DOCUSATE SODIUM 10 MG/ML (10ML CUP) PO SCH ×2 (08:13→20:30)
[2016-12-24] MEDS: QUETIAPINE 25 MG TAB PO SCH ×2 (08:13→20:30)
[2016-12-24] MEDS: ENOXAPARIN 40 MG/0.4 ML SYG SC SCH (08:15)
--- NOTE | 2016-12-24 12:19 | CONS ---
Date/Time of Note Date/Time of Note DATE: 12/24/16 TIME: 12:19 Consult Date/Type/Reason Admit Date/Time Dec 12, 2016 at 23:20 Subjective Comfortable Objective Lungs clear abdomen soft Standby assist to ambulate Vital Signs Date Time Temp Pulse Resp B/P Pulse Ox O2 Delivery O2 Flow Rate FiO2 12/24/16 08:01 97.8 92 18 119/58 98 12/21/16 08:00 Room Air Intake and Output 12/23/16 12/23/16 12/24/16 15:00 23:00 07:00 Intake Total 840 ml 360 ml 220 ml Output Total 400 ml Balance 840 ml -40 ml 220 ml Results/Medications Result Diagram: 12/23/16 0644 12/22/16 1304 Medications Current Medications Acetaminophen (Tylenol Liquid) 650 mg Q4H PRN PO PAIN AND OR ELEVATED TEMP Last administered on 12/23/16 21:11; Admin Dose 650 MG; Start 12/13/16 at 02:00 Docusate Sodium (Colace Liquid Cup) 100 mg BID PO Last administered on 08:13; Admin Dose 100 MG; Start 12/13/16 at 09:00 Enoxaparin Sodium (Lovenox) 40 mg DAILY SC Last administered on 12/24/16 08:15 ; Admin Dose 40 MG; Start 12/13/16 at 09:00 Magnesium Hydroxide (Milk Of Mag) 30 ml DAILY PRN PO CONSTIPATION; Start at 02:00 Quetiapine Fumarate (Seroquel) 12.5 mg BID PO Last administered on 12/24/16 08 :13; Admin Dose 12.5 MG; Start 12/13/16 at 09:00 Assessment/Plan Additional Assessment/Plan Rehab- Encephalopathy superimposed on dementia ; R knee ACL/MCL tear Continue current activities anemia Dysphagia-speech therapy-patient is significant aspiration risk however family declining more aggressive treatment. Continue with aspiration precautions Pulm- s/p resp fail/pleural effusion MVP prostate CA-s.p prostatectomy MAYITO BARBER MD Dec 24, 2016 12:19
--- NOTE | 2016-12-24 17:28 | CONS ---
Date/Time of Note Date/Time of Note DATE: 12/24/16 TIME: 17:23 Assessment/Plan Assessment/Plan Chief Complaint/Hosp Course 86 year old male with recent admission to [facility] for pneumonia, sepsis with encephalopathy likely underlying cognitive decline will require more formal outpatient cognitive testing. Family wishes to take him home and pursue further outpatient work up. Dementia work up will include formal cognitive testing and possibly MRI-PET to further evaluate. Gave card to follow up with Dr. Leigh after discharge from rehab. Problems: Consultation Date/Type/Reason Admit Date/Time Dec 12, 2016 at 23:20 Date of Consultation: Dec 24, 2016 Type of Consultation: Neurology Reason for Consultation evaluation for dementia Referring Provider: CAYDEN LAI MD Hx of Present Illness 86 year old male previously seen at [facility] admitted for sepsis RLL pneumonia with pleural effusion s/p abx with encephalopathy now admitted to rehab unit. Patient evaluated while he was admitted brain imaging was obtained which ruled out any acute ischemic process. He is now at rehab, seen with at bedside. There is concern for an underlying cognitive decline that may have progressed during this hospitalization. Per he has never been officially diagnosed with dementia however recently prior to this admission he has stopped driving, is not paying bills and requires assistance with ADL's. She wishes to take him home with help in the next week and will plan to follow up with neurology for more formal cognitive testing as outpatient. Constitutional: no complaints Eyes: no complaints Respiratory: no complaints Cardiovascular: no complaints Skin: no complaints Psychological: confusion Past Medical History Medical History: cancer (prostate cancer status post prostatectomy, basal cell carcinoma of skin removed), other (baseline cognitive impairments with dementia , history of right knee ACL/MCL tear, osteoporosis, mitral valve prolapse) Social History Alcohol Use: none Smoking Status: Never smoker Drug Use: none Exam/Review of Systems Vital Signs Vitals Vital Signs Date Time Temp Pulse Resp B/P Pulse Ox O2 Delivery O2 Flow Rate FiO2 12/24/16 08:01 97.8 92 18 119/58 98 12/21/16 08:00 Room Air Intake and Output 12/23/16 12/23/16 12/24/16 15:00 23:00 07:00 Intake Total 840 ml 360 ml 220 ml Output Total 400 ml Balance 840 ml -40 ml 220 ml Exam awake and alert oriented to self, hospital [facility], date unable to provide unable to provide name of President when shown the President on tv he can name Trump difficulty with word finding CN: II-XII intact motor: can lift all extremities anti-gravity with no obvious drift no cogwheeling Reflexes 2+ throughout toes down Results Result Diagram: 12/23/16 0644 12/22/16 1304 Medications Medications Current Medications Acetaminophen (Tylenol Liquid) 650 mg Q4H PRN PO PAIN AND OR ELEVATED TEMP Last administered on 12/23/16 21:11; Admin Dose 650 MG; Start 12/13/16 at 02:00 Docusate Sodium (Colace Liquid Cup) 100 mg BID PO Last administered on 08:13; Admin Dose 100 MG; Start 12/13/16 at 09:00 Enoxaparin Sodium (Lovenox) 40 mg DAILY SC Last administered on 12/24/16 08:15 ; Admin Dose 40 MG; Start 12/13/16 at 09:00 Magnesium Hydroxide (Milk Of Mag) 30 ml DAILY PRN PO CONSTIPATION; Start at 02:00 Quetiapine Fumarate (Seroquel) 12.5 mg BID PO Last administered on 12/24/16 08 :13; Admin Dose 12.5 MG; Start 12/13/16 at 09:00 KADY MILLER MD Dec 24, 2016 17:28
[2016-12-24] MEDS: MAGNESIUM HYDROXIDE 30ML CUP PO PRN (18:54)
[2016-12-24 20:00] VITALS: BP 100/58; RESP 18
--- NOTE | 2016-12-24 20:40 | CONS ---
Date/Time of Note Date/Time of Note DATE: 12/24/16 TIME: 20:36 Assessment/Plan Assessment/Plan Chief Complaint/Hosp Course 1. He is now on the acute rehab unit. He is awake . He has been participating with physical therapy. Tentatively will be transferred to home in several days. 2. Right lower lobe pneumonia with loculated pleural effusion . He has completed a course of antibiotics . 3. Dementia with resolving superimposed encephalopathy 4. Malnutrition 5. DNR status Plan: We will continue current comprehensive rehabilitation program.I spoke to his and she is willing to take him home with help . latex foam worker will start the process . I did speak to his daughter Sami yesterday. We brought up the possibility of him going home on hospice. I will discuss this with the family and his today to see if that is something they want to pursue.[facility] has contacted family and will discuss hospice protocol and see if they want to pursue this option for the patient . Problems: Consultation Date/Type/Reason Admit Date/Time Dec 12, 2016 at 23:20 Type of Consultation: Neurology Referring Provider: CAYDEN LAI MD 24 HR Interval Summary Free Text/Dictation He is awake and recognizes me . He is coughing some after swallowing some liquids . Exam/Review of Systems Vital Signs Vitals Vital Signs Date Time Temp Pulse Resp B/P Pulse Ox O2 Delivery O2 Flow Rate FiO2 12/24/16 08:01 97.8 92 18 119/58 98 12/21/16 08:00 Room Air Intake and Output 12/23/16 12/23/16 12/24/16 15:00 23:00 07:00 Intake Total 840 ml 360 ml 220 ml Output Total 400 ml Balance 840 ml -40 ml 220 ml Exam Constitutional: alert, frail Psych: confusion Respiratory: congested cough Cardiovascular: regular rate and rhythm Gastrointestinal: soft Musculoskeletal: nl extremities to inspection Results Result Diagram: 12/23/16 0644 12/22/16 1304 Medications Medications Current Medications Acetaminophen (Tylenol Liquid) 650 mg Q4H PRN PO PAIN AND OR ELEVATED TEMP Last administered on 12/23/16 21:11; Admin Dose 650 MG; Start 12/13/16 at 02:00 Docusate Sodium (Colace Liquid Cup) 100 mg BID PO Last administered on 20:30; Admin Dose 100 MG; Start 12/13/16 at 09:00 Enoxaparin Sodium (Lovenox) 40 mg DAILY SC Last administered on 12/24/16 08:15 ; Admin Dose 40 MG; Start 12/13/16 at 09:00 Magnesium Hydroxide (Milk Of Mag) 30 ml DAILY PRN PO CONSTIPATION Last administered on 12/24/16 18:54; Admin Dose 30 ML; Start 12/13/16 at 02:00 Quetiapine Fumarate (Seroquel) 12.5 mg BID PO Last administered on 12/24/16 20 :30; Admin Dose 12.5 MG; Start 12/13/16 at 09:00 CAYDEN LAI MD Dec 24, 2016 20:40
[2016-12-25 02:00] VITALS: BP 117/63; RESP 18
--- NOTE | 2016-12-25 02:50 | PN ---
DATE: 12/24/2016 PSYCHOLOGY - INDIVIDUAL SESSION - [id number]: The patient is an 86- year-old male who was seen last week. The patient was seen again in bed. The patient's was present with the patient's permission. The patient reports that he does feel that he is making progress and does feel better. The patient is still very weak and still very confused, but it does appear that the patient is improving slightly in his cognition and also in his physical abilities. The patient is anxious to go home and is set up to be discharged early next week. I worked with the patient and his to help them with all the emotional issues surrounding his being ill. The patient's was feeling overwhelmed by all of the issues that she was facing. Dictated By: Ruy Tran, PHD /yvonne/[email or web address] /Document#: [id number]
[2016-12-25 07:30] VITALS: BP 113/67; RESP 20
[2016-12-25] MEDS: ENOXAPARIN 40 MG/0.4 ML SYG SC SCH (08:50)
[2016-12-25] MEDS: DOCUSATE SODIUM 10 MG/ML (10ML CUP) PO SCH ×2 (08:50→21:31)
[2016-12-25] MEDS: QUETIAPINE 25 MG TAB PO SCH ×2 (08:50→21:31)
[2016-12-25] MEDS: MAGNESIUM HYDROXIDE 30ML CUP PO PRN (08:50)
--- NOTE | 2016-12-25 12:44 | CONS ---
Date/Time of Note Date/Time of Note DATE: 12/25/16 TIME: 12:43 Consult Date/Type/Reason Admit Date/Time Dec 12, 2016 at 23:20 Type of Consultation: Neurology Ordering Provider: CAYDEN LAI MD Subjective No new complaints Objective Lungs clear abdomen soft Standby assist ambulation Vital Signs Date Time Temp Pulse Resp B/P Pulse Ox O2 Delivery O2 Flow Rate FiO2 12/25/16 07:30 97.8 90 20 113/67 95 12/21/16 08:00 Room Air Intake and Output 12/24/16 12/24/16 12/25/16 15:00 23:00 07:00 Intake Total 720 ml 360 ml 200 ml Output Total 200 ml Balance 720 ml 160 ml 200 ml Results/Medications Result Diagram: 12/23/16 0644 12/22/16 1304 Medications Current Medications Acetaminophen (Tylenol Liquid) 650 mg Q4H PRN PO PAIN AND OR ELEVATED TEMP Last administered on 12/23/16 21:11; Admin Dose 650 MG; Start 12/13/16 at 02:00 Docusate Sodium (Colace Liquid Cup) 100 mg BID PO Last administered on 08:50; Admin Dose 100 MG; Start 12/13/16 at 09:00 Enoxaparin Sodium (Lovenox) 40 mg DAILY SC Last administered on 12/25/16 08:50 ; Admin Dose 40 MG; Start 12/13/16 at 09:00 Magnesium Hydroxide (Milk Of Mag) 30 ml DAILY PRN PO CONSTIPATION Last administered on 12/25/16 08:50; Admin Dose 30 ML; Start 12/13/16 at 02:00 Quetiapine Fumarate (Seroquel) 12.5 mg BID PO Last administered on 12/25/16 08 :50; Admin Dose 12.5 MG; Start 12/13/16 at 09:00 Assessment/Plan Additional Assessment/Plan Rehab- Encephalopathy superimposed on dementia ; R knee ACL/MCL tear Continue current treatment plan anemia Dysphagia-speech therapy-patient is significant aspiration risk however family declining more aggressive treatment. Continue with aspiration precautions Pulm- s/p resp fail/pleural effusion MVP prostate CA-s.p prostatectomy MAYITO BARBER MD Dec 25, 2016 12:44
--- NOTE | 2016-12-25 13:58 | CONS ---
Date/Time of Note Date/Time of Note DATE: 12/25/16 TIME: 13:55 Assessment/Plan Assessment/Plan Chief Complaint/Hosp Course 1. He is now on the acute rehab unit. He is awake . He has been participating with physical therapy. Tentatively will be transferred to home in several days. He seems more alert today . 2. Right lower lobe pneumonia with loculated pleural effusion . He has completed a course of antibiotics . 3. Dementia with resolving superimposed encephalopathy 4. Malnutrition 5. DNR status Plan: We will continue current comprehensive rehabilitation program.I spoke to his and she is willing to take him home with help . [employer] factory worker will start the process . I did speak to his daughter Sami yesterday. We brought up the possibility of him going home on hospice. I will discuss this with the family and his today to see if that is something they want to pursue.[facility] has contacted family and will discuss hospice protocol and see if they want to pursue this option for the patient . Problems: Consultation Date/Type/Reason Admit Date/Time Dec 12, 2016 at 23:20 Type of Consultation: medicine Referring Provider: CAYDEN LAI MD 24 HR Interval Summary Free Text/Dictation He is feeling better . He is more alert and able to speak better . Constitutional: no complaints Exam/Review of Systems Vital Signs Vitals Vital Signs Date Time Temp Pulse Resp B/P Pulse Ox O2 Delivery O2 Flow Rate FiO2 12/25/16 07:30 97.8 90 20 113/67 95 12/21/16 08:00 Room Air Intake and Output 12/24/16 12/24/16 12/25/16 15:00 23:00 07:00 Intake Total 720 ml 360 ml 200 ml Output Total 200 ml Balance 720 ml 160 ml 200 ml Exam Constitutional: alert, frail Psych: confusion Respiratory: clear to auscultation, diminished breath sounds Cardiovascular: regular rate and rhythm Gastrointestinal: soft Musculoskeletal: nl extremities to inspection Results Result Diagram: 12/23/16 0644 12/22/16 1304 Medications Medications Current Medications Acetaminophen (Tylenol Liquid) 650 mg Q4H PRN PO PAIN AND OR ELEVATED TEMP Last administered on 12/23/16t 21:11; Admin Dose 650 MG; Start 12/13/16 at 02:00 Docusate Sodium (Colace Liquid Cup) 100 mg BID PO Last administered on 08:50; Admin Dose 100 MG; Start 12/13/16 at 09:00 Enoxaparin Sodium (Lovenox) 40 mg DAILY SC Last administered on 12/25/16 08:50 ; Admin Dose 40 MG; Start 12/13/16 at 09:00 Magnesium Hydroxide (Milk Of Mag) 30 ml DAILY PRN PO CONSTIPATION Last administered on 12/25/16 08:50; Admin Dose 30 ML; Start 12/13/16 at 02:00 Quetiapine Fumarate (Seroquel) 12.5 mg BID PO Last administered on 12/25/16 08 :50; Admin Dose 12.5 MG; Start 12/13/16 at 09:00 CAYDEN LAI MD Dec 25, 2016 13:58
[2016-12-25 20:00] VITALS: BP 117/65; RESP 18
[2016-12-26 02:00] VITALS: BP 125/69; RESP 18
[2016-12-26 07:29] LABS: CREATININE 0.87 mg/dl (0.61-1.24)
[2016-12-26 08:03] VITALS: BP 131/56; RESP 18
[2016-12-26] MEDS: ENOXAPARIN 40 MG/0.4 ML SYG SC SCH (08:52)
[2016-12-26] MEDS: DOCUSATE SODIUM 10 MG/ML (10ML CUP) PO SCH ×2 (08:52→20:40)
[2016-12-26] MEDS: QUETIAPINE 25 MG TAB PO SCH ×2 (08:52→20:40)
--- NOTE | 2016-12-26 12:01 | CONS ---
Date/Time of Note Date/Time of Note DATE: 12/26/16 TIME: 12:00 Consult Date/Type/Reason Admit Date/Time Dec 12, 2016 at 23:20 Type of Consultation: medicine Ordering Provider: CAYDEN LAI MD Subjective Comfortable Objective pulm-cta sba transfer Vital Signs Date Time Temp Pulse Resp B/P Pulse Ox O2 Delivery O2 Flow Rate FiO2 12/26/16 08:03 98.0 94 18 131/56 95 Intake and Output 12/25/16 12/25/16 12/26/16 15:00 23:00 07:00 Intake Total 450 ml 420 ml 550 ml Output Total 1 ml Balance 450 ml 419 ml 550 ml Results/Medications Result Diagram: 12/23/16 0644 12/26/16 0558 Results 24 hrs Laboratory Tests Test 12/26/16 05:58 Blood Urea Nitrogen 13 Creatinine 0.87 Medications Current Medications Acetaminophen (Tylenol Liquid) 650 mg Q4H PRN PO PAIN AND OR ELEVATED TEMP Last administered on 12/23/16 21:11; Admin Dose 650 MG; Start 12/13/16 at 02:00 Docusate Sodium (Colace Liquid Cup) 100 mg BID PO Last administered on 08:52; Admin Dose 100 MG; Start 12/13/16 at 09:00 Enoxaparin Sodium (Lovenox) 40 mg DAILY SC Last administered on 12/26/16 08:52 ; Admin Dose 40 MG; Start 12/13/16 at 09:00 Magnesium Hydroxide (Milk Of Mag) 30 ml DAILY PRN PO CONSTIPATION Last administered on 12/25/16 08:50; Admin Dose 30 ML; Start 12/13/16 at 02:00 Quetiapine Fumarate (Seroquel) 12.5 mg BID PO Last administered on 12/26/16 08 :52; Admin Dose 12.5 MG; Start 12/13/16 at 09:00 Assessment/Plan Additional Assessment/Plan Rehab- Encephalopathy superimposed on dementia ; R knee ACL/MCL tear Continue current treatment plan and DC planning anemia Dysphagia-aspiration precautions Pulm- s/p resp fail/pleural effusion MVP prostate CA-s.p prostatectomy MAYITO BARBER MD Dec 26, 2016 12:00
--- NOTE | 2016-12-26 17:01 | CONS ---
Date/Time of Note Date/Time of Note DATE: 12/26/16 TIME: 16:56 Assessment/Plan Assessment/Plan Chief Complaint/Hosp Course 1. He is now on the acute rehab unit. He is awake . He has been participating with physical therapy. Tentatively will be transferred to home in several days. He seems more alert today . 2. Right lower lobe pneumonia with loculated pleural effusion . He has completed a course of antibiotics . 3. Dementia with resolving superimposed encephalopathy 4. Malnutrition 5. DNR status Plan: We will continue current comprehensive rehabilitation program.I spoke to his and she is willing to take him home with help . can worker will start the process . I did speak to his daughter Sami yesterday. We brought up the possibility of him going home on hospice.[facility] has contacted family and will meet with the family tomorrow and discuss hospice protocol and see if they want to pursue this option for the patient . Problems: Consultation Date/Type/Reason Admit Date/Time Dec 12, 2016 at 23:20 Type of Consultation: medicine Referring Provider: CAYDEN LAI MD 24 HR Interval Summary Free Text/Dictation He is in the exercise room with the therapist and working out . He seems more alert . Constitutional: no complaints Exam/Review of Systems Vital Signs Vitals Vital Signs Date Time Temp Pulse Resp B/P Pulse Ox O2 Delivery O2 Flow Rate FiO2 12/26/16 08:03 98.0 94 18 131/56 95 Intake and Output 12/25/16 12/25/16 12/26/16 15:00 23:00 07:00 Intake Total 450 ml 420 ml 550 ml Output Total 1 ml Balance 450 ml 419 ml 550 ml Exam Constitutional: alert Psych: confusion Respiratory: clear to auscultation, diminished breath sounds Cardiovascular: regular rate and rhythm Musculoskeletal: nl extremities to inspection Neurological: confused Results Result Diagram: 12/23/16 0644 12/26/16 0558 Results 24 hrs Laboratory Tests Test 12/26/16 05:58 Blood Urea Nitrogen 13 Creatinine 0.87 Medications Medications Current Medications Acetaminophen (Tylenol Liquid) 650 mg Q4H PRN PO PAIN AND OR ELEVATED TEMP Last administered on 12/23/16 21:11; Admin Dose 650 MG; Start 12/13/16 at 02:00 Docusate Sodium (Colace Liquid Cup) 100 mg BID PO Last administered on 08:52; Admin Dose 100 MG; Start 12/13/16 at 09:00 Enoxaparin Sodium (Lovenox) 40 mg DAILY SC Last administered on 12/26/16 08:52 ; Admin Dose 40 MG; Start 12/13/16 at 09:00 Magnesium Hydroxide (Milk Of Mag) 30 ml DAILY PRN PO CONSTIPATION Last administered on 12/25/16 08:50; Admin Dose 30 ML; Start 12/13/16 at 02:00 Quetiapine Fumarate (Seroquel) 12.5 mg BID PO Last administered on 12/26/16 08 :52; Admin Dose 12.5 MG; Start 12/13/16 at 09:00 CAYDEN LAI MD Dec 26, 2016 17:01
[2016-12-26 20:25] VITALS: BP 135/62; RESP 18
[2016-12-27 07:30] VITALS: BP 114/70; RESP 20
[2016-12-27] MEDS: DOCUSATE SODIUM 10 MG/ML (10ML CUP) PO SCH ×2 (08:48→20:40)
[2016-12-27] MEDS: QUETIAPINE 25 MG TAB PO SCH ×2 (08:48→20:40)
[2016-12-27] MEDS: ENOXAPARIN 40 MG/0.4 ML SYG SC SCH (08:57)
--- NOTE | 2016-12-27 10:45 | CONS ---
Date/Time of Note Date/Time of Note DATE: 12/27/16 TIME: 10:44 Consult Date/Type/Reason Admit Date/Time Dec 12, 2016 at 23:20 Type of Consultation: medicine Ordering Provider: CAYDEN LAI MD Subjective Family met with hospice representatives Objective pulm-cta sba transfer Vital Signs Date Time Temp Pulse Resp B/P Pulse Ox O2 Delivery O2 Flow Rate FiO2 12/27/16 07:30 97.8 80 20 114/70 95 Intake and Output 12/26/16 12/26/16 12/27/16 15:00 23:00 07:00 Intake Total 800 ml 500 ml Output Total 200 ml 250 ml Balance 600 ml 250 ml Results/Medications Result Diagram: 12/23/16 0644 12/26/16 0558 Medications Current Medications Acetaminophen (Tylenol Liquid) 650 mg Q4H PRN PO PAIN AND OR ELEVATED TEMP Last administered on 12/23/16 21:11; Admin Dose 650 MG; Start 12/13/16 at 02:00 Docusate Sodium (Colace Liquid Cup) 100 mg BID PO Last administered on 08:48; Admin Dose 100 MG; Start 12/13/16 at 09:00 Enoxaparin Sodium (Lovenox) 40 mg DAILY SC Last administered on 12/27/16 08:57 ; Admin Dose 40 MG; Start 12/13/16 at 09:00 Magnesium Hydroxide (Milk Of Mag) 30 ml DAILY PRN PO CONSTIPATION Last administered on 12/25/16 08:50; Admin Dose 30 ML; Start 12/13/16 at 02:00 Quetiapine Fumarate (Seroquel) 12.5 mg BID PO Last administered on 12/27/16 08 :48; Admin Dose 12.5 MG; Start 12/13/16 at 09:00 Assessment/Plan Additional Assessment/Plan Rehab- Encephalopathy superimposed on dementia ; R knee ACL/MCL tear Continue current treatment plan. DC planning in progress with hospice anemia Dysphagia-Continue with aspiration precautions Pulm- s/p resp fail/pleural effusion MVP prostate CA-s.p prostatectomy MAYITO BARBER MD Dec 27, 2016 10:45
[2016-12-27 14:00] VITALS: BP 91/65; RESP 20
--- NOTE | 2016-12-27 14:24 | CONS ---
Date/Time of Note Date/Time of Note DATE: 12/27/16 TIME: 14:18 Consult Date/Type/Reason Admit Date/Time Dec 12, 2016 at 23:20 Initial Consult Date 12/24/16 Type of Consultation: medicine Reason for Consultation dementia w/ superimposed delirium, aspiration PNA, dysphagia Ordering Provider: CAYDEN LAI MD Subjective Per nursing no new issues overnight. Patient and deny any new complaints. No fevers, chills, nausea, vomiting, diarrhea, constipation, chest pain, sob, cough, dysuria. Although patient not good historian. Family has met with hospice representatives. Objective Vital Signs Date Time Temp Pulse Resp B/P Pulse Ox O2 Delivery O2 Flow Rate FiO2 12/27/16 07:30 97.8 80 20 114/70 95 Intake and Output 12/26/16 12/26/16 12/27/16 15:00 23:00 07:00 Intake Total 800 ml 500 ml Output Total 200 ml 250 ml Balance 600 ml 250 ml Exam Gen-NAD HEENT- OP clear, mmm CV-rrr, nml s1/s2, no m/r/g Pulm-CTAB on anterior exam Abd-soft, nt/nd, +BS Ext-no c/c/e Results/Medications Result Diagram: 12/23/16 0644 12/26/16 0558 Medications Current Medications Acetaminophen (Tylenol Liquid) 650 mg Q4H PRN PO PAIN AND OR ELEVATED TEMP Last administered on 12/23/16 21:11; Admin Dose 650 MG; Start 12/13/16 at 02:00 Docusate Sodium (Colace Liquid Cup) 100 mg BID PO Last administered on 08:48; Admin Dose 100 MG; Start 12/13/16 at 09:00 Enoxaparin Sodium (Lovenox) 40 mg DAILY SC Last administered on 12/27/16 08:57 ; Admin Dose 40 MG; Start 12/13/16 at 09:00 Magnesium Hydroxide (Milk Of Mag) 30 ml DAILY PRN PO CONSTIPATION Last administered on 12/25/16 08:50; Admin Dose 30 ML; Start 12/13/16 at 02:00 Quetiapine Fumarate (Seroquel) 12.5 mg BID PO Last administered on 12/27/16 08 :48; Admin Dose 12.5 MG; Start 12/13/16 at 09:00 Assessment/Plan Chief Complaint/Hosp Course 86 y/o male pmh baseline cognitive impairment/dementia, osteoporosis, prosate ca s/p prostatectomy, MVP, initially admitted a few weeks ago for aspiration PNA c/b encephalopathy. Patient continues to aspirate per swallow evals.Feeding tube has been found to be inconsistent with goals of care. Now DNR, transitioning to comfort care. Problems: Additional Assessment/Plan #dementia w/ superimposed delirium 2/2 infection -unclear baseline -continue seroquel #PNA-s/p abx -impoved #dysphagia-feeding tube not c/w goals of care -continue aspiration precautions #goals of care-family has met with hospice reps. Plan to transition home with hospice next week. JAYDEN ROLILNS MD Dec 27, 2016 14:24
[2016-12-27 19:41] VITALS: BP 124/64; RESP 20
[2016-12-28 03:08] VITALS: BP 117/68; RESP 18
[2016-12-28] MEDS: DOCUSATE SODIUM 10 MG/ML (10ML CUP) PO SCH ×2 (08:17→21:09)
[2016-12-28] MEDS: ENOXAPARIN 40 MG/0.4 ML SYG SC SCH (08:17)
[2016-12-28] MEDS: QUETIAPINE 25 MG TAB PO SCH ×2 (08:18→21:09)
[2016-12-28 10:45] VITALS: BP 134/58; PULSE 69; RESP 18
--- NOTE | 2016-12-28 14:55 | CONS ---
Date/Time of Note Date/Time of Note DATE: 12/28/16 TIME: 14:53 Consult Date/Type/Reason Admit Date/Time Dec 12, 2016 at 23:20 Initial Consult Date 12/24/16 Type of Consultation: medicine Reason for Consultation dementia w/ superimposed delirium, aspiration PNA, dysphagia Ordering Provider: CAYDEN LAI MD Subjective Per nursing no new issues overnight. Patients deny any new complaints. No fevers, chills, nausea, vomiting, diarrhea, constipation, chest pain, sob, dysuria. History from , patient was sleeping comfortably at time of exam. Does cough when eating, this is not uncommon for him given his known aspiration. Family has met with hospice representatives. Objective Vital Signs Date Time Temp Pulse Resp B/P Pulse Ox O2 Delivery O2 Flow Rate FiO2 12/28/16 03:08 98.0 72 18 117/68 96 Intake and Output 12/27/16 12/27/16 12/28/16 15:00 23:00 07:00 Intake Total 420 ml 220 ml Output Total 250 ml Balance 420 ml -30 ml Exam Gen-NAD CV-rrr, nml s1/s2, no m/r/g Pulm-CTAB on anterior exam Abd-soft, nt/nd, +BS Ext-no c/c/e Results/Medications Result Diagram: 12/26/16 0558 Medications Current Medications Acetaminophen (Tylenol Liquid) 650 mg Q4H PRN PO PAIN AND OR ELEVATED TEMP Last administered on 12/23/16 21:11; Admin Dose 650 MG; Start 12/13/16 at 02:00 Docusate Sodium (Colace Liquid Cup) 100 mg BID PO Last administered on 08:17; Admin Dose 100 MG; Start 12/13/16 at 09:00 Enoxaparin Sodium (Lovenox) 40 mg DAILY SC Last administered on 12/28/16 08:17 ; Admin Dose 40 MG; Start 12/13/16 at 09:00 Magnesium Hydroxide (Milk Of Mag) 30 ml DAILY PRN PO CONSTIPATION Last administered on 12/25/16 08:50; Admin Dose 30 ML; Start 12/13/16 at 02:00 Quetiapine Fumarate (Seroquel) 12.5 mg BID PO Last administered on 12/28/16 08 :18; Admin Dose 12.5 MG; Start 12/13/16 at 09:00 Assessment/Plan Chief Complaint/Hosp Course 86 y/o male pmh baseline cognitive impairment/dementia, osteoporosis, prosate ca s/p prostatectomy, MVP, initially admitted a few weeks ago for aspiration PNA c/b encephalopathy. Patient continues to aspirate per swallow evals.Feeding tube has been found to be inconsistent with goals of care. Now DNR, transitioning to comfort care. Problems: Additional Assessment/Plan #dementia w/ superimposed delirium 2/2 infection -unclear baseline -continue seroquel #PNA-s/p abx -impoved #dysphagia-feeding tube not c/w goals of care -continue aspiration precautions #goals of care-family has met with hospice reps. Plan to transition home with hospice next week. JAYDEN ROLLINS MD Dec 28, 2016 14:55
[2016-12-28 20:00] VITALS: BP 106/61; RESP 18
[2016-12-29 02:00] VITALS: BP 102/55; RESP 18
[2016-12-29 07:30] VITALS: BP 110/61; RESP 18
[2016-12-29] MEDS: QUETIAPINE 25 MG TAB PO SCH ×2 (09:24→20:32)
[2016-12-29] MEDS: ENOXAPARIN 40 MG/0.4 ML SYG SC SCH (09:24)
[2016-12-29] MEDS: DOCUSATE SODIUM 10 MG/ML (10ML CUP) PO SCH ×2 (09:24→20:32)
--- NOTE | 2016-12-29 11:34 | CONS ---
Date/Time of Note Date/Time of Note DATE: 12/29/16 TIME: 11:33 Consult Date/Type/Reason Admit Date/Time Dec 12, 2016 at 23:20 Type of Consultation: medicine Ordering Provider: CAYDEN LAI MD Subjective Comfortable Objective Vital Signs Date Time Temp Pulse Resp B/P Pulse Ox O2 Delivery O2 Flow Rate FiO2 12/29/16 07:30 97.6 81 18 110/61 96 Intake and Output 12/28/16 12/28/16 12/29/16 15:00 23:00 07:00 Intake Total 400 ml Balance 400 ml Interdisciplinary Team Conference: Bowel-continent/incontinent Bladder-continent/incontinent Integument-clean dry and intact OT- Cdnqbsci-[id number] Nyopsgj-qzitgru-toltg Toileting-contact guard PT Bed mobility-standby assist Transfers-standby assist Ambulation-standby assist Speech therapy Cognition-maximal Dysphasia-pure nectar thick Interdisciplinary team conference held today please see note. Team is working towards discharge on 12/30 with physical therapy and Occupational Therapy follow- up. Results/Medications Result Diagram: 12/26/16 0558 Medications Current Medications Acetaminophen (Tylenol Liquid) 650 mg Q4H PRN PO PAIN AND OR ELEVATED TEMP Last administered on 12/23/16 21:11; Admin Dose 650 MG; Start 12/13/16 at 02:00 Docusate Sodium (Colace Liquid Cup) 100 mg BID PO Last administered on 09:24; Admin Dose 100 MG; Start 12/13/16 at 09:00 Enoxaparin Sodium (Lovenox) 40 mg DAILY SC Last administered on 12/29/16 09:24 ; Admin Dose 40 MG; Start 12/13/16 at 09:00 Magnesium Hydroxide (Milk Of Mag) 30 ml DAILY PRN PO CONSTIPATION Last administered on 12/25/16 08:50; Admin Dose 30 ML; Start 12/13/16 at 02:00 Quetiapine Fumarate (Seroquel) 12.5 mg BID PO Last administered on 12/29/16 09 :24; Admin Dose 12.5 MG; Start 12/13/16 at 09:00 MAYITO BARBER MD Dec 29, 2016 11:34
[2016-12-29 14:00] VITALS: BP 95/54; RESP 18
--- NOTE | 2016-12-29 14:12 | CONS ---
Date/Time of Note Date/Time of Note DATE: 12/29/16 TIME: 14:08 Assessment/Plan Assessment/Plan Chief Complaint/Hosp Course 1. He is now on the acute rehab unit. He has been working with physical therapy and Occupational Therapy. He will be discharged to home tomorrow with hospice. The family has discussed this with the [facility] hospice sales representative printing paper. The family is in agreement with this plan. 2. Right lower lobe pneumonia with loculated pleural effusion . He has completed a course of antibiotics . 3. Dementia with resolving superimposed encephalopathy 4. Malnutrition 5. DNR status 6. Dysphagia with some aspiration. He is tolerating a pured nectar thick diet and has not had any aspiration episodes here in the hospital. Plan: We will continue current comprehensive rehabilitation program.I spoke to his and she is willing to take him home with help . lithography contact worker will start the process . I did speak to his daughter Sami , who is representing the family. The patient will be discharged home tomorrow with hospice Problems: Consultation Date/Type/Reason Admit Date/Time Dec 12, 2016 at 23:20 Type of Consultation: medicine Referring Provider: CAYDEN LAI MD 24 HR Interval Summary Free Text/Dictation Patient is up walking with a walker and with the physical therapist. He is confused. Constitutional: no complaints Exam/Review of Systems Vital Signs Vitals Vital Signs Date Time Temp Pulse Resp B/P Pulse Ox O2 Delivery O2 Flow Rate FiO2 12/29/16 07:30 97.6 81 18 110/61 96 Intake and Output 12/28/16 12/28/16 12/29/16 15:00 23:00 07:00 Intake Total 400 ml Balance 400 ml Exam Constitutional: alert, frail Psych: confusion Respiratory: clear to auscultation, diminished breath sounds Cardiovascular: regular rate and rhythm Gastrointestinal: non-tender, soft Musculoskeletal: nl extremities to inspection Results Result Diagram: 12/26/16 0558 Medications Medications Current Medications Acetaminophen (Tylenol Liquid) 650 mg Q4H PRN PO PAIN AND OR ELEVATED TEMP Last administered on 12/23/16 21:11; Admin Dose 650 MG; Start 12/13/16 at 02:00 Docusate Sodium (Colace Liquid Cup) 100 mg BID PO Last administered on 09:24; Admin Dose 100 MG; Start 12/13/16 at 09:00 Enoxaparin Sodium (Lovenox) 40 mg DAILY SC Last administered on 12/29/16 09:24 ; Admin Dose 40 MG; Start 12/13/16 at 09:00 Magnesium Hydroxide (Milk Of Mag) 30 ml DAILY PRN PO CONSTIPATION Last administered on 12/25/16 08:50; Admin Dose 30 ML; Start 12/13/16 at 02:00 Quetiapine Fumarate (Seroquel) 12.5 mg BID PO Last administered on 12/29/16 09 :24; Admin Dose 12.5 MG; Start 12/13/16 at 09:00 CAYDEN LAI MD Dec 29, 2016 14:12
[2016-12-29 20:00] VITALS: BP 116/61; RESP 18
[2016-12-30 02:00] VITALS: BP 109/64; RESP 18
[2016-12-30 07:06] LABS: BASOPHILS % 0.5 % (0.0-2.0); EOSINOPHILS # 0.2 10^3/ul (0.0-0.5); EOSINOPHILS % 3.4 % (0.0-7.0); HEMATOCRIT 36.1 % (42.0-52.0); HEMOGLOBIN 11.6 g/dl (14.0-18.0); LYMPHOCYTES # 2.4 10^3/ul (0.8-2.9); LYMPHOCYTES % 39.3 % (15.0-51.0); MEAN CORPUSCULAR HEMOGLOBIN 29.8 pg (29.0-33.0); MEAN CORPUSCULAR HGB CONC 32.1 g/dl (32.0-37.0); MEAN CORPUSCULAR VOLUME 92.8 fl (82.0-101.0); MEAN PLATELET VOLUME 9.3 fl (7.4-10.4); MONOCYTE # 0.6 10^3/ul (0.3-0.9); NEUTROPHILS % 46.5 % (39.0-77.0); PLATELET COUNT 347 10^3/UL (140-415); RED BLOOD COUNT 3.89 10^6/ul (4.70-6.10); RED CELL DISTRIBUTION WIDTH 14.7 % (11.5-14.5); WHITE BLOOD COUNT 6.2 10^3/ul (4.8-10.8)
[2016-12-30 07:30] LABS: CREATININE 0.9 mg/dl (0.61-1.24)
[2016-12-30 08:00] VITALS: BP 119/68; RESP 18
[2016-12-30] MEDS: QUETIAPINE 25 MG TAB PO SCH (08:42)
[2016-12-30] MEDS: DOCUSATE SODIUM 10 MG/ML (10ML CUP) PO SCH (08:43)
[2016-12-30] MEDS: ENOXAPARIN 40 MG/0.4 ML SYG SC SCH (08:48)
--- NOTE | 2016-12-30 08:51 | CONS ---
Date/Time of Note Date/Time of Note DATE: 12/30/16 TIME: 08:48 Assessment/Plan Assessment/Plan Chief Complaint/Hosp Course 1. He is now on the acute rehab unit. He has been working with physical therapy and Occupational Therapy. He will be discharged to home today with hospice. The family has discussed this with the [facility] hospice b2b outside sales representative. The family is in agreement with this plan. 2. Right lower lobe pneumonia with loculated pleural effusion . He has completed a course of antibiotics . 3. Dementia with resolving superimposed encephalopathy 4. Malnutrition 5. DNR status 6. Dysphagia with some aspiration. He is tolerating a pured nectar thick diet and has not had any aspiration episodes here in the hospital. Plan: We will continue current comprehensive rehabilitation program.I spoke to his and she is willing to take him home with help . maintenance worker municipal will start the process . I did speak to his daughter Sami , who is representing the family. The patient will be discharged home today with hospice Problems: Consultation Date/Type/Reason Admit Date/Time Dec 12, 2016 at 23:20 Type of Consultation: medicine Referring Provider: CAYDEN LAI MD 24 HR Interval Summary Free Text/Dictation He is awake and responsive . Constitutional: disoriented, no complaints Exam/Review of Systems Vital Signs Vitals Vital Signs Date Time Temp Pulse Resp B/P Pulse Ox O2 Delivery O2 Flow Rate FiO2 12/30/16 02:00 98.2 76 18 109/64 95 Intake and Output 12/29/16 12/29/16 12/30/16 15:00 23:00 07:00 Intake Total 120 ml Balance 120 ml Exam Constitutional: alert, frail Psych: confusion Neck: supple Respiratory: clear to auscultation Cardiovascular: regular rate and rhythm Gastrointestinal: soft Musculoskeletal: nl extremities to inspection Results Result Diagram: 12/30/16 0612 12/30/16 0612 Results 24 hrs Laboratory Tests Test 12/30/16 06:12 White Blood Count 6.2 # Red Blood Count 3.89 L Hemoglobin 11.6 L Hematocrit 36.1 L Mean Corpuscular Volume 92.8 Mean Corpuscular Hemoglobin 29.8 Mean Corpuscular Hemoglobin Concent 32.1 Red Cell Distribution Width 14.7 H Platelet Count 347 # Mean Platelet Volume 9.3 Neutrophils % 46.5 Lymphocytes % 39.3 Monocytes % 10.0 Eosinophils % 3.4 Basophils % 0.5 Nucleated Red Blood Cells % 0.0 Neutrophils # (Manual) 2.9 Lymphocytes # 2.4 Monocytes # 0.6 Eosinophils # 0.2 Basophils # 0.0 Nucleated Red Blood Cells # 0.0 Blood Urea Nitrogen 14 Creatinine 0.90 Medications Medications Current Medications Acetaminophen (Tylenol Liquid) 650 mg Q4H PRN PO PAIN AND OR ELEVATED TEMP Last administered on 12/23/16 21:11; Admin Dose 650 MG; Start 12/13/16 at 02:00 Docusate Sodium (Colace Liquid Cup) 100 mg BID PO Last administered on 20:32; Admin Dose 100 MG; Start 12/13/16 at 09:00 Enoxaparin Sodium (Lovenox) 40 mg DAILY SC Last administered on 12/29/16 09:24 ; Admin Dose 40 MG; Start 12/13/16 at 09:00 Magnesium Hydroxide (Milk Of Mag) 30 ml DAILY PRN PO CONSTIPATION Last administered on 12/25/16 08:50; Admin Dose 30 ML; Start 12/13/16 at 02:00 Quetiapine Fumarate (Seroquel) 12.5 mg BID PO Last administered on 12/29/16 20 :32; Admin Dose 12.5 MG; Start 12/13/16 at 09:00 CAYDEN LAI MD Dec 30, 2016 08:51
--- NOTE | 2016-12-30 08:53 | PDOCDIS ---
Discharge Instructions CONDITION Patient Condition: Fair HOME CARE INSTRUCTIONS: Diet Instructions: Special Diet: pureed with nectar thick ACTIVITY: Activity Restrictions: Slowly Increase Activity Rest between Activity Avoid heavy lifting Do not operate Machinery Do not operate Power Tool Weight Bearing Bathing Restrictions: CAYDEN Leyva MD Dec 30, 2016 08:53
--- NOTE | 2016-12-30 12:25 | DS ---
Date/Time of Note Date/Time of Note DATE: 12/30/16 TIME: 12:20 Discharge Summary Admission/Discharge Info Admit Date/Time Dec 12, 2016 at 23:20 Discharge Date/Time Dec 30, 2016 at 11:05 Discharge Diagnosis 1.Encephalopathy superimposed on dementia 2.R knee ACL/MCL tear 3.anemia 4.Dysphagia-speech therapy 5.s/p resp fail/pleural effusion 6.MVP 7.prostate CA-s.p prostatectomy 8. 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 Work up done include CT head which showed no acute intracranial findings. CT Abdomen was unremarkable. CXR showed right sided pleural effusion with pneumonia. The patient was followed by pulmonary team and underwent thoracentesis. The patient was also started on antibiotics. The patient was evaluated bys speech therapy and underwent MBSS which showed silent aspiration even with puree and nectar thick and recommended alternate means of obtaining nutrition but patient and family declined feeding tube, understanding risks including further aspiration in the future, and patient was placed on puree diet with nectar thick liquids. The patient was evaluated by neurology and felt to have acute encephalopathy superimposed on dementia. The patient did work with physical and occupational therapies and noted to have a significant functional decline. Currently requiring max assist for his basic mobility and self care ADLs. Due to ongoing medical comorbidities requiring close physician follow up and significant functional decline the patient was thought to benefit from acute inpatient rehabilitation. Hospital Course Patient was admitted for comprehensive interdisciplinary acute rehabilitation. Patient made gradual functional gains and improved to a minimal level for self care and mobility, including ambulating over 150 feet with the use of a front wheeled walker by discharge. He has significant dysphagia, and is on a dysphagia diet. Family education provided. Patient will follow up with PMD upon DC.The patient will be discharged home today with hospice. Home Meds No Active Prescriptions or Reported Meds Primary Care Provider Jose Goncalves MD Pending Labs Laboratory Tests Test 8/29/17 06:12 White Blood Count 6.210^3/ul (4.8-10.8) Red Blood Count 3.8910^6/ul (4.70-6.10) Hemoglobin 11.6g/dl (14.0-18.0) Hematocrit 36.1% (42.0-52.0) Mean Corpuscular Volume 92.8fl (82.0-101.0) Mean Corpuscular Hemoglobin 29.8pg (29.0-33.0) Mean Corpuscular Hemoglobin Concent 32.1g/dl (32.0-37.0) Red Cell Distribution Width 14.7% (11.5-14.5) Platelet Count 82917^3/UL (140-415) Mean Platelet Volume 9.3fl (7.4-10.4) Neutrophils % 46.5% (39.0-77.0) Lymphocytes % 39.3% (15.0-51.0) Monocytes % 10.0% (0.0-11.0) Eosinophils % 3.4% (0.0-7.0) Basophils % 0.5% (0.0-2.0) Nucleated Red Blood Cells % 0.0/100WBC (0.0-0.0) Neutrophils # (Manual) 2.910^3/ul (1.7-7.5) Lymphocytes # 2.410^3/ul (0.8-2.9) Monocytes # 0.610^3/ul (0.3-0.9) Eosinophils # 0.210^3/ul (0.0-0.5) Basophils # 0.010^3/ul (0.0-0.1) Nucleated Red Blood Cells # 0.010^3/ul (0.0-0.0) Blood Urea Nitrogen 14mg/dl (7-20) Creatinine 0.90mg/dl (0.61-1.24) MAYITO BARBER MD Dec 30, 2016 12:25
== END 2016-12-30 11:05 | disposition hospice, home (50) | DRG 70 ==
LOC: VRC 23:20
PROVIDERS: ADMIT Physical Medicine & Rehabilitation; ATTEND Internal Medicine
DX: G93.41 Metabolic encephalopathy (principal); J18.9 Pneumonia, unspecified organism; E46 Unspecified protein-calorie malnutrition; F03.90 Unspecified dementia, unspecified severity, without behavioral disturbance, psychotic disturbance, mood disturbance, and anxiety; D64.9 Anemia, unspecified; I34.1 Nonrheumatic mitral (valve) prolapse; R13.10 Dysphagia, unspecified; F06.31 Mood disorder due to known physiological condition with depressive features; Z74.09 Other reduced mobility; Z66 Do not resuscitate; R53.81 Other malaise; R60.9 Edema, unspecified; M81.0 Age-related osteoporosis without current pathological fracture; G31.84 Mild cognitive impairment of uncertain or unknown etiology; Z68.20 Body mass index [BMI] 20.0-20.9, adult
CPT/HCPCS: 71010; 80053; 81001; 82565; 84520; 85025; 87081; 87086; 92507; 92523; 92526; 92610; 97110; 97112; 97116; 97150; 97162; 97167; 97530; 97535; 97542; J1650